=== PATIENT | male | born 1955 | race Caucasian/White ===

== ENCOUNTER 2018-02-01 16:32 | Inpatient (IN) | payer MEDICARE, MEDICAID ==
--- NOTE | 2018-02-01 17:27 | ED Physician Chart ---
ED Chief Complaint/HPI - Patient Information Date Seen:: 02/01/18 Time Seen:: 16:30 Chief Complaint:: Agitation History of Present Illness:: onset x 2 days of agitation and hostile behavior; no report of trauma, SIs, H/As , S/T, neck pain, cough, C/P, SOB, Abd. Pain, A/N/V/D/C, fever, chills, or urinary s/s Allergies:: Allergies Allergy/AdvReac Type Severity Reaction Status Date / Time lidocaine Allergy Verified 02/01/18 16:48 Penicillins [PCN] Allergy Verified 02/01/18 16:48 triethanolamine AdvReac Verified 02/01/18 16:48 Vitals:: Vital Signs - 8 hr 02/01/18 16:32 Temp 98.0 F HR 51 RR 16 BP 149/80 O2 Sat % 96 Historian:: Patient, EMS Review:: Nurse's Note Reviewed, Old Chart Reviewed, EMS run form Reviewed ED Review of Systems - Review of Systems General/Constitutional: No fever, No chills, No weight loss, Weakness, No diaphoresis, No edema, No loss of appetite Skin: No skin lesions, No rash, No bruising Head: No headache, No light-headedness Eyes: No loss of vision, No pain, No diplopia ENT: No earache, No nasal drainage, No sore throat, No tinnitus Neck: No neck pain, No swelling, No thyromegaly, No stiffness, No mass noted Cardio Vascular: No chest pain, No palpitations, No PND, No orthopnea, No edema Pulmonary: No SOB, No cough, No sputum, No wheezing GI: No nausea, No vomiting, No diarrhea, No pain, No melena, No hematochezia, No constipation, No hematemesis G/U: No dysuria, No frequency, No hematuria, No nacturia Musculoskeletal: No bone or joint pain, No back pain, No muscle pain Endocrine: No polyuria, No polydipsia Psychiatric: No prior psych history, No depression, No anxiety, No suicidal ideation, No homicidal ideation, No auditory hallucination, No visual hallucination Hematopoietic: No bruising, No lymphadenopathy Allergic/Immuno: No urticaria, No angioedema Neurological: No syncope, No focal symptoms, Weakness, No paresthesia, No headache, No seizure, No dizziness, Confusion, No vertigo ED Past Medical History - Past Medical History Obtainable: Yes Past Medical History: HTN, CVA/TIA, Dyslipidemia, PUD/GERD, Dementia, Other ( Cirrhosis) Family History: HTN Social History: Non Smoker, Alcohol, No Drug Use, Single, Care Facility Surgical History: None Psychiatricy History: Bipolar, Dementia Medication: Reviewed Family Medical History - Family Member Mother History Unknown: Yes Ethnicity: Non- Living Status: Unknown ED Physical Exam - Physical Examination General/Constitutional: Awake, Well-developed, well-nourished, Alert, No distress, GCS 15, Non-toxic appearing, Ambulatory Head: Atraumatic Eyes: Lids, conjuctiva normal, PERRL, EOMI Skin: Nl inspection, No rash, No skin lesions, No ecchymosis, Well hydrated, No lymphadenopathy ENMT: External ears, nose nl, TM canals nl, Nasal exam nl, Lips, teeth, gums nl , Oropharynx nl, Tonsils nl Neck: Nontender, Full ROM w/o pain, No JVD, No nuchal rigidity, No bruit, No mass, No stridor Respiratory: Nl effort/Exclusion, Clear to Auscultation, No Wheeze/Rhonchi/Rales Cardio Vascular: RRR, No murmur, gallop, rubs, NL S1 S2, Carotid/Femoral/Distal pulses equal bilaterally GI: No tenderness/rebounding/guarding, No organomegaly, No hernia, Normal BS's, Nondistended, No mass/bruits, No McBurney tenderness : No CVA tenderness Extremities: No tenderness or effusion, Full ROM, normal strength in all extremities, No edema, Normal digits & nails Neuro/Psych: Alert/oriented, DTR's symmetric, Normal sensory exam, Normal motor strength, Judgement/insight normal, Mood normal, Normal gait, No focal deficits Other Neuro/Psych comments:: + Psychomotor Agitation; no SIs; Mood/Affect: Labile; Misc: Normal back, No paraspinal tenderness ED Labs/Radiology/EKG Results - Lab Results Comments:: unremarkable - EKG Interpretations EKG Time:: 17:08 Rate & Rhythm: 49; SB Comments:: non-specific st-t changes ED Septic Shock - . Is Septic Shock (SBP<90, OR Lactate>4 mmol\L) present?: No - <6hrs of presentation: Vital Signs: Vital Signs - 8 hr 02/01/18 16:32 Temp 98.0 F HR 51 RR 16 BP 149/80 O2 Sat % 96 ED Reassessment (Disposition) - Reassessment Reassessment Condition:: Improved - Diagnosis Diagnosis:: Agitation; Bipolar Disorder; Medical Clearance; Psychosis - Aftercare/Follow up Instructions Aftercare/Follow-Up Instructions:: Counseled pt regarding lab results/diagnosis & need follow up, Counseled pt & family regarding lab results/diagnosis & need follow up - Patient Disposition Discharge/Transfer:: Acute Care w/in this hosp Admitted to:: [facility] Condition at Disposition:: Stable, Improved ED Discharge Plan - Patient Disposition Instructions: Psychosis
[2018-02-01 17:29] LABS: % MONOCYTES 8.3 % (2.0-10.0); EOSINOPHILE ABSOLUTE 0.1 Th/cmm (0.1-0.4); MEAN CORPUSCULAR HGB CONC 33.6 pg (28.0-36.0); MONOCYTE ABSOLUTE 0.4 Th/cmm (0.3-1.0)
[2018-02-01 17:32] LABS: % BASOPHILS 0.9 % (0.0-2.0); % EOSINOPHILS 2.9 % (0.0-5.0); % LYMPHOCYTES 44.3 % (20.0-50.0); % NEUTROPHILS 43.6 % (40.0-80.0); HEMATOCRIT 43.7 % (41.0-60); HEMOGLOBIN 14.7 gm/dL (12-16); MEAN CELL VOLUME 88.6 fl (80-99); MEAN CORPUSCULAR HEMOGLOBIN 29.7 pg (27.0-31.0); PLATELET COUNT 89 Th/cmm (150-400); RED BLOOD COUNT 4.93 Mil/cmm (3.80-5.80); RED CELL DISTRIBUTION WIDTH 13.9 % (11.5-20.0); WHITE BLOOD COUNT 4.5 Th/cmm (4.8-10.8)
[2018-02-01 19:15] LABS: ALBUMIN 3.4 gm/dL (4.2-5.5); ALKALINE PHOSPHATASE 62 U/L (34-104); ANION GAP 9.7 (7.0-16.0); BILIRUBIN,TOTAL 0.4 mg/dL (0.3-1.0); BUN - UREA NITROGEN 17 mg/dL (7-25); CALCIUM SERUM 8.8 mg/dL (8.6-10.3); CARBON DIOXIDE 25.6 mEq/L (21.0-31.0); CHLORIDE 107 mEq/L (98-107); CHOLESTEROL 146 mg/dL (<200); CREATININE - SERUM 1.3 mg/dL (0.7-1.3); GFR AFRICAN-AMERICAN > 60.0 ml/min (>90); GFR NON AFRICAN-AMERICAN 58.9 ml/min; GLUCOSE 89 mg/dL (70-105); HDL -HIGH DENSITY LIPOPROTEIN 27 mg/dL (23-92); POTASSIUM SERUM 4.3 mEq/L (3.5-5.1); SALICYLATES (ASPIRIN) < 25.0 mg/L (30.0-100.0); SGOT 85 U/L (13-39); SGPT/ALT 100 U/L (7-52); SODIUM SERUM 138 mEq/L (136-145); TOTAL PROTEIN,SERUM 6.9 gm/dL (6.0-8.3); TRIGLYCERIDES 114 mg/dL (<150)
[2018-02-01 19:35] LABS: ACETAMINOPHEN < 10.0 ug/mL (10.0-30.0)
[2018-02-01 23:35] VITALS: BP 140/75
[2018-02-01] MEDS ORDERED: APAP/Codeine 300 mg/30 mg Tab PO PRN (23:52)
[2018-02-01] MEDS ORDERED: Magnesium Hydroxide (MOM) 30 mL UDC PO PRN (23:52)
[2018-02-02] MEDS: Multivitamin w/ Minerals Tab PO SCH (09:18)
[2018-02-02] MEDS: Aspirin 81mg Chewable Tab PO SCH (09:18)
[2018-02-02 13:32] LABS: A1C % 5.6 % (4.0-6.0)
--- NOTE | 2018-02-02 13:33 | Internal Medicine Prog Note ---
Internal Medicine Subjective - Subjective Service Date: 02/02/18 ([id number]) Internal Medicine Objective - Results Result Diagrams: 02/01/18 17:20 02/01/18 17:20 Recent Labs: Laboratory Last Values WBC 4.5 Th/cmm (4.8-10.8) L 02/01/18 17:20 RBC 4.93 Mil/cmm (3.80-5.80) 02/01/18 17:20 Hgb 14.7 gm/dL (12-16) 02/01/18 17:20 Hct 43.7 % (41.0-60) 02/01/18 17:20 MCV 88.6 fl (80-99) 02/01/18 17:20 MCH 29.7 pg (27.0-31.0) 02/01/18 17:20 MCHC Differential 33.6 pg (28.0-36.0) 02/01/18 17:20 RDW 13.9 % (11.5-20.0) 02/01/18 17:20 Plt Count 89 Th/cmm (150-400) L 02/01/18 17:20 MPV 8.0 fl 02/01/18 17:20 Neutrophils % 43.6 % (40.0-80.0) 02/01/18 17:20 Lymphocytes % 44.3 % (20.0-50.0) 02/01/18 17:20 Monocytes % 8.3 % (2.0-10.0) 02/01/18 17:20 Eosinophils % 2.9 % (0.0-5.0) 02/01/18 17:20 Basophils % 0.9 % (0.0-2.0) 02/01/18 17:20 Sodium 138 mEq/L (136-145) 02/01/18 17:20 Potassium 4.3 mEq/L (3.5-5.1) 02/01/18 17:20 Chloride 107 mEq/L (98-107) 02/01/18 17:20 Carbon Dioxide 25.6 mEq/L (21.0-31.0) 02/01/18 17:20 Anion Gap 9.7 (7.0-16.0) 02/01/18 17:20 BUN 17 mg/dL (7-25) 02/01/18 17:20 Creatinine 1.3 mg/dL (0.7-1.3) 02/01/18 17:20 Est GFR ( Amer) > 60.0 ml/min (>90) 02/01/18 17:20 Est GFR (Non-Af Amer) 58.9 ml/min 02/01/18 17:20 BUN/Creatinine Ratio 13.1 02/01/18 17:20 Glucose 89 mg/dL (70-105) 02/01/18 17:20 Calcium 8.8 mg/dL (8.6-10.3) 02/01/18 17:20 Total Bilirubin 0.4 mg/dL (0.3-1.0) 02/01/18 17:20 AST 85 U/L (13-39) H 02/01/18 17:20 ALT 100 U/L (7-52) H 02/01/18 17:20 Alkaline Phosphatase 62 U/L (34-104) 02/01/18 17:20 Total Protein 6.9 gm/dL (6.0-8.3) 02/01/18 17:20 Albumin 3.4 gm/dL (4.2-5.5) L 02/01/18 17:20 Globulin 3.5 gm/dL 02/01/18 17:20 Albumin/Globulin Ratio 1.0 (1.0-1.8) 02/01/18 17:20 Triglycerides 114 mg/dL (<150) 02/01/18 17:20 Cholesterol 146 mg/dL (<200) 02/01/18 17:20 LDL Cholesterol Direct 103 mg/dL (75-193) 02/01/18 17:20 HDL Cholesterol 27 mg/dL (23-92) 02/01/18 17:20 TSH 6.79 uIU/ml (0.34-5.60) H 02/01/18 17:20 Salicylates < 25.0 mg/L (30.0-100.0) L 02/01/18 17:20 Acetaminophen < 10.0 ug/mL (10.0-30.0) L 02/01/18 17:20 Ethyl Alcohol < 10 mg/dL (0-10) 02/01/18 17:20 - Physical Exam Vitals and I&O: Vital Signs Temp 97.8 F 02/01/18 21:40 Pulse 59 02/02/18 09:19 Resp 18 02/01/18 21:40 BP 107/57 02/02/18 09:19 Pulse Ox 96 02/01/18 21:40 Active Medications: Current Medications Acetaminophen (Tylenol) 650 mg PO Q4HR PRN PRN Reason: PAIN Stop: 04/02/18 23:51 Acetaminophen/Codeine Phosphate (Tylenol W/Codeine #3) 1 tab PO QID PRN PRN Reason: PAIN Stop: 04/02/18 23:51 Amiodarone HCl (Cordarone) 200 mg PO BID [facility] Stop: 04/03/18 08:59 Last Admin: 02/02/18 09:11 Dose: Not Given Aspirin (Aspirin Chewable) 162 mg PO DAILY [facility] Stop: 04/03/18 08:59 Last Admin: 02/02/18 09:18 Dose: 162 mg Digoxin (Lanoxin) 0.125 mg PO MWF [facility] Stop: 04/05/18 08:59 Docusate Sodium (Colace) 100 mg PO DAILY [facility] Stop: 04/03/18 08:59 Last Admin: 02/02/18 09:18 Dose: 100 mg Famotidine (Pepcid) 20 mg PO BID [facility] Stop: 04/03/18 08:59 Last Admin: 02/02/18 09:18 Dose: 20 mg Lorazepam (Ativan) 0.5 mg PO Q6HR PRN; Protocol PRN Reason: Anxiety Stop: 04/03/18 02:36 Magnesium Hydroxide (Milk Of Magnesia) 30 ml PO DAILY PRN PRN Reason: Constipation Stop: 04/02/18 23:51 Metoprolol Tartrate (Lopressor) 25 mg PO BID [facility] Stop: 04/03/18 08:59 Last Admin: 02/02/18 09:19 Dose: Not Given Mirtazapine (Remeron) 30 mg PO HS [facility] Stop: 04/03/18 20:59 Rivaroxaban (Xarelto) 10 mg PO DAILY [facility] Stop: 04/03/18 08:59 Last Admin: 02/02/18 09:20 Dose: Not Given Sucralfate (Carafate) 1 gm PO ACHS [facility] Stop: 04/03/18 07:29 Last Admin: 02/02/18 12:30 Dose: Not Given Zolpidem Tartrate (Ambien) 5 mg PO HS PRN PRN Reason: Insomnia Stop: 04/03/18 02:40
--- NOTE | 2018-02-02 14:42 | History & Physical ---
ADMIT DATE: 02/02/2018 CHIEF COMPLAINT: Agitation. HISTORY OF PRESENT ILLNESS: This is a 63-year-old male, who is a [place] [facility] resident, admitted to the Geropsych Unit due to a 3-day history of agitation, hostile behavior towards nursing staff. PAST MEDICAL HISTORY: Hypertension, CVA, TIA, dyslipidemia, PAD, GERD, dementia, and cirrhosis. FAMILY HISTORY: Noncontributory. SOCIAL HISTORY: The patient is a [place] [facility] resident, requiring 24-hour nursing care. SURGICAL HISTORY: Unknown. MEDICATIONS: Please see medication sheet. REVIEW OF SYSTEMS: GENERAL: Denies any fevers, any chills. CARDIOVASCULAR: Denies chest pain. RESPIRATORY: Denies shortness of breath. GASTROINTESTINAL: Denies nausea, vomiting, or abdominal pain. GENITOURINARY: Denies increased frequency or dysuria. NEUROLOGIC: No headaches, seizure, or syncope. All other systems are reviewed and are negative. PHYSICAL EXAMINATION: GENERAL: The patient is well developed, well nourished, in no acute distress. VITAL SIGNS: Temperature 97.8, heart rate 72, blood pressure 149/80, respiration 18, and O2 saturation 96%. HEENT: Head is normocephalic, atraumatic. NECK: Supple. No mass. LUNGS: Clear bilaterally. HEART: Regular rhythm. ABDOMEN: Soft and nontender. LABORATORY DATA: WBC 4.5, H and H 14.7 and 42.7, and platelet of 89. Sodium 138, potassium 4.3, chloride 107, BUN 17, and creatinine 1.3. ASSESSMENT: Agitation, hypertension, dyslipidemia, gastroesophageal reflux disease, dementia, and cirrhosis. PLAN: Monitor the patient's blood pressure. We will adjust it if needed. Fall precautions will be initiated. Continue PPI. We will continue to follow this patient. JOB# [id number]
--- NOTE | 2018-02-02 17:14 | Psychosocial Evaluation ---
DATE OF SERVICE: 02/02/2018 IDENTIFYING DATA: The patient is a 63-year-old male, resident of [facility] in [place]. Information obtained directly interviewing the patient as well as reviewing the admission papers. JUSTIFICATION OF HOSPITALIZATION: The patient is admitted here on a voluntary basis in view of his agitation. CHIEF COMPLAINT: "I am upset." HISTORY OF PRESENT ILLNESS: This is the first psychiatric hospitalization to [facility] for this patient who is diagnosed to have hemiplegia and cirrhosis of the liver and has been reported to have been getting easily irritable and angry and hence the patient could not be contained at a lower level of care and hence the patient has been transferred over here for stabilization. I tried to interview the patient, but he is very difficult to understand his speech, but the patient, however, has been able to verbalize some of his concerns. The patient has been getting easily frustrated. The patient has this possibly because of the speech impairment. The patient is reported to have been treated with Remeron for his depression and insomnia and at this time the patient is reported to have been having difficult time to cope with the irritability and anger, hence has been referred. Sleep and appetite prior to the hospitalization are reported to be poor. PAST PSYCHIATRIC HISTORY: Details are not known. MEDICAL HISTORY AND PHYSICAL EXAMINATION: Requested to be done by Dr. Carter. SUBSTANCE ABUSE HISTORY: The patient denies use of any alcohol or drugs now, but patient carries a diagnosis of cirrhosis of the liver. SOCIAL HISTORY: The patient is a resident of the care home facility. MENTAL STATUS EXAMINATION: The patient is a 63-year-old, looking his stated age, superficially cooperative. Eye contact is poor. Mood is noted to be irritable. Affect is constricted. Insight and judgment are noted to be still impaired. Impulse control is noted to be poor. Coping skills are also noted to be very poor. The patient has been having difficult time to cope with the stress. The patient is getting easily irritable and angry. The patient is alert, awake and the patient is fully aware that he is in the hospital. The patient's coping skills at this time are noted to be poor. Attention span and concentration are also noted to be very poor. DIAGNOSTIC IMPRESSION: 1a. Major depressive disorder, recurrent, by history. AXIS II: None. AXIS III: As per Dr. Carter. IMMEDIATE TREATMENT PLAN: The patient is going to be observed on the inpatient unit. Provided with supportive psychotherapy. The patient is going to be closely monitored and stabilized. The patient is going to be discharged to self to be followed up on an outpatient basis. JOB# [id number]
[2018-02-03] MEDS: Multivitamin w/ Minerals Tab PO SCH (09:44)
[2018-02-03] MEDS: Aspirin 81mg Chewable Tab PO SCH (09:44)
--- NOTE | 2018-02-03 12:43 | Internal Medicine Prog Note ---
Internal Medicine Subjective - Subjective Service Date: 02/03/18 Patient seen and examined:: with staff Internal Medicine Objective - Results Result Diagrams: 02/01/18 17:20 02/01/18 17:20 Recent Labs: Laboratory Last Values WBC 4.5 Th/cmm (4.8-10.8) L 02/01/18 17:20 RBC 4.93 Mil/cmm (3.80-5.80) 02/01/18 17:20 Hgb 14.7 gm/dL (12-16) 02/01/18 17:20 Hct 43.7 % (41.0-60) 02/01/18 17:20 MCV 88.6 fl (80-99) 02/01/18 17:20 MCH 29.7 pg (27.0-31.0) 02/01/18 17:20 MCHC Differential 33.6 pg (28.0-36.0) 02/01/18 17:20 RDW 13.9 % (11.5-20.0) 02/01/18 17:20 Plt Count 89 Th/cmm (150-400) L 02/01/18 17:20 MPV 8.0 fl 02/01/18 17:20 Neutrophils % 43.6 % (40.0-80.0) 02/01/18 17:20 Lymphocytes % 44.3 % (20.0-50.0) 02/01/18 17:20 Monocytes % 8.3 % (2.0-10.0) 02/01/18 17:20 Eosinophils % 2.9 % (0.0-5.0) 02/01/18 17:20 Basophils % 0.9 % (0.0-2.0) 02/01/18 17:20 Sodium 138 mEq/L (136-145) 02/01/18 17:20 Potassium 4.3 mEq/L (3.5-5.1) 02/01/18 17:20 Chloride 107 mEq/L (98-107) 02/01/18 17:20 Carbon Dioxide 25.6 mEq/L (21.0-31.0) 02/01/18 17:20 Anion Gap 9.7 (7.0-16.0) 02/01/18 17:20 BUN 17 mg/dL (7-25) 02/01/18 17:20 Creatinine 1.3 mg/dL (0.7-1.3) 02/01/18 17:20 Est GFR ( Amer) > 60.0 ml/min (>90) 02/01/18 17:20 Est GFR (Non-Af Amer) 58.9 ml/min 02/01/18 17:20 BUN/Creatinine Ratio 13.1 02/01/18 17:20 Glucose 89 mg/dL (70-105) 02/01/18 17:20 Hemoglobin A1c % 5.6 % (4.0-6.0) 02/01/18 17:20 Calcium 8.8 mg/dL (8.6-10.3) 02/01/18 17:20 Total Bilirubin 0.4 mg/dL (0.3-1.0) 02/01/18 17:20 AST 85 U/L (13-39) H 02/01/18 17:20 ALT 100 U/L (7-52) H 02/01/18 17:20 Alkaline Phosphatase 62 U/L (34-104) 02/01/18 17:20 Total Protein 6.9 gm/dL (6.0-8.3) 02/01/18 17:20 Albumin 3.4 gm/dL (4.2-5.5) L 02/01/18 17:20 Globulin 3.5 gm/dL 02/01/18 17:20 Albumin/Globulin Ratio 1.0 (1.0-1.8) 02/01/18 17:20 Triglycerides 114 mg/dL (<150) 02/01/18 17:20 Cholesterol 146 mg/dL (<200) 02/01/18 17:20 LDL Cholesterol Direct 103 mg/dL (75-193) 02/01/18 17:20 HDL Cholesterol 27 mg/dL (23-92) 02/01/18 17:20 TSH 6.79 uIU/ml (0.34-5.60) H 02/01/18 17:20 Salicylates < 25.0 mg/L (30.0-100.0) L 02/01/18 17:20 Acetaminophen < 10.0 ug/mL (10.0-30.0) L 02/01/18 17:20 Ethyl Alcohol < 10 mg/dL (0-10) 02/01/18 17:20 - Physical Exam Vitals and I&O: Vital Signs Temp 97.6 F 02/03/18 06:43 Pulse 60 02/03/18 09:34 Resp 20 02/03/18 06:43 BP 117/65 02/03/18 09:34 Pulse Ox 96 02/03/18 06:43 Intake & Output 02/02/18 02/03/18 02/03/18 18:59 06:59 18:59 Intake Total 1000 120 Balance 1000 120 Intake: Oral 1000 120 Other: # Voids 4 3 # Bowel Movements 1 Active Medications: Current Medications Acetaminophen (Tylenol) 650 mg PO Q4HR PRN PRN Reason: PAIN Stop: 04/02/18 23:51 Acetaminophen/Codeine Phosphate (Tylenol W/Codeine #3) 1 tab PO QID PRN PRN Reason: PAIN Stop: 04/02/18 23:51 Amiodarone HCl (Cordarone) 200 mg PO BID [facility] Stop: 04/03/18 08:59 Last Admin: 02/03/18 09:33 Dose: Not Given Aspirin (Aspirin Chewable) 162 mg PO DAILY [facility] Stop: 04/03/18 08:59 Last Admin: 02/03/18 09:44 Dose: 162 mg Digoxin (Lanoxin) 0.125 mg PO MWF [facility] Stop: 04/05/18 08:59 Docusate Sodium (Colace) 100 mg PO DAILY [facility] Stop: 04/03/18 08:59 Last Admin: 02/03/18 09:44 Dose: 100 mg Famotidine (Pepcid) 20 mg PO BID [facility] Stop: 04/03/18 08:59 Last Admin: 02/03/18 09:44 Dose: 20 mg Lorazepam (Ativan) 0.5 mg PO Q6H PRN; Protocol PRN Reason: Anxiety Stop: 04/03/18 02:36 Last Admin: 02/03/18 09:44 Dose: 0.5 mg Magnesium Hydroxide (Milk Of Magnesia) 30 ml PO DAILY PRN PRN Reason: Constipation Stop: 04/02/18 23:51 Metoprolol Tartrate (Lopressor) 25 mg PO BID [facility] Stop: 04/03/18 08:59 Last Admin: 02/03/18 09:34 Dose: Not Given Mirtazapine (Remeron) 30 mg PO HS [facility] Stop: 04/03/18 20:59 Last Admin: 02/02/18 20:18 Dose: 30 mg Rivaroxaban (Xarelto) 10 mg PO DAILY [facility] Stop: 04/03/18 08:59 Last Admin: 02/03/18 09:44 Dose: 10 mg Sucralfate (Carafate) 1 gm PO ACHS [facility] Stop: 04/03/18 07:29 Last Admin: 02/03/18 11:49 Dose: 1 gm Zolpidem Tartrate (Ambien) 5 mg PO HS PRN PRN Reason: Insomnia Stop: 04/03/18 02:40 General: alert HEENT: NC/AT, PERRLA Neck: Supple Lungs: CTAB Cardiovascular: RRR, Normal S1, without murmur Neurological: no change Internal Medicine Assmt/Plan - Assessment Assessment: agitation htn dyslipidemia gerd dementia cirrohosis - Plan Plan: monitor bp fall precautions continue current plan of care
--- NOTE | 2018-02-03 17:14 | Progress Notes ---
DATE: 02/03/2018 SUBJECTIVE: Staff was spoken to. The patient is interviewed. Mood is noted to be irritable. Affect is constricted. Coping skills are noted to be still poor. The patient is getting easily frustrated. The patient has problem with his speech and because of speech impediment, the patient is not able to verbalize the concerns appropriately. The patient is getting however easily frustrated and agitated. ASSESSMENT: The patient is still having impulsivity problems. PLAN: To continue the patient with the supportive therapy and followup. JOB# [id number]
[2018-02-04] MEDS: Aspirin 81mg Chewable Tab PO SCH (09:24)
[2018-02-04] MEDS: Multivitamin w/ Minerals Tab PO SCH (09:25)
--- NOTE | 2018-02-04 13:17 | Internal Medicine Prog Note ---
Internal Medicine Subjective - Subjective Service Date: 02/04/18 Patient seen and examined:: with staff Patient is:: awake, confused Per staff patient has:: tolerating meds Internal Medicine Objective - Results Result Diagrams: 02/01/18 17:20 02/01/18 17:20 Recent Labs: Laboratory Last Values WBC 4.5 Th/cmm (4.8-10.8) L 02/01/18 17:20 RBC 4.93 Mil/cmm (3.80-5.80) 02/01/18 17:20 Hgb 14.7 gm/dL (12-16) 02/01/18 17:20 Hct 43.7 % (41.0-60) 02/01/18 17:20 MCV 88.6 fl (80-99) 02/01/18 17:20 MCH 29.7 pg (27.0-31.0) 02/01/18 17:20 MCHC Differential 33.6 pg (28.0-36.0) 02/01/18 17:20 RDW 13.9 % (11.5-20.0) 02/01/18 17:20 Plt Count 89 Th/cmm (150-400) L 02/01/18 17:20 MPV 8.0 fl 02/01/18 17:20 Neutrophils % 43.6 % (40.0-80.0) 02/01/18 17:20 Lymphocytes % 44.3 % (20.0-50.0) 02/01/18 17:20 Monocytes % 8.3 % (2.0-10.0) 02/01/18 17:20 Eosinophils % 2.9 % (0.0-5.0) 02/01/18 17:20 Basophils % 0.9 % (0.0-2.0) 02/01/18 17:20 Sodium 138 mEq/L (136-145) 02/01/18 17:20 Potassium 4.3 mEq/L (3.5-5.1) 02/01/18 17:20 Chloride 107 mEq/L (98-107) 02/01/18 17:20 Carbon Dioxide 25.6 mEq/L (21.0-31.0) 02/01/18 17:20 Anion Gap 9.7 (7.0-16.0) 04/06/18 17:20 BUN 17 mg/dL (7-25) 02/01/18 17:20 Creatinine 1.3 mg/dL (0.7-1.3) 02/01/18 17:20 Est GFR ( Amer) > 60.0 ml/min (>90) 02/01/18 17:20 Est GFR (Non-Af Amer) 58.9 ml/min 02/01/18 17:20 BUN/Creatinine Ratio 13.1 02/01/18 17:20 Glucose 89 mg/dL (70-105) 02/01/18 17:20 Hemoglobin A1c % 5.6 % (4.0-6.0) 02/01/18 17:20 Calcium 8.8 mg/dL (8.6-10.3) 02/01/18 17:20 Total Bilirubin 0.4 mg/dL (0.3-1.0) 02/01/18 17:20 AST 85 U/L (13-39) H 02/01/18 17:20 ALT 100 U/L (7-52) H 02/01/18 17:20 Alkaline Phosphatase 62 U/L (34-104) 02/01/18 17:20 Total Protein 6.9 gm/dL (6.0-8.3) 02/01/18 17:20 Albumin 3.4 gm/dL (4.2-5.5) L 02/01/18 17:20 Globulin 3.5 gm/dL 02/01/18 17:20 Albumin/Globulin Ratio 1.0 (1.0-1.8) 02/01/18 17:20 Triglycerides 114 mg/dL (<150) 02/01/18 17:20 Cholesterol 146 mg/dL (<200) 02/01/18 17:20 LDL Cholesterol Direct 103 mg/dL (75-193) 02/01/18 17:20 HDL Cholesterol 27 mg/dL (23-92) 02/01/18 17:20 TSH 6.79 uIU/ml (0.34-5.60) H 02/01/18 17:20 Salicylates < 25.0 mg/L (30.0-100.0) L 02/01/18 17:20 Acetaminophen < 10.0 ug/mL (10.0-30.0) L 02/01/18 17:20 Ethyl Alcohol < 10 mg/dL (0-10) 02/01/18 17:20 - Physical Exam Vitals and I&O: Vital Signs Temp 97.2 F 02/04/18 06:02 Pulse 65 02/04/18 09:25 Resp 20 02/04/18 06:02 BP 96/50 02/04/18 09:25 Pulse Ox 94 02/04/18 06:02 Intake & Output 02/03/18 02/04/18 02/04/18 18:59 06:59 18:59 Intake Total 2400 120 Balance 2400 120 Intake: Oral 2400 120 Other: # Voids 4 3 # Bowel Movements 1 0 Active Medications: Current Medications Acetaminophen (Tylenol) 650 mg PO Q4HR PRN PRN Reason: PAIN Stop: 04/02/18 23:51 Acetaminophen/Codeine Phosphate (Tylenol W/Codeine #3) 1 tab PO QID PRN PRN Reason: PAIN Stop: 04/02/18 23:51 Amiodarone HCl (Cordarone) 200 mg PO BID [facility] Stop: 04/03/18 08:59 Last Admin: 02/04/18 09:24 Dose: 200 mg Aspirin (Aspirin Chewable) 162 mg PO DAILY [facility] Stop: 04/03/18 08:59 Last Admin: 02/04/18 09:24 Dose: 162 mg Digoxin (Lanoxin) 0.125 mg PO MWF [facility] Stop: 04/05/18 08:59 Last Admin: 02/04/18 09:24 Dose: 0.125 mg Docusate Sodium (Colace) 100 mg PO DAILY [facility] Stop: 04/03/18 08:59 Last Admin: 02/04/18 09:25 Dose: 100 mg Famotidine (Pepcid) 20 mg PO BID [facility] Stop: 04/03/18 08:59 Last Admin: 02/04/18 09:25 Dose: 20 mg Lorazepam (Ativan) 0.5 mg PO Q6H PRN; Protocol PRN Reason: Anxiety Stop: 04/03/18 02:36 Last Admin: 02/03/18 09:44 Dose: 0.5 mg Magnesium Hydroxide (Milk Of Magnesia) 30 ml PO DAILY PRN PRN Reason: Constipation Stop: 04/02/18 23:51 Metoprolol Tartrate (Lopressor) 25 mg PO BID [facility] Stop: 04/03/18 08:59 Last Admin: 02/04/18 09:25 Dose: Not Given Mirtazapine (Remeron) 30 mg PO HS [facility] Stop: 04/03/18 20:59 Last Admin: 02/03/18 20:46 Dose: 30 mg Rivaroxaban (Xarelto) 10 mg PO DAILY [facility] Stop: 04/03/18 08:59 Last Admin: 02/04/18 09:25 Dose: 10 mg Sucralfate (Carafate) 1 gm PO ACHS [facility] Stop: 04/03/18 07:29 Last Admin: 02/04/18 12:27 Dose: Not Given Zolpidem Tartrate (Ambien) 5 mg PO HS PRN PRN Reason: Insomnia Stop: 04/03/18 02:40 Last Admin: 02/03/18 20:46 Dose: 5 mg General: alert HEENT: NC/AT, PERRLA Neck: Supple Lungs: CTAB Cardiovascular: RRR, Normal S1, without murmur Neurological: no change Internal Medicine Assmt/Plan - Assessment Assessment: agitation htn dyslipidemia gerd dementia cirrohosis - Plan Plan: monitor bp fall precautions continue current plan of care
--- NOTE | 2018-02-05 02:06 | Progress Notes ---
DATE: 02/04/2018 SUBJECTIVE: Staff was spoken to. The patient is interviewed. Mood is noted to be depressed. Affect is constricted. The patient is isolative and withdrawn. The patient is getting frustrated. The patient is not able to express clearly because of his speech impediment. Coping skills are noted to be poor. The patient is getting easily frustrated and agitated. ASSESSMENT: The patient is still impulsive. PLAN: To continue the patient with the supportive therapy. I encouraged the patient to verbalize the concerns rather than to act out. JOB# [id number]
[2018-02-05] MEDS: Multivitamin w/ Minerals Tab PO SCH (09:24)
[2018-02-05] MEDS: Aspirin 81mg Chewable Tab PO SCH (09:25)
--- NOTE | 2018-02-05 13:14 | Internal Medicine Prog Note ---
Internal Medicine Subjective - Subjective Service Date: 02/05/18 Patient is:: awake, confused Per staff patient has:: tolerating meds Internal Medicine Objective - Results Result Diagrams: 02/01/18 17:20 02/01/18 17:20 Recent Labs: Laboratory Last Values WBC 4.5 Th/cmm (4.8-10.8) L 02/01/18 17:20 RBC 4.93 Mil/cmm (3.80-5.80) 02/01/18 17:20 Hgb 14.7 gm/dL (12-16) 02/01/18 17:20 Hct 43.7 % (41.0-60) 02/01/18 17:20 MCV 88.6 fl (80-99) 02/01/18 17:20 MCH 29.7 pg (27.0-31.0) 02/01/18 17:20 MCHC Differential 33.6 pg (28.0-36.0) 02/01/18 17:20 RDW 13.9 % (11.5-20.0) 02/01/18 17:20 Plt Count 89 Th/cmm (150-400) L 02/01/18 17:20 MPV 8.0 fl 02/01/18 17:20 Neutrophils % 43.6 % (40.0-80.0) 02/01/18 17:20 Lymphocytes % 44.3 % (20.0-50.0) 02/01/18 17:20 Monocytes % 8.3 % (2.0-10.0) 02/01/18 17:20 Eosinophils % 2.9 % (0.0-5.0) 02/01/18 17:20 Basophils % 0.9 % (0.0-2.0) 02/01/18 17:20 Sodium 138 mEq/L (136-145) 02/01/18 17:20 Potassium 4.3 mEq/L (3.5-5.1) 02/01/18 17:20 Chloride 107 mEq/L (98-107) 02/01/18 17:20 Carbon Dioxide 25.6 mEq/L (21.0-31.0) 02/01/18 17:20 Anion Gap 9.7 (7.0-16.0) 02/01/18 17:20 BUN 17 mg/dL (7-25) 02/01/18 17:20 Creatinine 1.3 mg/dL (0.7-1.3) 02/01/18 17:20 Est GFR ( Amer) > 60.0 ml/min (>90) 02/01/18 17:20 Est GFR (Non-Af Amer) 58.9 ml/min 02/01/18 17:20 BUN/Creatinine Ratio 13.1 02/01/18 17:20 Glucose 89 mg/dL (70-105) 02/01/18 17:20 Hemoglobin A1c % 5.6 % (4.0-6.0) 02/01/18 17:20 Calcium 8.8 mg/dL (8.6-10.3) 02/01/18 17:20 Total Bilirubin 0.4 mg/dL (0.3-1.0) 02/01/18 17:20 AST 85 U/L (13-39) H 02/01/18 17:20 ALT 100 U/L (7-52) H 02/01/18 17:20 Alkaline Phosphatase 62 U/L (34-104) 02/01/18 17:20 Total Protein 6.9 gm/dL (6.0-8.3) 02/01/18 17:20 Albumin 3.4 gm/dL (4.2-5.5) L 02/01/18 17:20 Globulin 3.5 gm/dL 02/01/18 17:20 Albumin/Globulin Ratio 1.0 (1.0-1.8) 02/01/18 17:20 Triglycerides 114 mg/dL (<150) 02/01/18 17:20 Cholesterol 146 mg/dL (<200) 02/01/18 17:20 LDL Cholesterol Direct 103 mg/dL (75-193) 02/01/18 17:20 HDL Cholesterol 27 mg/dL (23-92) 02/01/18 17:20 TSH 6.79 uIU/ml (0.34-5.60) H 02/01/18 17:20 Salicylates < 25.0 mg/L (30.0-100.0) L 02/01/18 17:20 Acetaminophen < 10.0 ug/mL (10.0-30.0) L 02/01/18 17:20 Ethyl Alcohol < 10 mg/dL (0-10) 02/01/18 17:20 - Physical Exam Vitals and I&O: Vital Signs Temp 97.8 F 02/05/18 06:46 Pulse 83 02/05/18 09:25 Resp 20 02/05/18 06:46 BP 146/65 02/05/18 09:24 Pulse Ox 94 02/05/18 06:46 Intake & Output 02/04/18 02/05/18 02/05/18 18:59 06:59 18:59 Intake Total 950 120 Balance 950 120 Intake: Oral 950 120 Other: # Voids 4 3 # Bowel Movements 1 1 Active Medications: Current Medications Acetaminophen (Tylenol) 650 mg PO Q4HR PRN PRN Reason: PAIN Stop: 04/02/18 23:51 Acetaminophen/Codeine Phosphate (Tylenol W/Codeine #3) 1 tab PO QID PRN PRN Reason: PAIN Stop: 04/02/18 23:51 Amiodarone HCl (Cordarone) 200 mg PO BID [facility] Stop: 04/03/18 08:59 Last Admin: 02/05/18 09:25 Dose: 200 mg Aspirin (Aspirin Chewable) 162 mg PO DAILY [facility] Stop: 04/03/18 08:59 Last Admin: 02/05/18 09:25 Dose: 162 mg Digoxin (Lanoxin) 0.125 mg PO MWF [facility] Stop: 04/05/18 08:59 Last Admin: 02/04/18 09:24 Dose: 0.125 mg Divalproex Sodium (Depakote Dr) 125 mg PO Q12HR [facility] PRN Reason: Protocol Stop: 04/06/18 20:59 Docusate Sodium (Colace) 100 mg PO DAILY [facility] Stop: 04/03/18 08:59 Last Admin: 02/05/18 09:25 Dose: 100 mg Famotidine (Pepcid) 20 mg PO BID [facility] Stop: 04/03/18 08:59 Last Admin: 02/05/18 09:25 Dose: 20 mg Lorazepam (Ativan) 0.5 mg PO Q6H PRN; Protocol PRN Reason: Anxiety Stop: 04/03/18 02:36 Last Admin: 02/04/18 21:27 Dose: 0.5 mg Magnesium Hydroxide (Milk Of Magnesia) 30 ml PO DAILY PRN PRN Reason: Constipation Stop: 04/02/18 23:51 Metoprolol Tartrate (Lopressor) 25 mg PO BID [facility] Stop: 04/03/18 08:59 Last Admin: 02/05/18 09:24 Dose: 25 mg Mirtazapine (Remeron) 30 mg PO HS [facility] Stop: 04/03/18 20:59 Last Admin: 02/04/18 21:27 Dose: 30 mg Rivaroxaban (Xarelto) 10 mg PO DAILY [facility] Stop: 04/03/18 08:59 Last Admin: 02/05/18 09:25 Dose: 10 mg Sucralfate (Carafate) 1 gm PO ACHS [facility] Stop: 04/03/18 07:29 Last Admin: 02/05/18 11:33 Dose: Not Given Zolpidem Tartrate (Ambien) 5 mg PO HS PRN PRN Reason: Insomnia Stop: 04/03/18 02:40 Last Admin: 02/04/18 21:27 Dose: 5 mg General: alert HEENT: NC/AT, PERRLA Neck: Supple Lungs: CTAB Cardiovascular: RRR, Normal S1, without murmur Neurological: no change Internal Medicine Assmt/Plan - Assessment Assessment: agitation htn dyslipidemia gerd dementia cirrohosis - Plan Plan: monitor bp fall precautions continue current plan of care
--- NOTE | 2018-02-05 21:25 | Progress Notes ---
DATE: 02/05/2018 PSYCHIATRIC PROGRESS NOTE SUBJECTIVE: Staff was spoken to. The patient is interviewed. Mood is noted to be irritable. Affect is constricted. The patient has been getting easily frustrated. The patient; however, has been able to participate in the groups. The patient is currently on the mirtazapine 30 mg at bedtime and has been able to tolerate. No side effects to the medications are noted. Sleep and appetite are noted to be improving. The aggression seems to be coming under control. Since the patient has been having mood swings and has been having a problem, the patient is going to be placed on the Depakote, which is going to be given at 125 mg twice a day and the patient is going to be followed up with the supportive therapy. JOB# [id number]
--- NOTE | 2018-02-06 03:42 | Consultation ---
DATE OF CONSULTATION: 02/04/2018 REQUESTING PHYSICIAN: Marlin Gray MD. TYPE OF CONSULTATION: Psychology. HISTORY OF PRESENT ILLNESS: The following is by review of the medical record and by the patient's self report. The patient is a 63-year-old male who was a resident of [facility] in [place]. The patient is being admitted due to increased agitation. The patient presents as having difficulty verbalizing his concerns. The patient's speech is difficult to understand at times. The patient admits to having a history of depression. The patient seemed to be getting frustrated throughout the clinical interview and was difficult to cognitively redirect. The patient did deny having any suicidal ideation, plan or intention. PAST MEDICAL HISTORY: Please see history and physical by Dr. Carter. PAST PSYCHIATRIC HISTORY: Information is unavailable. SUBSTANCE ABUSE HISTORY: The patient has a history of alcohol abuse and/or dependence. The patient did not answer questions about other drug use or any history of illicit or recreational drug use. The patient has a history of a diagnosis of cirrhosis of the liver. The patient did not answer questions about rehabilitation programs that he may have attended or any other types of self-help support. The patient stated that he does not drink and is abstinent from alcohol and drugs. SOCIAL HISTORY: The patient is a resident of [facility]. The patient did not answer questions about occupational history or educational history or orthodoxy affiliation. The patient denied any history of physical or sexual abuse or any legal issues at this time. MENTAL STATUS EXAMINATION: The patient appears to be his stated age. The patient's attitude is superficially cooperative. Eye contact is fair to poor. Mood is irritable and depressed. Affect is constricted. Speech is mumbled and difficult to understand. Thought process seems to be tangential and depressogenic. The patient denied any suicidal ideation, plan or intention. The patient denied any auditory or visual hallucinations or any delusions. The patient's behavior has been easily agitated on the unit. Impulse control is poor. Concentration is poor. The patient was unable to sustain focus and attention. The patient's sensorium is alert and oriented to person and place. The patient did not participate in the interpretation of proverbs. Insight is poor. Judgment is poor. DIAGNOSTIC IMPRESSION: AXIS I: Major depressive disorder, recurrent, severe by history. AXIS II: Deferred. AXIS III: Please see history and physical by Dr. Carter. TREATMENT PLAN: The patient has been seen by Dr. Gray for psychiatric evaluation for the management of the patient's psychotropic medications. The patient will be closely monitored and we will provide supportive psychotherapy which will include coping strategies for phase of life issues. We will discuss coping skills that the patient may have learned in treatment for his substance abuse history. We will provide cognitive behavioral therapy to reduce the patient's depression. We will also provide motivational enhancement for the patient to become compliant with his care and treatment during his hospital stay. Thank you, Dr. Gray, for this consult and the opportunity to participate with you in this patient's care. [facility]# [id number] JONA
[2018-02-06] MEDS: Aspirin 81mg Chewable Tab PO SCH (09:24)
[2018-02-06] MEDS: Multivitamin w/ Minerals Tab PO SCH (09:24)
--- NOTE | 2018-02-06 15:03 | Internal Medicine Prog Note ---
Internal Medicine Subjective - Subjective Service Date: 02/06/18 Patient is:: awake, confused Per staff patient has:: tolerating meds Internal Medicine Objective - Results Result Diagrams: 02/01/18 17:20 02/01/18 17:20 Recent Labs: Laboratory Last Values WBC 4.5 Th/cmm (4.8-10.8) L 02/01/18 17:20 RBC 4.93 Mil/cmm (3.80-5.80) 02/01/18 17:20 Hgb 14.7 gm/dL (12-16) 02/01/18 17:20 Hct 43.7 % (41.0-60) 02/01/18 17:20 MCV 88.6 fl (80-99) 02/01/18 17:20 MCH 29.7 pg (27.0-31.0) 02/01/18 17:20 MCHC Differential 33.6 pg (28.0-36.0) 02/01/18 17:20 RDW 13.9 % (11.5-20.0) 02/01/18 17:20 Plt Count 89 Th/cmm (150-400) L 02/01/18 17:20 MPV 8.0 fl 02/01/18 17:20 Neutrophils % 43.6 % (40.0-80.0) 02/01/18 17:20 Lymphocytes % 44.3 % (20.0-50.0) 02/01/18 17:20 Monocytes % 8.3 % (2.0-10.0) 02/01/18 17:20 Eosinophils % 2.9 % (0.0-5.0) 02/01/18 17:20 Basophils % 0.9 % (0.0-2.0) 02/01/18 17:20 Sodium 138 mEq/L (136-145) 02/01/18 17:20 Potassium 4.3 mEq/L (3.5-5.1) 02/01/18 17:20 Chloride 107 mEq/L (98-107) 02/01/18 17:20 Carbon Dioxide 25.6 mEq/L (21.0-31.0) 02/01/18 17:20 Anion Gap 9.7 (7.0-16.0) 02/01/18 17:20 BUN 17 mg/dL (7-25) 02/01/18 17:20 Creatinine 1.3 mg/dL (0.7-1.3) 02/01/18 17:20 Est GFR ( Amer) > 60.0 ml/min (>90) 02/01/18 17:20 Est GFR (Non-Af Amer) 58.9 ml/min 02/01/18 17:20 BUN/Creatinine Ratio 13.1 02/01/18 17:20 Glucose 89 mg/dL (70-105) 02/01/18 17:20 Hemoglobin A1c % 5.6 % (4.0-6.0) 02/01/18 17:20 Calcium 8.8 mg/dL (8.6-10.3) 02/01/18 17:20 Total Bilirubin 0.4 mg/dL (0.3-1.0) 02/01/18 17:20 AST 85 U/L (13-39) H 02/01/18 17:20 ALT 100 U/L (7-52) H 02/01/18 17:20 Alkaline Phosphatase 62 U/L (34-104) 02/01/18 17:20 Total Protein 6.9 gm/dL (6.0-8.3) 02/01/18 17:20 Albumin 3.4 gm/dL (4.2-5.5) L 02/01/18 17:20 Globulin 3.5 gm/dL 02/01/18 17:20 Albumin/Globulin Ratio 1.0 (1.0-1.8) 02/01/18 17:20 Triglycerides 114 mg/dL (<150) 02/01/18 17:20 Cholesterol 146 mg/dL (<200) 02/01/18 17:20 LDL Cholesterol Direct 103 mg/dL (75-193) 02/01/18 17:20 HDL Cholesterol 27 mg/dL (23-92) 02/01/18 17:20 TSH 6.79 uIU/ml (0.34-5.60) H 02/01/18 17:20 Salicylates < 25.0 mg/L (30.0-100.0) L 02/01/18 17:20 Acetaminophen < 10.0 ug/mL (10.0-30.0) L 02/01/18 17:20 Ethyl Alcohol < 10 mg/dL (0-10) 02/01/18 17:20 - Physical Exam Vitals and I&O: Vital Signs Temp 97.2 F 02/06/18 06:33 Pulse 87 02/06/18 09:25 Resp 20 02/06/18 06:33 BP 160/87 02/06/18 09:25 Pulse Ox 95 02/06/18 06:33 Intake & Output 02/05/18 02/06/18 02/06/18 18:59 06:59 18:59 Intake Total 1200 240 Balance 1200 240 Intake: Oral 1200 240 Other: # Voids 3 2 # Bowel Movements 1 0 Active Medications: Current Medications Acetaminophen (Tylenol) 650 mg PO Q4HR PRN PRN Reason: PAIN Stop: 04/02/18 23:51 Acetaminophen/Codeine Phosphate (Tylenol W/Codeine #3) 1 tab PO QID PRN PRN Reason: PAIN Stop: 04/02/18 23:51 Amiodarone HCl (Cordarone) 200 mg PO BID [facility] Stop: 04/03/18 08:59 Last Admin: 02/06/18 09:25 Dose: 200 mg Aspirin (Aspirin Chewable) 162 mg PO DAILY [facility] Stop: 04/03/18 08:59 Last Admin: 02/06/18 09:24 Dose: 162 mg Digoxin (Lanoxin) 0.125 mg PO MWF [facility] Stop: 04/05/18 08:59 Last Admin: 02/06/18 09:25 Dose: 0.125 mg Divalproex Sodium (Depakote Dr) 125 mg PO Q12HR [facility] PRN Reason: Protocol Stop: 04/06/18 20:59 Last Admin: 02/06/18 09:25 Dose: 125 mg Docusate Sodium (Colace) 100 mg PO DAILY [facility] Stop: 04/03/18 08:59 Last Admin: 02/06/18 09:24 Dose: 100 mg Famotidine (Pepcid) 20 mg PO BID [facility] Stop: 04/03/18 08:59 Last Admin: 02/06/18 09:22 Dose: 20 mg Lorazepam (Ativan) 0.5 mg PO Q6H PRN; Protocol PRN Reason: Anxiety Stop: 04/03/18 02:36 Last Admin: 02/04/18 21:27 Dose: 0.5 mg Magnesium Hydroxide (Milk Of Magnesia) 30 ml PO DAILY PRN PRN Reason: Constipation Stop: 04/02/18 23:51 Metoprolol Tartrate (Lopressor) 25 mg PO BID [facility] Stop: 04/03/18 08:59 Last Admin: 02/06/18 09:25 Dose: 25 mg Mirtazapine (Remeron) 30 mg PO HS [facility] Stop: 04/03/18 20:59 Last Admin: 02/05/18 20:58 Dose: 30 mg Rivaroxaban (Xarelto) 10 mg PO DAILY [facility] Stop: 04/03/18 08:59 Last Admin: 02/06/18 09:22 Dose: 10 mg Sucralfate (Carafate) 1 gm PO ACHS [facility] Stop: 04/03/18 07:29 Last Admin: 02/06/18 12:11 Dose: 1 gm Zolpidem Tartrate (Ambien) 5 mg PO HS PRN PRN Reason: Insomnia Stop: 04/03/18 02:40 Last Admin: 02/05/18 21:06 Dose: 5 mg General: alert HEENT: NC/AT, PERRLA Neck: Supple Lungs: CTAB Cardiovascular: RRR, Normal S1, without murmur Neurological: no change Internal Medicine Assmt/Plan - Assessment Assessment: agitation htn dyslipidemia gerd dementia cirrohosis - Plan Plan: monitor bp fall precautions continue current plan of care Nutritional Asmnt/Malnutr-PDOC - Dietary Evaluation Malnutrition Findings (Please click <Entered> for more info): Nutritional Asmnt/Malnutrition Start: 02/06/18 13: 51 Text: Status: Active Freq: Document 02/06/18 13:51 LCHENG (Rec: 02/06/18 13:58 LCHENG [email or web address]) Nutritional Asmnt/Malnutrition Patient General Information Nutritional Screening Moderate Risk Diagnosis psychosis NOS Pertinent Medical Hx/Surgical Hx HTN, CVA, TIA, dyslipidemia, PAD, GERD, dementia, cirrhosis Subjective Information Per EMR, PO intake 100%. Pt has slureed speech, not able to communicate. Current Diet Order/ Nutrition Support mech soft chopped, ALEXANDER, boost TID Patient / S.O Can't verbalize diet edu Pertinent Medications colace, remeron Pertinent Labs 4/6 alb 3.4 Nutritional Hx/Data Height 5 ft 9 in Height (Calculated Centimeters) 175.3 Current Weight (lbs) 180 lb Weight (Calculated Kilograms) 81.6 Weight (Calculated Grams) 04940.6 [place] Body Weight 160 Body Mass Index (BMI) 26.6 Weight Status Overweight GI Symptoms GI Symptoms None Last BM 4/10 Difficult in: None Skin Integrity/Comment: scab on L arm, Open skin on R arm Current %PO Good (75-100%) Estimated Nutritional Goals Calories/Kcals/Kg 25-30 based on IBW 73kg Kcals Calculated 6705-9443 Protein g/k Protein Calculated 73 Fluid: ml 1825-2190ml (1ml/kcal) Nutritional Problem No current Nutrition Prob Problem N/A Malnutrition Alert Protein-Calorie Malnutrition N/A Is there a minimum of two criteria No selected? Query Text:Check all the applicable criteria. A minimum of two criteria are recommended for diagnosis of either severe or non-severe malnutrition. Intervention/Recommendation Comments 1. Continue with current diet as ordered. 2. Monitor PO intake, wt, labs and skin integrity 3. F/U as low risk in 7 days, 02/13 Expected Outcomes/Goals Expected Outcomes/Goals 1. PO intake to meet at least 75% of nutritional needs. 2. Wt stability, skin to remain intact, labs to approach WNL.
--- NOTE | 2018-02-07 04:39 | Progress Notes ---
DATE: 02/06/2018 SUBJECTIVE: Staff was spoken to. The patient is interviewed. Mood is noted to be irritable. Affect is constricted. Insight and judgment at this time are noted to be still impaired. The patient is able to tolerate the medications. The patient is currently on valproic acid 125 mg twice a day and the patient is also on mirtazapine. The patient's coping skills are noted to be very poor. The patient is getting easily frustrated with regard to him, his inability to express. The patient, however, has been less impulsive. ASSESSMENT: The patient is still depressed and frustrated. PLAN: To continue the patient with supportive therapy, encourage the patient to verbalize the concerns rather than to act out. [facility]# [id number]
[2018-02-07] MEDS: Aspirin 81mg Chewable Tab PO SCH (09:49)
[2018-02-07] MEDS: Multivitamin w/ Minerals Tab PO SCH (09:49)
--- NOTE | 2018-02-07 13:08 | Internal Medicine Prog Note ---
Internal Medicine Subjective - Subjective Service Date: 02/07/18 Patient is:: awake, confused Per staff patient has:: tolerating meds Internal Medicine Objective - Results Result Diagrams: 02/01/18 17:20 02/01/18 17:20 Recent Labs: Laboratory Last Values WBC 4.5 Th/cmm (4.8-10.8) L 02/01/18 17:20 RBC 4.93 Mil/cmm (3.80-5.80) 02/01/18 17:20 Hgb 14.7 gm/dL (12-16) 02/01/18 17:20 Hct 43.7 % (41.0-60) 02/01/18 17:20 MCV 88.6 fl (80-99) 02/01/18 17:20 MCH 29.7 pg (27.0-31.0) 02/01/18 17:20 MCHC Differential 33.6 pg (28.0-36.0) 02/01/18 17:20 RDW 13.9 % (11.5-20.0) 02/01/18 17:20 Plt Count 89 Th/cmm (150-400) L 02/01/18 17:20 MPV 8.0 fl 02/01/18 17:20 Neutrophils % 43.6 % (40.0-80.0) 02/01/18 17:20 Lymphocytes % 44.3 % (20.0-50.0) 02/01/18 17:20 Monocytes % 8.3 % (2.0-10.0) 02/01/18 17:20 Eosinophils % 2.9 % (0.0-5.0) 02/01/18 17:20 Basophils % 0.9 % (0.0-2.0) 02/01/18 17:20 Sodium 138 mEq/L (136-145) 02/01/18 17:20 Potassium 4.3 mEq/L (3.5-5.1) 02/01/18 17:20 Chloride 107 mEq/L (98-107) 02/01/18 17:20 Carbon Dioxide 25.6 mEq/L (21.0-31.0) 02/01/18 17:20 Anion Gap 9.7 (7.0-16.0) 02/01/18 17:20 BUN 17 mg/dL (7-25) 02/01/18 17:20 Creatinine 1.3 mg/dL (0.7-1.3) 02/01/18 17:20 Est GFR ( Amer) > 60.0 ml/min (>90) 02/01/18 17:20 Est GFR (Non-Af Amer) 58.9 ml/min 02/01/18 17:20 BUN/Creatinine Ratio 13.1 02/01/18 17:20 Glucose 89 mg/dL (70-105) 02/01/18 17:20 Hemoglobin A1c % 5.6 % (4.0-6.0) 02/01/18 17:20 Calcium 8.8 mg/dL (8.6-10.3) 02/01/18 17:20 Total Bilirubin 0.4 mg/dL (0.3-1.0) 02/01/18 17:20 AST 85 U/L (13-39) H 02/01/18 17:20 ALT 100 U/L (7-52) H 02/01/18 17:20 Alkaline Phosphatase 62 U/L (34-104) 02/01/18 17:20 Total Protein 6.9 gm/dL (6.0-8.3) 02/01/18 17:20 Albumin 3.4 gm/dL (4.2-5.5) L 02/01/18 17:20 Globulin 3.5 gm/dL 02/01/18 17:20 Albumin/Globulin Ratio 1.0 (1.0-1.8) 02/01/18 17:20 Triglycerides 114 mg/dL (<150) 02/01/18 17:20 Cholesterol 146 mg/dL (<200) 02/01/18 17:20 LDL Cholesterol Direct 103 mg/dL (75-193) 02/01/18 17:20 HDL Cholesterol 27 mg/dL (23-92) 02/01/18 17:20 TSH 6.79 uIU/ml (0.34-5.60) H 02/01/18 17:20 Salicylates < 25.0 mg/L (30.0-100.0) L 02/01/18 17:20 Acetaminophen < 10.0 ug/mL (10.0-30.0) L 02/01/18 17:20 Ethyl Alcohol < 10 mg/dL (0-10) 02/01/18 17:20 RPR NONREACTIVE (NONREACTIVE) 02/01/18 17:20 - Physical Exam Vitals and I&O: Vital Signs Temp 98.2 F 02/07/18 07:00 Pulse 70 02/07/18 09:51 Resp 20 02/07/18 07:00 BP 120/72 02/07/18 09:51 Pulse Ox 98 02/07/18 07:00 Intake & Output 02/06/18 02/07/18 02/07/18 18:59 06:59 18:59 Intake Total 900 120 Balance 900 120 Intake: Oral 900 120 Other: # Voids 2 2 Active Medications: Current Medications Acetaminophen (Tylenol) 650 mg PO Q4HR PRN PRN Reason: PAIN Stop: 04/02/18 23:51 Acetaminophen/Codeine Phosphate (Tylenol W/Codeine #3) 1 tab PO QID PRN PRN Reason: PAIN Stop: 04/02/18 23:51 Amiodarone HCl (Cordarone) 200 mg PO BID [facility] Stop: 04/03/18 08:59 Last Admin: 02/07/18 09:51 Dose: 200 mg Aspirin (Aspirin Chewable) 162 mg PO DAILY [facility] Stop: 04/03/18 08:59 Last Admin: 02/07/18 09:49 Dose: 162 mg Digoxin (Lanoxin) 0.125 mg PO MWF [facility] Stop: 04/05/18 08:59 Last Admin: 02/06/18 09:25 Dose: 0.125 mg Divalproex Sodium (Depakote Dr) 250 mg PO Q12HR [facility] PRN Reason: Protocol Stop: 04/08/18 09:59 Last Admin: 02/07/18 10:37 Dose: 250 mg Docusate Sodium (Colace) 100 mg PO DAILY [facility] Stop: 04/03/18 08:59 Last Admin: 02/07/18 09:50 Dose: 100 mg Famotidine (Pepcid) 20 mg PO BID [facility] Stop: 04/03/18 08:59 Last Admin: 02/07/18 09:50 Dose: 20 mg Lorazepam (Ativan) 0.5 mg PO Q6H PRN; Protocol PRN Reason: Anxiety Stop: 04/03/18 02:36 Last Admin: 02/04/18 21:27 Dose: 0.5 mg Magnesium Hydroxide (Milk Of Magnesia) 30 ml PO DAILY PRN PRN Reason: Constipation Stop: 04/02/18 23:51 Metoprolol Tartrate (Lopressor) 25 mg PO BID [facility] Stop: 04/03/18 08:59 Last Admin: 02/07/18 09:51 Dose: 25 mg Mirtazapine (Remeron) 30 mg PO HS [facility] Stop: 04/03/18 20:59 Last Admin: 02/06/18 20:28 Dose: 30 mg Rivaroxaban (Xarelto) 10 mg PO DAILY [facility] Stop: 04/03/18 08:59 Last Admin: 02/07/18 09:50 Dose: 10 mg Sucralfate (Carafate) 1 gm PO ACHS [facility] Stop: 04/03/18 07:29 Last Admin: 02/06/18 20:29 Dose: 1 gm Zolpidem Tartrate (Ambien) 5 mg PO HS PRN PRN Reason: Insomnia Stop: 04/03/18 02:40 Last Admin: 02/05/18 21:06 Dose: 5 mg General: alert HEENT: NC/AT, PERRLA Neck: Supple Lungs: CTAB Cardiovascular: RRR, Normal S1, without murmur Neurological: no change Internal Medicine Assmt/Plan - Assessment Assessment: agitation htn dyslipidemia gerd dementia cirrohosis - Plan Plan: monitor bp fall precautions continue current plan of care Nutritional Asmnt/Malnutr-PDOC - Dietary Evaluation Malnutrition Findings (Please click <Entered> for more info): Nutritional Asmnt/Malnutrition Start: 02/06/18 13: 51 Text: Status: Active Freq: Document 02/06/18 13:51 MAN (Rec: 02/06/18 13:58 [email or web address] Nutritional Asmnt/Malnutrition Patient General Information Nutritional Screening Moderate Risk Diagnosis psychosis NOS Pertinent Medical Hx/Surgical Hx HTN, CVA, TIA, dyslipidemia, PAD, GERD, dementia, cirrhosis Subjective Information Per EMR, PO intake 100%. Pt has slureed speech, not able to communicate. Current Diet Order/ Nutrition Support mech soft chopped, ALEXANDER, boost TID Patient / S.O Can't verbalize diet edu Pertinent Medications colace, remeron Pertinent Labs 4/6 alb 3.4 Nutritional Hx/Data Height 5 ft 9 in Height (Calculated Centimeters) 175.3 Current Weight (lbs) 180 lb Weight (Calculated Kilograms) 81.6 Weight (Calculated Grams) 70394.6 [place] Body Weight 160 Body Mass Index (BMI) 26.6 Weight Status Overweight GI Symptoms GI Symptoms None Last BM 10 Difficult in: None Skin Integrity/Comment: scab on L arm, Open skin on R arm Current %PO Good (75-100%) Estimated Nutritional Goals Calories/Kcals/Kg 25-30 based on IBW 73kg Kcals Calculated 7907-0263 Protein g/k Protein Calculated 73 Fluid: ml 1825-2190ml (1ml/kcal) Nutritional Problem No current Nutrition Prob Problem N/A Malnutrition Alert Protein-Calorie Malnutrition N/A Is there a minimum of two criteria No selected? Query Text:Check all the applicable criteria. A minimum of two criteria are recommended for diagnosis of either severe or non-severe malnutrition. Intervention/Recommendation Comments 1. Continue with current diet as ordered. 2. Monitor PO intake, wt, labs and skin integrity 3. F/U as low risk in 7 days, 02/13 Expected Outcomes/Goals Expected Outcomes/Goals 1. PO intake to meet at least 75% of nutritional needs. 2. Wt stability, skin to remain intact, labs to approach WNL.
--- NOTE | 2018-02-07 23:46 | Progress Notes ---
DATE: 02/07/2018 SUBJECTIVE: Staff was spoken to. Patient is interviewed. Mood is irritable. Affect is constricted. The patient has been feeling depressed, isolative and withdrawn. Coping skills are noted to be poor. Sleep and appetite are noted to be improving. The patient is currently on the Remeron and has been able to tolerate the medications. In view of the impulsivity, the patient has been placed on the Depakote, which is given 125 mg twice a day since the patient has been still having a problem with the irritability and anger. It is decided to increase the dose on the medication to 250 mg twice a day. PLAN: Encouraged the patient to verbalize the concerns rather than to act out. PSYCHIATRIC# [id number]
[2018-02-08] MEDS: Aspirin 81mg Chewable Tab PO SCH (09:18)
[2018-02-08] MEDS: Multivitamin w/ Minerals Tab PO SCH (09:19)
--- NOTE | 2018-02-08 13:32 | Internal Medicine Prog Note ---
Internal Medicine Subjective - Subjective Service Date: 02/08/18 Patient is:: awake, confused Per staff patient has:: tolerating meds Internal Medicine Objective - Results Result Diagrams: 02/01/18 17:20 02/01/18 17:20 Recent Labs: Laboratory Last Values WBC 4.5 Th/cmm (4.8-10.8) L 02/01/18 17:20 RBC 4.93 Mil/cmm (3.80-5.80) 02/01/18 17:20 Hgb 14.7 gm/dL (12-16) 02/01/18 17:20 Hct 43.7 % (41.0-60) 02/01/18 17:20 MCV 88.6 fl (80-99) 02/01/18 17:20 MCH 29.7 pg (27.0-31.0) 02/01/18 17:20 MCHC Differential 33.6 pg (28.0-36.0) 02/01/18 17:20 RDW 13.9 % (11.5-20.0) 02/01/18 17:20 Plt Count 89 Th/cmm (150-400) L 02/01/18 17:20 MPV 8.0 fl 02/01/18 17:20 Neutrophils % 43.6 % (40.0-80.0) 02/01/18 17:20 Lymphocytes % 44.3 % (20.0-50.0) 02/01/18 17:20 Monocytes % 8.3 % (2.0-10.0) 02/01/18 17:20 Eosinophils % 2.9 % (0.0-5.0) 02/01/18 17:20 Basophils % 0.9 % (0.0-2.0) 02/01/18 17:20 Sodium 138 mEq/L (136-145) 02/01/18 17:20 Potassium 4.3 mEq/L (3.5-5.1) 02/01/18 17:20 Chloride 107 mEq/L (98-107) 02/01/18 17:20 Carbon Dioxide 25.6 mEq/L (21.0-31.0) 02/01/18 17:20 Anion Gap 9.7 (7.0-16.0) 02/01/18 17:20 BUN 17 mg/dL (7-25) 02/01/18 17:20 Creatinine 1.3 mg/dL (0.7-1.3) 02/01/18 17:20 Est GFR ( Amer) > 60.0 ml/min (>90) 02/01/18 17:20 Est GFR (Non-Af Amer) 58.9 ml/min 02/01/18 17:20 BUN/Creatinine Ratio 13.1 02/01/18 17:20 Glucose 89 mg/dL (70-105) 02/01/18 17:20 Hemoglobin A1c % 5.6 % (4.0-6.0) 02/01/18 17:20 Calcium 8.8 mg/dL (8.6-10.3) 02/01/18 17:20 Total Bilirubin 0.4 mg/dL (0.3-1.0) 02/01/18 17:20 AST 85 U/L (13-39) H 02/01/18 17:20 ALT 100 U/L (7-52) H 02/01/18 17:20 Alkaline Phosphatase 62 U/L (34-104) 02/01/18 17:20 Total Protein 6.9 gm/dL (6.0-8.3) 02/01/18 17:20 Albumin 3.4 gm/dL (4.2-5.5) L 02/01/18 17:20 Globulin 3.5 gm/dL 02/01/18 17:20 Albumin/Globulin Ratio 1.0 (1.0-1.8) 02/01/18 17:20 Triglycerides 114 mg/dL (<150) 02/01/18 17:20 Cholesterol 146 mg/dL (<200) 02/01/18 17:20 LDL Cholesterol Direct 103 mg/dL (75-193) 02/01/18 17:20 HDL Cholesterol 27 mg/dL (23-92) 02/01/18 17:20 TSH 6.79 uIU/ml (0.34-5.60) H 02/01/18 17:20 Salicylates < 25.0 mg/L (30.0-100.0) L 02/01/18 17:20 Acetaminophen < 10.0 ug/mL (10.0-30.0) L 02/01/18 17:20 Ethyl Alcohol < 10 mg/dL (0-10) 02/01/18 17:20 RPR NONREACTIVE (NONREACTIVE) 02/01/18 17:20 - Physical Exam Vitals and I&O: Vital Signs Temp 97.3 F 02/08/18 07:47 Pulse 57 02/08/18 09:19 Resp 20 02/08/18 07:47 BP 161/79 02/08/18 07:47 Pulse Ox 96 02/08/18 07:47 Intake & Output 02/07/18 02/08/18 02/08/18 18:59 06:59 18:59 Intake Total 1920 480 Balance 1920 480 Intake: Oral 1920 480 Other: # Voids 4 2 # Bowel Movements 0 0 Active Medications: Current Medications Acetaminophen (Tylenol) 650 mg PO Q4HR PRN PRN Reason: PAIN Stop: 04/02/18 23:51 Acetaminophen/Codeine Phosphate (Tylenol W/Codeine #3) 1 tab PO QID PRN PRN Reason: PAIN Stop: 04/02/18 23:51 Amiodarone HCl (Cordarone) 200 mg PO BID [facility] Stop: 04/03/18 08:59 Last Admin: 02/08/18 09:19 Dose: Not Given Aspirin (Aspirin Chewable) 162 mg PO DAILY [facility] Stop: 04/03/18 08:59 Last Admin: 02/08/18 09:18 Dose: 162 mg Digoxin (Lanoxin) 0.125 mg PO MWF [facility] Stop: 04/05/18 08:59 Last Admin: 02/08/18 09:18 Dose: Not Given Divalproex Sodium (Depakote Dr) 250 mg PO Q12HR [facility] PRN Reason: Protocol Stop: 04/08/18 09:59 Last Admin: 02/08/18 09:16 Dose: 250 mg Docusate Sodium (Colace) 100 mg PO DAILY [facility] Stop: 04/03/18 08:59 Last Admin: 02/08/18 09:19 Dose: 100 mg Famotidine (Pepcid) 20 mg PO BID [facility] Stop: 04/03/18 08:59 Last Admin: 02/08/18 09:17 Dose: 20 mg Lorazepam (Ativan) 0.5 mg PO Q6H PRN; Protocol PRN Reason: Anxiety Stop: 04/03/18 02:36 Last Admin: 02/07/18 20:29 Dose: 0.5 mg Magnesium Hydroxide (Milk Of Magnesia) 30 ml PO DAILY PRN PRN Reason: Constipation Stop: 04/02/18 23:51 Metoprolol Tartrate (Lopressor) 25 mg PO BID [facility] Stop: 04/03/18 08:59 Last Admin: 02/08/18 09:21 Dose: Not Given Mirtazapine (Remeron) 30 mg PO HS [facility] Stop: 04/03/18 20:59 Last Admin: 02/07/18 20:29 Dose: 30 mg Rivaroxaban (Xarelto) 10 mg PO DAILY [facility] Stop: 04/03/18 08:59 Last Admin: 02/08/18 09:20 Dose: 10 mg Sucralfate (Carafate) 1 gm PO ACHS [facility] Stop: 04/03/18 07:29 Last Admin: 02/08/18 13:32 Dose: 1 gm Zolpidem Tartrate (Ambien) 5 mg PO HS PRN PRN Reason: Insomnia Stop: 04/03/18 02:40 Last Admin: 02/07/18 21:09 Dose: 5 mg General: alert HEENT: NC/AT, PERRLA Neck: Supple Lungs: CTAB Cardiovascular: RRR, Normal S1, without murmur Neurological: no change Internal Medicine Assmt/Plan - Assessment Assessment: agitation htn dyslipidemia gerd dementia cirrohosis - Plan Plan: monitor bp fall precautions continue current plan of care Nutritional Asmnt/Malnutr-PDOC - Dietary Evaluation Malnutrition Findings (Please click <Entered> for more info): Nutritional Asmnt/Malnutrition Start: 02/06/18 13: 51 Text: Status: Active Freq: Document 02/06/18 13:51 [facility] (Rec: 02/06/18 13:58 [email or web address] Nutritional Asmnt/Malnutrition Patient General Information Nutritional Screening Moderate Risk Diagnosis psychosis NOS Pertinent Medical Hx/Surgical Hx HTN, CVA, TIA, dyslipidemia, PAD, GERD, dementia, cirrhosis Subjective Information Per EMR, PO intake 100%. Pt has slureed speech, not able to communicate. Current Diet Order/ Nutrition Support mech soft chopped, ALEXANDER, boost TID Patient / S.O Can't verbalize diet edu Pertinent Medications colace, remeron Pertinent Labs 4/6 alb 3.4 Nutritional Hx/Data Height 5 ft 9 in Height (Calculated Centimeters) 175.3 Current Weight (lbs) 180 lb Weight (Calculated Kilograms) 81.6 Weight (Calculated Grams) 34124.6 [place] Body Weight 160 Body Mass Index (BMI) 26.6 Weight Status Overweight GI Symptoms GI Symptoms None Last BM 4/10 Difficult in: None Skin Integrity/Comment: scab on L arm, Open skin on R arm Current %PO Good (75-100%) Estimated Nutritional Goals Calories/Kcals/Kg 25-30 based on IBW 73kg Kcals Calculated 2335-3782 Protein g/k Protein Calculated 73 Fluid: ml 1825-2190ml (1ml/kcal) Nutritional Problem No current Nutrition Prob Problem N/A Malnutrition Alert Protein-Calorie Malnutrition N/A Is there a minimum of two criteria No selected? Query Text:Check all the applicable criteria. A minimum of two criteria are recommended for diagnosis of either severe or non-severe malnutrition. Intervention/Recommendation Comments 1. Continue with current diet as ordered. 2. Monitor PO intake, wt, labs and skin integrity 3. F/U as low risk in 7 days, 02/13 Expected Outcomes/Goals Expected Outcomes/Goals 1. PO intake to meet at least 75% of nutritional needs. 2. Wt stability, skin to remain intact, labs to approach WNL.
--- NOTE | 2018-02-09 01:44 | Progress Notes ---
DATE: 02/08/2018 SUBJECTIVE: Staff was spoken to. The patient is interviewed. Mood is noted to be irritable. Affect is constricted. The patient has been getting frustrated easily. Coping skills are noted to be very poor. Sleep is noted to be improving. Appetite is noted to be fair at this time. The patient has been currently maintained on 30 mg of the mirtazapine for his depression and sleep and is also getting the dye valproic acid, which was increased at 250 mg twice a day for his impulsivity. The patient is going to be closely monitored with the medications and followed up. JOB# [id number]
[2018-02-09] MEDS: Aspirin 81mg Chewable Tab PO SCH (09:44)
[2018-02-09] MEDS: Multivitamin w/ Minerals Tab PO SCH (09:45)
--- NOTE | 2018-02-09 18:42 | Internal Medicine Prog Note ---
Internal Medicine Subjective - Subjective Patient seen and examined:: with staff, chart reviewed Patient is:: awake, verbal, interactive, confused Patient Complaints of:: congestion Per staff patient has:: no adverse event, poor oral intake, tolerating meds Internal Medicine Objective - Results Result Diagrams: 02/01/18 17:20 02/01/18 17:20 Recent Labs: Laboratory Last Values WBC 4.5 Th/cmm (4.8-10.8) L 02/01/18 17:20 RBC 4.93 Mil/cmm (3.80-5.80) 02/01/18 17:20 Hgb 14.7 gm/dL (12-16) 02/01/18 17:20 Hct 43.7 % (41.0-60) 02/01/18 17:20 MCV 88.6 fl (80-99) 02/01/18 17:20 MCH 29.7 pg (27.0-31.0) 02/01/18 17:20 MCHC Differential 33.6 pg (28.0-36.0) 02/01/18 17:20 RDW 13.9 % (11.5-20.0) 02/01/18 17:20 Plt Count 89 Th/cmm (150-400) L 02/01/18 17:20 MPV 8.0 fl 02/01/18 17:20 Neutrophils % 43.6 % (40.0-80.0) 02/01/18 17:20 Lymphocytes % 44.3 % (20.0-50.0) 02/01/18 17:20 Monocytes % 8.3 % (2.0-10.0) 02/01/18 17:20 Eosinophils % 2.9 % (0.0-5.0) 02/01/18 17:20 Basophils % 0.9 % (0.0-2.0) 02/01/18 17:20 Sodium 138 mEq/L (136-145) 02/01/18 17:20 Potassium 4.3 mEq/L (3.5-5.1) 02/01/18 17:20 Chloride 107 mEq/L (98-107) 02/01/18 17:20 Carbon Dioxide 25.6 mEq/L (21.0-31.0) 02/01/18 17:20 Anion Gap 9.7 (7.0-16.0) 02/01/18 17:20 BUN 17 mg/dL (7-25) 02/01/18 17:20 Creatinine 1.3 mg/dL (0.7-1.3) 02/01/18 17:20 Est GFR ( Amer) > 60.0 ml/min (>90) 02/01/18 17:20 Est GFR (Non-Af Amer) 58.9 ml/min 02/01/18 17:20 BUN/Creatinine Ratio 13.1 02/01/18 17:20 Glucose 89 mg/dL (70-105) 02/01/18 17:20 Hemoglobin A1c % 5.6 % (4.0-6.0) 02/01/18 17:20 Calcium 8.8 mg/dL (8.6-10.3) 02/01/18 17:20 Total Bilirubin 0.4 mg/dL (0.3-1.0) 02/01/18 17:20 AST 85 U/L (13-39) H 02/01/18 17:20 ALT 100 U/L (7-52) H 02/01/18 17:20 Alkaline Phosphatase 62 U/L (34-104) 02/01/18 17:20 Total Protein 6.9 gm/dL (6.0-8.3) 02/01/18 17:20 Albumin 3.4 gm/dL (4.2-5.5) L 02/01/18 17:20 Globulin 3.5 gm/dL 02/01/18 17:20 Albumin/Globulin Ratio 1.0 (1.0-1.8) 02/01/18 17:20 Triglycerides 114 mg/dL (<150) 02/01/18 17:20 Cholesterol 146 mg/dL (<200) 02/01/18 17:20 LDL Cholesterol Direct 103 mg/dL (75-193) 02/01/18 17:20 HDL Cholesterol 27 mg/dL (23-92) 02/01/18 17:20 TSH 6.79 uIU/ml (0.34-5.60) H 02/01/18 17:20 Salicylates < 25.0 mg/L (30.0-100.0) L 02/01/18 17:20 Acetaminophen < 10.0 ug/mL (10.0-30.0) L 02/01/18 17:20 Ethyl Alcohol < 10 mg/dL (0-10) 02/01/18 17:20 RPR NONREACTIVE (NONREACTIVE) 02/01/18 17:20 - Physical Exam Vitals and I&O: Vital Signs Temp 97.0 F 02/09/18 06:23 Pulse 59 02/09/18 16:02 Resp 18 02/09/18 06:23 BP 113/58 02/09/18 16:01 Pulse Ox 94 02/09/18 06:23 Intake & Output 02/08/18 02/09/18 02/09/18 18:59 06:59 18:59 Intake Total 1000 240 Balance 1000 240 Intake: Oral 1000 240 Other: # Voids 3 1 # Bowel Movements 0 Active Medications: Current Medications Acetaminophen (Tylenol) 650 mg PO Q4HR PRN PRN Reason: PAIN Stop: 04/02/18 23:51 Acetaminophen/Codeine Phosphate (Tylenol W/Codeine #3) 1 tab PO QID PRN PRN Reason: PAIN Stop: 04/02/18 23:51 Amiodarone HCl (Cordarone) 200 mg PO BID [facility] Stop: 04/03/18 08:59 Last Admin: 02/09/18 16:02 Dose: Not Given Aspirin (Aspirin Chewable) 162 mg PO DAILY [facility] Stop: 04/03/18 08:59 Last Admin: 02/09/18 09:44 Dose: 162 mg Digoxin (Lanoxin) 0.125 mg PO MWF [facility] Stop: 04/05/18 08:59 Last Admin: 02/08/18 09:18 Dose: Not Given Divalproex Sodium (Depakote Dr) 250 mg PO Q12HR [facility] PRN Reason: Protocol Stop: 04/08/18 09:59 Last Admin: 02/09/18 09:45 Dose: 250 mg Docusate Sodium (Colace) 100 mg PO DAILY [facility] Stop: 04/03/18 08:59 Last Admin: 02/09/18 09:45 Dose: 100 mg Famotidine (Pepcid) 20 mg PO BID [facility] Stop: 04/03/18 08:59 Last Admin: 02/09/18 16:07 Dose: 20 mg Lorazepam (Ativan) 0.5 mg PO Q6H PRN; Protocol PRN Reason: Anxiety Stop: 04/03/18 02:36 Last Admin: 02/08/18 20:41 Dose: 0.5 mg Magnesium Hydroxide (Milk Of Magnesia) 30 ml PO DAILY PRN PRN Reason: Constipation Stop: 04/02/18 23:51 Metoprolol Tartrate (Lopressor) 25 mg PO BID [facility] Stop: 04/03/18 08:59 Last Admin: 02/09/18 16:01 Dose: Not Given Mirtazapine (Remeron) 30 mg PO HS [facility] Stop: 04/03/18 20:59 Last Admin: 02/08/18 20:41 Dose: 30 mg Mupirocin (Bactroban Oint) 1 appl NS BID [facility] Stop: 02/13/18 17:01 Last Admin: 02/09/18 16:01 Dose: 1 appl Rivaroxaban (Xarelto) 10 mg PO DAILY [facility] Stop: 04/03/18 08:59 Last Admin: 02/09/18 09:45 Dose: 10 mg Sucralfate (Carafate) 1 gm PO ACHS [facility] Stop: 04/03/18 07:29 Last Admin: 02/09/18 15:33 Dose: 1 gm Zolpidem Tartrate (Ambien) 5 mg PO HS PRN PRN Reason: Insomnia Stop: 04/03/18 02:40 Last Admin: 02/08/18 20:41 Dose: 5 mg General: demented HEENT: NC/AT, PERRLA Neck: Supple Lungs: CTAB Cardiovascular: RRR, Normal S1, without murmur Extremities: excoriation Neurological: no change Internal Medicine Assmt/Plan - Assessment Assessment: - Assessment Assessment: agitation htn dyslipidemia gerd dementia cirrohosis - Plan Plan: monitor bp fall precautions continue current plan of care - Plan Plan: claus torrez Nutritional Asmnt/Malnutr-PDOC - Dietary Evaluation Malnutrition Findings (Please click <Entered> for more info): Nutritional Asmnt/Malnutrition Start: 02/06/18 13: 51 Text: Status: Active Freq: Document 02/06/18 13:51 [facility] (Rec: 02/06/18 13:58 [email or web address]) Nutritional Asmnt/Malnutrition Patient General Information Nutritional Screening Moderate Risk Diagnosis psychosis NOS Pertinent Medical Hx/Surgical Hx HTN, CVA, TIA, dyslipidemia, PAD, GERD, dementia, cirrhosis Subjective Information Per EMR, PO intake 100%. Pt has slureed speech, not able to communicate. Current Diet Order/ Nutrition Support mech soft chopped, ALEXANDER, boost TID Patient / S.O Can't verbalize diet edu Pertinent Medications colace, remeron Pertinent Labs 02/01 alb 3.4 Nutritional Hx/Data Height 1.75 m Height (Calculated Centimeters) 175.3 Current Weight (lbs) 81.647 kg Weight (Calculated Kilograms) 81.6 Weight (Calculated Grams) 40943.6 [place] Body Weight 160 Body Mass Index (BMI) 26.6 Weight Status Overweight GI Symptoms GI Symptoms None Last BM 02/05 Difficult in: None Skin Integrity/Comment: scab on L arm, Open skin on R arm Current %PO Good (75-100%) Estimated Nutritional Goals Calories/Kcals/Kg 25-30 based on IBW 73kg Kcals Calculated 2788-3068 Protein g/k Protein Calculated 73 Fluid: ml 1825-2190ml (1ml/kcal) Nutritional Problem No current Nutrition Prob Problem N/A Malnutrition Alert Protein-Calorie Malnutrition N/A Is there a minimum of two criteria No selected? Query Text:Check all the applicable criteria. A minimum of two criteria are recommended for diagnosis of either severe or non-severe malnutrition. Intervention/Recommendation Comments 1. Continue with current diet as ordered. 2. Monitor PO intake, wt, labs and skin integrity 3. F/U as low risk in 7 days, 02/13 Expected Outcomes/Goals Expected Outcomes/Goals 1. PO intake to meet at least 75% of nutritional needs. 2. Wt stability, skin to remain intact, labs to approach WNL.
--- NOTE | 2018-02-09 20:33 | Progress Notes ---
DATE: 02/09/2018 SUBJECTIVE: Staff was spoken to. The patient is interviewed. Mood is noted be less irritable. Affect is appropriate. Coping skills are noted to be improving. No side effects to the medications are noted. The patient has been having difficult time to cope with the stress. The patient is reporting that he has been frustrated that he is not able to open up and then express his thoughts well. No aggressive behavior is reported at this time. The patient has been able to tolerate the medication. PLAN: To continue this patient on the current medications and follow the patient with the supportive therapy. JOB# [id number]
[2018-02-10] MEDS: Aspirin 81mg Chewable Tab PO SCH (10:00)
[2018-02-10] MEDS: Multivitamin w/ Minerals Tab PO SCH (10:00)
--- NOTE | 2018-02-10 13:52 | Internal Medicine Prog Note ---
Internal Medicine Subjective - Subjective Patient seen and examined:: with staff, chart reviewed Patient is:: awake, verbal, interactive, confused Patient Complaints of:: congestion Per staff patient has:: no adverse event, poor oral intake, tolerating meds Internal Medicine Objective - Results Result Diagrams: 02/01/18 17:20 02/01/18 17:20 Recent Labs: Laboratory Last Values WBC 4.5 Th/cmm (4.8-10.8) L 02/01/18 17:20 RBC 4.93 Mil/cmm (3.80-5.80) 02/01/18 17:20 Hgb 14.7 gm/dL (12-16) 02/01/18 17:20 Hct 43.7 % (41.0-60) 02/01/18 17:20 MCV 88.6 fl (80-99) 02/01/18 17:20 MCH 29.7 pg (27.0-31.0) 02/01/18 17:20 MCHC Differential 33.6 pg (28.0-36.0) 02/01/18 17:20 RDW 13.9 % (11.5-20.0) 02/01/18 17:20 Plt Count 89 Th/cmm (150-400) L 02/01/18 17:20 MPV 8.0 fl 02/01/18 17:20 Neutrophils % 43.6 % (40.0-80.0) 02/01/18 17:20 Lymphocytes % 44.3 % (20.0-50.0) 02/01/18 17:20 Monocytes % 8.3 % (2.0-10.0) 02/01/18 17:20 Eosinophils % 2.9 % (0.0-5.0) 02/01/18 17:20 Basophils % 0.9 % (0.0-2.0) 02/01/18 17:20 Sodium 138 mEq/L (136-145) 02/01/18 17:20 Potassium 4.3 mEq/L (3.5-5.1) 02/01/18 17:20 Chloride 107 mEq/L (98-107) 02/01/18 17:20 Carbon Dioxide 25.6 mEq/L (21.0-31.0) 02/01/18 17:20 Anion Gap 9.7 (7.0-16.0) 02/01/18 17:20 BUN 17 mg/dL (7-25) 02/01/18 17:20 Creatinine 1.3 mg/dL (0.7-1.3) 02/01/18 17:20 Est GFR ( Amer) > 60.0 ml/min (>90) 02/01/18 17:20 Est GFR (Non-Af Amer) 58.9 ml/min 02/01/18 17:20 BUN/Creatinine Ratio 13.1 02/01/18 17:20 Glucose 89 mg/dL (70-105) 02/01/18 17:20 Hemoglobin A1c % 5.6 % (4.0-6.0) 02/01/18 17:20 Calcium 8.8 mg/dL (8.6-10.3) 02/01/18 17:20 Total Bilirubin 0.4 mg/dL (0.3-1.0) 02/01/18 17:20 AST 85 U/L (13-39) H 02/01/18 17:20 ALT 100 U/L (7-52) H 02/01/18 17:20 Alkaline Phosphatase 62 U/L (34-104) 02/01/18 17:20 Total Protein 6.9 gm/dL (6.0-8.3) 02/01/18 17:20 Albumin 3.4 gm/dL (4.2-5.5) L 02/01/18 17:20 Globulin 3.5 gm/dL 02/01/18 17:20 Albumin/Globulin Ratio 1.0 (1.0-1.8) 02/01/18 17:20 Triglycerides 114 mg/dL (<150) 02/01/18 17:20 Cholesterol 146 mg/dL (<200) 02/01/18 17:20 LDL Cholesterol Direct 103 mg/dL (75-193) 02/01/18 17:20 HDL Cholesterol 27 mg/dL (23-92) 02/01/18 17:20 TSH 6.79 uIU/ml (0.34-5.60) H 02/01/18 17:20 Salicylates < 25.0 mg/L (30.0-100.0) L 02/01/18 17:20 Acetaminophen < 10.0 ug/mL (10.0-30.0) L 02/01/18 17:20 Ethyl Alcohol < 10 mg/dL (0-10) 02/01/18 17:20 RPR NONREACTIVE (NONREACTIVE) 02/01/18 17:20 - Physical Exam Vitals and I&O: Vital Signs Temp 97.8 F 02/10/18 06:52 Pulse 59 02/10/18 10:00 Resp 20 02/10/18 06:52 BP 119/60 02/10/18 10:00 Pulse Ox 97 02/10/18 06:52 Intake & Output 02/09/18 02/10/18 02/10/18 18:59 06:59 18:59 Intake Total 360 Balance 360 Intake: Oral 360 Other: # Voids 1 Active Medications: Current Medications Acetaminophen (Tylenol) 650 mg PO Q4HR PRN PRN Reason: PAIN Stop: 04/02/18 23:51 Acetaminophen/Codeine Phosphate (Tylenol W/Codeine #3) 1 tab PO QID PRN PRN Reason: PAIN Stop: 04/02/18 23:51 Amiodarone HCl (Cordarone) 200 mg PO BID [facility] Stop: 04/03/18 08:59 Last Admin: 02/10/18 10:00 Dose: Not Given Aspirin (Aspirin Chewable) 162 mg PO DAILY [facility] Stop: 04/03/18 08:59 Last Admin: 02/10/18 10:00 Dose: 162 mg Digoxin (Lanoxin) 0.125 mg PO MWF [facility] Stop: 04/05/18 08:59 Last Admin: 02/08/18 09:18 Dose: Not Given Divalproex Sodium (Depakote Dr) 250 mg PO Q12HR [facility] PRN Reason: Protocol Stop: 04/08/18 09:59 Last Admin: 02/10/18 09:59 Dose: 250 mg Docusate Sodium (Colace) 100 mg PO DAILY [facility] Stop: 04/03/18 08:59 Last Admin: 02/10/18 10:00 Dose: 100 mg Famotidine (Pepcid) 20 mg PO BID [facility] Stop: 04/03/18 08:59 Last Admin: 02/10/18 10:00 Dose: 20 mg Lorazepam (Ativan) 0.5 mg PO Q6H PRN; Protocol PRN Reason: Anxiety Stop: 04/03/18 02:36 Last Admin: 02/09/18 20:19 Dose: 0.5 mg Magnesium Hydroxide (Milk Of Magnesia) 30 ml PO DAILY PRN PRN Reason: Constipation Stop: 04/02/18 23:51 Metoprolol Tartrate (Lopressor) 25 mg PO BID [facility] Stop: 04/03/18 08:59 Last Admin: 02/10/18 10:00 Dose: Not Given Mirtazapine (Remeron) 30 mg PO HS [facility] Stop: 04/03/18 20:59 Last Admin: 02/09/18 20:19 Dose: 30 mg Mupirocin (Bactroban Oint) 1 appl NS BID [facility] Stop: 02/13/18 17:01 Last Admin: 02/10/18 10:00 Dose: 1 appl Rivaroxaban (Xarelto) 10 mg PO DAILY [facility] Stop: 04/03/18 08:59 Last Admin: 02/10/18 09:59 Dose: 10 mg Sucralfate (Carafate) 1 gm PO ACHS [facility] Stop: 04/03/18 07:29 Last Admin: 02/10/18 11:46 Dose: 1 gm Zolpidem Tartrate (Ambien) 5 mg PO HS PRN PRN Reason: Insomnia Stop: 04/03/18 02:40 Last Admin: 02/09/18 20:19 Dose: 5 mg General: demented HEENT: NC/AT, PERRLA Neck: Supple Lungs: CTAB Cardiovascular: RRR, Normal S1, without murmur Extremities: excoriation Neurological: no change Internal Medicine Assmt/Plan - Assessment Assessment: - Assessment Assessment: agitation htn dyslipidemia gerd dementia cirrohosis - Plan Plan: monitor bp fall precautions continue current plan of care - Plan Plan: claus torrez Nutritional Asmnt/Malnutr-PDOC - Dietary Evaluation Malnutrition Findings (Please click <Entered> for more info): Nutritional Asmnt/Malnutrition Start: 02/06/18 13: 51 Text: Status: Active Freq: Document 02/06/18 13:51 [facility] (Rec: 02/06/18 13:58 [email or web address]) Nutritional Asmnt/Malnutrition Patient General Information Nutritional Screening Moderate Risk Diagnosis psychosis NOS Pertinent Medical Hx/Surgical Hx HTN, CVA, TIA, dyslipidemia, PAD, GERD, dementia, cirrhosis Subjective Information Per EMR, PO intake 100%. Pt has slureed speech, not able to communicate. Current Diet Order/ Nutrition Support mech soft chopped, ALEXANDER, boost TID Patient / S.O Can't verbalize diet edu Pertinent Medications colace, remeron Pertinent Labs 02/01 alb 3.4 Nutritional Hx/Data Height 1.75 m Height (Calculated Centimeters) 175.3 Current Weight (lbs) 81.647 kg Weight (Calculated Kilograms) 81.6 Weight (Calculated Grams) 10789.6 [place] Body Weight 160 Body Mass Index (BMI) 26.6 Weight Status Overweight GI Symptoms GI Symptoms None Last BM 02/05 Difficult in: None Skin Integrity/Comment: scab on L arm, Open skin on R arm Current %PO Good (75-100%) Estimated Nutritional Goals Calories/Kcals/Kg 25-30 based on IBW 73kg Kcals Calculated 6353-6882 Protein g/k Protein Calculated 73 Fluid: ml 1825-2190ml (1ml/kcal) Nutritional Problem No current Nutrition Prob Problem N/A Malnutrition Alert Protein-Calorie Malnutrition N/A Is there a minimum of two criteria No selected? Query Text:Check all the applicable criteria. A minimum of two criteria are recommended for diagnosis of either severe or non-severe malnutrition. Intervention/Recommendation Comments 1. Continue with current diet as ordered. 2. Monitor PO intake, wt, labs and skin integrity 3. F/U as low risk in 7 days, 02/13 Expected Outcomes/Goals Expected Outcomes/Goals 1. PO intake to meet at least 75% of nutritional needs. 2. Wt stability, skin to remain intact, labs to approach WNL.
--- NOTE | 2018-02-11 04:22 | Progress Notes ---
DATE: 02/10/2018 SUBJECTIVE: Staff was spoken to. The patient is interviewed and was noted to be irritable. Affect is constricted. The patient is reporting that he has good sleep and appetite is also noted to be improving. The patient is currently on 250 mg of valproic acid and has been able to tolerate medications. No side effects to the medications are noted. The patient's coping skills are noted to be improving at this time. ASSESSMENT: The patient's mood swings are coming under control. PLAN: To continue the patient with supportive therapy and followup. JOB# [id number]
[2018-02-11] MEDS: Multivitamin w/ Minerals Tab PO SCH (09:23)
[2018-02-11] MEDS: Aspirin 81mg Chewable Tab PO SCH (09:42)
--- NOTE | 2018-02-11 10:57 | Internal Medicine Prog Note ---
Internal Medicine Subjective - Subjective Service Date: 02/11/18 Patient is:: awake, verbal, interactive, confused Patient Complaints of:: congestion Per staff patient has:: no adverse event, poor oral intake, tolerating meds Internal Medicine Objective - Results Result Diagrams: 02/01/18 17:20 02/01/18 17:20 Recent Labs: Laboratory Last Values WBC 4.5 Th/cmm (4.8-10.8) L 02/01/18 17:20 RBC 4.93 Mil/cmm (3.80-5.80) 02/01/18 17:20 Hgb 14.7 gm/dL (12-16) 02/01/18 17:20 Hct 43.7 % (41.0-60) 02/01/18 17:20 MCV 88.6 fl (80-99) 02/01/18 17:20 MCH 29.7 pg (27.0-31.0) 02/01/18 17:20 MCHC Differential 33.6 pg (28.0-36.0) 02/01/18 17:20 RDW 13.9 % (11.5-20.0) 02/01/18 17:20 Plt Count 89 Th/cmm (150-400) L 02/01/18 17:20 MPV 8.0 fl 02/01/18 17:20 Neutrophils % 43.6 % (40.0-80.0) 02/01/18 17:20 Lymphocytes % 44.3 % (20.0-50.0) 02/01/18 17:20 Monocytes % 8.3 % (2.0-10.0) 02/01/18 17:20 Eosinophils % 2.9 % (0.0-5.0) 02/01/18 17:20 Basophils % 0.9 % (0.0-2.0) 02/01/18 17:20 Sodium 138 mEq/L (136-145) 02/01/18 17:20 Potassium 4.3 mEq/L (3.5-5.1) 02/01/18 17:20 Chloride 107 mEq/L (98-107) 02/01/18 17:20 Carbon Dioxide 25.6 mEq/L (21.0-31.0) 02/01/18 17:20 Anion Gap 9.7 (7.0-16.0) 02/01/18 17:20 BUN 17 mg/dL (7-25) 02/01/18 17:20 Creatinine 1.3 mg/dL (0.7-1.3) 02/01/18 17:20 Est GFR ( Amer) > 60.0 ml/min (>90) 02/01/18 17:20 Est GFR (Non-Af Amer) 58.9 ml/min 02/01/18 17:20 BUN/Creatinine Ratio 13.1 02/01/18 17:20 Glucose 89 mg/dL (70-105) 02/01/18 17:20 Hemoglobin A1c % 5.6 % (4.0-6.0) 02/01/18 17:20 Calcium 8.8 mg/dL (8.6-10.3) 02/01/18 17:20 Total Bilirubin 0.4 mg/dL (0.3-1.0) 02/01/18 17:20 AST 85 U/L (13-39) H 02/01/18 17:20 ALT 100 U/L (7-52) H 02/01/18 17:20 Alkaline Phosphatase 62 U/L (34-104) 02/01/18 17:20 Total Protein 6.9 gm/dL (6.0-8.3) 02/01/18 17:20 Albumin 3.4 gm/dL (4.2-5.5) L 02/01/18 17:20 Globulin 3.5 gm/dL 02/01/18 17:20 Albumin/Globulin Ratio 1.0 (1.0-1.8) 02/01/18 17:20 Triglycerides 114 mg/dL (<150) 02/01/18 17:20 Cholesterol 146 mg/dL (<200) 02/01/18 17:20 LDL Cholesterol Direct 103 mg/dL (75-193) 02/01/18 17:20 HDL Cholesterol 27 mg/dL (23-92) 02/01/18 17:20 TSH 6.79 uIU/ml (0.34-5.60) H 02/01/18 17:20 Salicylates < 25.0 mg/L (30.0-100.0) L 02/01/18 17:20 Acetaminophen < 10.0 ug/mL (10.0-30.0) L 02/01/18 17:20 Ethyl Alcohol < 10 mg/dL (0-10) 02/01/18 17:20 RPR NONREACTIVE (NONREACTIVE) 02/01/18 17:20 - Physical Exam Vitals and I&O: Vital Signs Temp 97.9 F 02/11/18 06:57 Pulse 62 02/11/18 09:25 Resp 20 02/11/18 06:57 BP 120/65 02/11/18 09:24 Pulse Ox 97 02/11/18 06:57 Intake & Output 02/10/18 02/11/18 02/11/18 18:59 06:59 18:59 Intake Total 950 120 Balance 950 120 Intake: Oral 950 120 Other: # Voids 4 3 # Bowel Movements 0 1 Active Medications: Current Medications Acetaminophen (Tylenol) 650 mg PO Q4HR PRN PRN Reason: PAIN Stop: 04/02/18 23:51 Acetaminophen/Codeine Phosphate (Tylenol W/Codeine #3) 1 tab PO QID PRN PRN Reason: PAIN Stop: 04/02/18 23:51 Amiodarone HCl (Cordarone) 200 mg PO BID [facility] Stop: 04/03/18 08:59 Last Admin: 02/11/18 09:24 Dose: 200 mg Aspirin (Aspirin Chewable) 162 mg PO DAILY [facility] Stop: 04/03/18 08:59 Last Admin: 02/11/18 09:42 Dose: 162 mg Digoxin (Lanoxin) 0.125 mg PO MWF [facility] Stop: 04/05/18 08:59 Last Admin: 02/11/18 09:25 Dose: 0.125 mg Divalproex Sodium (Depakote Dr) 250 mg PO Q12HR [facility] PRN Reason: Protocol Stop: 04/08/18 09:59 Last Admin: 02/11/18 09:23 Dose: 250 mg Docusate Sodium (Colace) 100 mg PO DAILY [facility] Stop: 04/03/18 08:59 Last Admin: 02/11/18 09:23 Dose: 100 mg Famotidine (Pepcid) 20 mg PO BID [facility] Stop: 04/03/18 08:59 Last Admin: 02/11/18 09:22 Dose: 20 mg Lorazepam (Ativan) 0.5 mg PO Q6H PRN; Protocol PRN Reason: Anxiety Stop: 04/03/18 02:36 Last Admin: 02/09/18 20:19 Dose: 0.5 mg Magnesium Hydroxide (Milk Of Magnesia) 30 ml PO DAILY PRN PRN Reason: Constipation Stop: 04/02/18 23:51 Metoprolol Tartrate (Lopressor) 25 mg PO BID [facility] Stop: 04/03/18 08:59 Last Admin: 02/11/18 09:24 Dose: 25 mg Mirtazapine (Remeron) 30 mg PO HS [facility] Stop: 04/03/18 20:59 Last Admin: 02/10/18 20:25 Dose: 30 mg Mupirocin (Bactroban Oint) 1 appl NS BID [facility] Stop: 02/13/18 17:01 Last Admin: 02/11/18 09:42 Dose: 1 appl Rivaroxaban (Xarelto) 10 mg PO DAILY [facility] Stop: 04/03/18 08:59 Last Admin: 02/10/18 09:59 Dose: 10 mg Sucralfate (Carafate) 1 gm PO ACHS [facility] Stop: 04/03/18 07:29 Last Admin: 02/11/18 06:42 Dose: 1 gm Zolpidem Tartrate (Ambien) 5 mg PO HS PRN PRN Reason: Insomnia Stop: 04/03/18 02:40 Last Admin: 02/09/18 20:19 Dose: 5 mg General: demented HEENT: NC/AT, PERRLA Neck: Supple Lungs: CTAB Cardiovascular: RRR, Normal S1, without murmur Extremities: excoriation Neurological: no change Internal Medicine Assmt/Plan - Assessment Assessment: agitation htn dyslipidemia gerd dementia cirrohosis - Plan Plan: monitor bp fall precautions continue current plan of care Nutritional Asmnt/Malnutr-PDOC - Dietary Evaluation Malnutrition Findings (Please click <Entered> for more info): Nutritional Asmnt/Malnutrition Start: 02/06/18 13: 51 Text: Status: Active Freq: Document 02/06/18 13:51 LILIANA (Rec: 02/06/18 13:58 LILIANA [id number]) Nutritional Asmnt/Malnutrition Patient General Information Nutritional Screening Moderate Risk Diagnosis psychosis NOS Pertinent Medical Hx/Surgical Hx HTN, CVA, TIA, dyslipidemia, PAD, GERD, dementia, cirrhosis Subjective Information Per EMR, PO intake 100%. Pt has slureed speech, not able to communicate. Current Diet Order/ Nutrition Support mech soft chopped, ALEXANDER, boost TID Patient / S.O Can't verbalize diet edu Pertinent Medications colace, remeron Pertinent Labs 02/01 alb 3.4 Nutritional Hx/Data Height 5 ft 9 in Height (Calculated Centimeters) 175.3 Current Weight (lbs) 180 lb Weight (Calculated Kilograms) 81.6 Weight (Calculated Grams) 14209.6 [place] Body Weight 160 Body Mass Index (BMI) 26.6 Weight Status Overweight GI Symptoms GI Symptoms None Last BM 10 Difficult in: None Skin Integrity/Comment: scab on L arm, Open skin on R arm Current %PO Good (75-100%) Estimated Nutritional Goals Calories/Kcals/Kg 25-30 based on IBW 73kg Kcals Calculated 1727-5063 Protein g/k Protein Calculated 73 Fluid: ml 1825-2190ml (1ml/kcal) Nutritional Problem No current Nutrition Prob Problem N/A Malnutrition Alert Protein-Calorie Malnutrition N/A Is there a minimum of two criteria No selected? Query Text:Check all the applicable criteria. A minimum of two criteria are recommended for diagnosis of either severe or non-severe malnutrition. Intervention/Recommendation Comments 1. Continue with current diet as ordered. 2. Monitor PO intake, wt, labs and skin integrity 3. F/U as low risk in 7 days, 02/13 Expected Outcomes/Goals Expected Outcomes/Goals 1. PO intake to meet at least 75% of nutritional needs. 2. Wt stability, skin to remain intact, labs to approach WNL.
[2018-02-11 11:44] LABS: % BASOPHILS 2.1 % (0.0-2.0); % EOSINOPHILS 3.1 % (0.0-5.0); % MONOCYTES 7.5 % (2.0-10.0); % NEUTROPHILS 37.3 % (40.0-80.0); BASOPHILE ABSOLUTE 0.1 Th/cumm (0-0.2); EOSINOPHILE ABSOLUTE 0.1 Th/cmm (0.1-0.4); HEMATOCRIT 39.9 % (41.0-60); HEMOGLOBIN 13.2 gm/dL (12-16); LYMPHOCYTE ABSOLUTE 1.7 Th/cmm (1.5-3.0); MEAN CELL VOLUME 89.4 fl (80-99); MEAN CORPUSCULAR HEMOGLOBIN 29.6 pg (27.0-31.0); MEAN CORPUSCULAR HGB CONC 33.1 pg (28.0-36.0); MEAN PLATELET VOLUME 8.5 fl; MONOCYTE ABSOLUTE 0.2 Th/cmm (0.3-1.0); NEUTROPHILE ABSOLUTE 1.2 Th/cmm (1.8-8.0); PLATELET COUNT 69 Th/cmm (150-400); RED BLOOD COUNT 4.46 Mil/cmm (3.80-5.80)
[2018-02-11 11:55] LABS: WHITE BLOOD COUNT 3.3 Th/cmm (4.8-10.8)
--- NOTE | 2018-02-12 02:31 | Progress Notes ---
DATE: 02/11/2018 SUBJECTIVE: Staff was spoken to. The patient is interviewed. Mood is noted to be anxious. The patient's insight and judgment are improving. Impulse control is noted to be fair. No side effects to the medications are noted. The patient has been able to verbalize the concerns rather than to act out. ASSESSMENT: The patient is stabilizing. PLAN: To discharge the patient today for followup on an outpatient basis. JOB# [id number]
== END 2018-02-11 21:25 | DRG 885 ==
LOC: ER 16:32 → GERO 19:00
PROVIDERS: ADMIT Psychiatry & Neurology Psychiatry; ATTEND Psychiatry & Neurology Psychiatry
DX: F33.9 Major depressive disorder, recurrent, unspecified (principal); F03.91 Unspecified dementia, unspecified severity, with behavioral disturbance; I10 Essential (primary) hypertension; E78.5 Hyperlipidemia, unspecified; K21.9 Gastro-esophageal reflux disease without esophagitis; K74.60 Unspecified cirrhosis of liver; F29 Unspecified psychosis not due to a substance or known physiological condition; I73.9 Peripheral vascular disease, unspecified; G47.00 Insomnia, unspecified; Z86.73 Personal history of transient ischemic attack (TIA), and cerebral infarction without residual deficits; Z88.0 Allergy status to penicillin; Z88.8 Allergy status to other drugs, medicaments and biological substances; Z82.49 Family history of ischemic heart disease and other diseases of the circulatory system
CPT/HCPCS: 36415-UA; 80053-TC; 80061-TC; 80320-TC; 80329-TC; 83036-90; 84443-TC; 85025-TC; 86592-TC; 90899; 93005; Z7610

== ENCOUNTER 2018-08-20 16:20 | Inpatient (IN) | payer MEDICARE, OTHER ==
--- NOTE | 2018-08-20 16:36 | ED Physician Chart ---
ED Chief Complaint/HPI - Patient Information Date Seen:: 08/20/18 Time Seen:: 16:45 Chief Complaint:: Depression History of Present Illness:: onset x 3 days of depression and sadness; no report of trauma, H/As, SIs, neck pain, C/P, SOB, Abd. Pain, A/N/V/D/C, fever, chills, or urinary s/s Allergies:: Allergies Allergy/AdvReac Type Severity Reaction Status Date / Time lidocaine Allergy Verified 02/01/18 16:48 Penicillins [PCN] Allergy Verified 02/01/18 16:48 triethanolamine AdvReac Verified 02/01/18 16:48 Historian:: Patient, EMS Review:: Nurse's Note Reviewed, Old Chart Reviewed, EMS run form Reviewed ED Review of Systems - Review of Systems General/Constitutional: No fever, No chills, No weight loss, No weakness, No diaphoresis, No edema, No loss of appetite Skin: No skin lesions, No rash, No bruising Head: No headache, No light-headedness Eyes: No loss of vision, No pain, No diplopia ENT: No earache, No nasal drainage, No sore throat, No tinnitus Neck: No neck pain, No swelling, No thyromegaly, No stiffness, No mass noted Cardio Vascular: No chest pain, No palpitations, No PND, No orthopnea, No edema Pulmonary: No SOB, No cough, No sputum, No wheezing GI: No nausea, No vomiting, No diarrhea, No pain, No melena, No hematochezia, No constipation, No hematemesis G/U: No dysuria, No frequency, No hematuria, No nacturia Musculoskeletal: No bone or joint pain, No back pain, No muscle pain Endocrine: No polyuria, No polydipsia Psychiatric: Prior psych history, Depression, Anxiety, No suicidal ideation, No homicidal ideation, No auditory hallucination, No visual hallucination Hematopoietic: No bruising, No lymphadenopathy Allergic/Immuno: No urticaria, No angioedema Neurological: No syncope, No focal symptoms, No weakness, No paresthesia, No headache, No seizure, No dizziness, No confusion, No vertigo ED Past Medical History - Past Medical History Obtainable: Yes Past Medical History: HTN, PUD/GERD Family History: HTN Social History: Non Smoker, No Alcohol, No Drug Use, Single, Care Facility Surgical History: None Psychiatricy History: Depression Medication: Reviewed Family Medical History - Family Member Mother History Unknown: Yes Ethnicity: Unknown Living Status: Unknown Hx Family Cancer: (UNKNOWN) Hx Family Coronary Artery Disease: (UNKNOWN) Hx Family Congestive Heart Failure: (UNKNOWN) Hx Family Hypertension: (UNKNOWN) Hx Family Stroke: (UNKNOWN) Hx Family Diabetes: (UNKNOWN) Hx Family Seizures: (UNKNOWN) Hx Family Dementia: (UNKNOWN) Hx Family AIDS: (UNKNOWN) Hx Family COPD: (UNKNOWN) Hx Family Hepatitis: (UNKNOWN) Hx Family Psychiatric Problems: (UNKNOWN) Hx Family Tuberculosis: (UNKNOWN) ED Physical Exam - Physical Examination General/Constitutional: Awake, Well-developed, well-nourished, Alert, No distress, GCS 15, Non-toxic appearing, Ambulatory Head: Atraumatic Eyes: Lids, conjuctiva normal, PERRL, EOMI Skin: Nl inspection, No rash, No skin lesions, No ecchymosis, Well hydrated, No lymphadenopathy ENMT: External ears, nose nl, TM canals nl, Nasal exam nl, Lips, teeth, gums nl , Oropharynx nl, Tonsils nl Neck: Nontender, Full ROM w/o pain, No JVD, No nuchal rigidity, No bruit, No mass, No stridor Respiratory: Nl effort/Exclusion, Clear to Auscultation, No Wheeze/Rhonchi/Rales Cardio Vascular: RRR, No murmur, gallop, rubs, NL S1 S2, Carotid/Femoral/Distal pulses equal bilaterally GI: No tenderness/rebounding/guarding, No organomegaly, No hernia, Normal BS's, Nondistended, No mass/bruits, No McBurney tenderness : No CVA tenderness Extremities: No tenderness or effusion, Full ROM, normal strength in all extremities, No edema, Normal digits & nails Neuro/Psych: Alert/oriented, DTR's symmetric, Normal sensory exam, Normal motor strength, Judgement/insight normal, Mood normal, Normal gait, No focal deficits Other Neuro/Psych comments:: + Psychomotor Retardation; no SIs; Mood/Affect: Labile Misc: Normal back, No paraspinal tenderness ED Labs/Radiology/EKG Results - Lab Results Comments:: Reviewed - EKG Interpretations EKG Time:: 17:09 Rate & Rhythm: 46; SB Comments:: non-specific st-t changes ED Septic Shock - . Is Septic Shock (SBP<90, OR Lactate>4 mmol\L) present?: No ED Reassessment (Disposition) - Reassessment Reassessment Condition:: Improved - Diagnosis Diagnosis:: Depression; Medical Clearance; Bipolar Disorder - Aftercare/Follow up Instructions Aftercare/Follow-Up Instructions:: Counseled pt regarding lab results/diagnosis & need follow up, Counseled pt & family regarding lab results/diagnosis & need follow up - Patient Disposition Discharge/Transfer:: Acute Care w/in this hosp Admitted to:: [facility] Condition at Disposition:: Stable, Improved
[2018-08-20 16:57] LABS: % BASOPHILS 0.8 % (0.0-2.0); % LYMPHOCYTES 44.2 % (20.0-50.0); % MONOCYTES 10.9 % (2.0-10.0); % NEUTROPHILS 40.1 % (40.0-80.0); EOSINOPHILE ABSOLUTE 0.2 Th/cmm (0.1-0.4); HEMATOCRIT 44.3 % (41.0-60); HEMOGLOBIN 14.7 gm/dL (12-16); LYMPHOCYTE ABSOLUTE 1.7 Th/cmm (1.5-3.0); MEAN CELL VOLUME 90.7 fl (80-99); MEAN CORPUSCULAR HEMOGLOBIN 30.1 pg (27.0-31.0); MEAN CORPUSCULAR HGB CONC 33.3 pg (28.0-36.0); MEAN PLATELET VOLUME 8.3 fl; MONOCYTE ABSOLUTE 0.4 Th/cmm (0.3-1.0); NEUTROPHILE ABSOLUTE 1.6 Th/cmm (1.8-8.0); PLATELET COUNT 65 Th/cmm (150-400); RED BLOOD COUNT 4.88 Mil/cmm (3.80-5.80); RED CELL DISTRIBUTION WIDTH 13.8 % (11.5-20.0)
[2018-08-20 16:59] LABS: WHITE BLOOD COUNT 3.9 Th/cmm (4.8-10.8)
[2018-08-20 17:18] LABS: ACETAMINOPHEN < 10.0 ug/mL (10.0-30.0); ALB/GLOB RATIO 0.9 (1.0-1.8); ALBUMIN 3.1 gm/dL (4.2-5.5); ALKALINE PHOSPHATASE 73 U/L (34-104); ANION GAP 12.3 (7.0-16.0); BILIRUBIN,TOTAL 0.5 mg/dL (0.3-1.0); BUN - UREA NITROGEN 25 mg/dL (7-25); CALCIUM SERUM 8.4 mg/dL (8.6-10.3); CHLORIDE 105 mEq/L (98-107); CHOLESTEROL 155 mg/dL (<200); CREATININE - SERUM 1.7 mg/dL (0.7-1.3); GFR AFRICAN-AMERICAN 52.3 ml/min (>90); GFR NON AFRICAN-AMERICAN 43.2 ml/min; GLUCOSE 86 mg/dL (70-105); HDL -HIGH DENSITY LIPOPROTEIN 25 mg/dL (23-92); POTASSIUM SERUM 4.3 mEq/L (3.5-5.1); SALICYLATES (ASPIRIN) < 25.0 mg/L (30.0-100.0); SGOT 107 U/L (13-39); SGPT/ALT 79 U/L (7-52); SODIUM SERUM 140 mEq/L (136-145); TOTAL PROTEIN,SERUM 6.5 gm/dL (6.0-8.3); TRIGLYCERIDES 103 mg/dL (<150)
[2018-08-20] MEDS ORDERED: Magnesium Hydroxide (MOM) 30 mL UDC PO PRN (20:24)
[2018-08-20 20:52] VITALS: BP 144/68
[2018-08-20 21:07] LABS: CHOLESTEROL 161 mg/dL (<200); HDL -HIGH DENSITY LIPOPROTEIN 26 mg/dL (23-92); TRIGLYCERIDES 108 mg/dL (<150)
[2018-08-21] MEDS ORDERED: Aspirin 81mg Chewable Tab PO SCH (09:00)
[2018-08-21] MEDS: Multivitamin w/ Minerals Tab PO SCH (09:04)
--- NOTE | 2018-08-21 22:12 | Psychiatric Evaluation ---
DATE OF SERVICE: 08/21/2018 IDENTIFYING DATA: The patient is a 63-year-old male, resident of [facility]. Information obtained by directly interviewing the patient as well as reviewing the admission papers. JUSTIFICATION FOR HOSPITALIZATION: The patient is admitted on a voluntary basis in view of his depression and agitation. CHIEF COMPLAINT: "I am not feeling well." HISTORY OF PRESENT ILLNESS: This is one of multiple psychiatric hospitalizations for this patient who is known to me from the previous psychiatric treatment. The patient was under my care in 01/2018 and the patient has been reported to be depressed and has been getting easily agitated. The patient sleep and appetite prior to the hospitalization are reported to be poor. The patient is on Depakote for the mood stabilization, even then, the patient has been having difficult time. The patient during the interview is not able to express clearly and the patient has expressive aphasia and the patient has not been able to articulate well and the patient is getting easily frustrated. The patient has been admitted here for stabilization on a voluntary basis. PAST PSYCHIATRIC HISTORY: Please refer to the above. MEDICAL HISTORY: Physical examination is requested to be done by Dr. Castillo. SUBSTANCE ABUSE HISTORY: None. SOCIAL HISTORY: The patient is a resident of the [facility]. MENTAL STATUS EXAMINATION: The patient is a 63-year-old male, looking his stated age, superficially cooperative. Eye contact is poor. Mood is noted to be irritable. Affect is constricted. Insight and judgment at this time are noted to be still impaired. Impulse control is noted to be limited. Coping skills are noted to be limited. The patient has been having difficult time to cope with the stress. Articulation problems are noted. The patient is getting easily frustrated. The patient is getting easily agitated. DIAGNOSTIC IMPRESSION: AXIS 1: Major depressive disorder, recurrent, by history. AXIS II: None. AXIS III: As per Dr. Castillo. IMMEDIATE TREATMENT PLAN: The patient is going to be observed on inpatient unit, provided with supportive psychotherapy. The patient is going to be closely monitored and encouraged to participate and verbalize the concerns rather than to act out. The patient is continued on the Depakote and mirtazapine. The patient is going to be closely monitored. Once stabilized, the patient is going to be discharged to [facility] to be followed up on an outpatient basis. JOB# [id number]
[2018-08-22] MEDS: Multivitamin w/ Minerals Tab PO SCH (09:37)
--- NOTE | 2018-08-22 11:47 | Internal Medicine Prog Note ---
Internal Medicine Subjective - Subjective Service Date: 08/22/18 ([id number] [facility] ) Internal Medicine Objective - Results Result Diagrams: 08/20/18 16:49 08/20/18 16:49 Recent Labs: Laboratory Last Values WBC 3.9 Th/cmm (4.8-10.8) L 08/20/18 16:49 RBC 4.88 Mil/cmm (3.80-5.80) 08/20/18 16:49 Hgb 14.7 gm/dL (12-16) 08/20/18 16:49 Hct 44.3 % (41.0-60) 08/20/18 16:49 MCV 90.7 fl (80-99) 08/20/18 16:49 MCH 30.1 pg (27.0-31.0) 08/20/18 16:49 MCHC Differential 33.3 pg (28.0-36.0) 08/20/18 16:49 RDW 13.8 % (11.5-20.0) 08/20/18 16:49 Plt Count 65 Th/cmm (150-400) L 08/20/18 16:49 MPV 8.3 fl 08/20/18 16:49 Neutrophils % 40.1 % (40.0-80.0) 08/20/18 16:49 Lymphocytes % 44.2 % (20.0-50.0) 08/20/18 16:49 Monocytes % 10.9 % (2.0-10.0) H 08/20/18 16:49 Eosinophils % 4.0 % (0.0-5.0) 08/20/18 16:49 Basophils % 0.8 % (0.0-2.0) 08/20/18 16:49 Sodium 140 mEq/L (136-145) 08/20/18 16:49 Potassium 4.3 mEq/L (3.5-5.1) 08/20/18 16:49 Chloride 105 mEq/L (98-107) 08/20/18 16:49 Carbon Dioxide 27.0 mEq/L (21.0-31.0) 08/20/18 16:49 Anion Gap 12.3 (7.0-16.0) 08/20/18 16:49 BUN 25 mg/dL (7-25) 08/20/18 16:49 Creatinine 1.7 mg/dL (0.7-1.3) H 08/20/18 16:49 Est GFR ( Amer) 52.3 ml/min (>90) 08/20/18 16:49 Est GFR (Non-Af Amer) 43.2 ml/min 08/20/18 16:49 BUN/Creatinine Ratio 14.7 08/20/18 16:49 Glucose 86 mg/dL (70-105) 08/20/18 16:49 Whole Bld Lactic Acid 1.38 mmol/L (0.60-1.99) 08/20/18 17:01 Calcium 8.4 mg/dL (8.6-10.3) L 08/20/18 16:49 Total Bilirubin 0.5 mg/dL (0.3-1.0) 08/20/18 16:49 AST 107 U/L (13-39) H 08/20/18 16:49 ALT 79 U/L (7-52) H 08/20/18 16:49 Alkaline Phosphatase 73 U/L (34-104) 08/20/18 16:49 Troponin I 0.02 ng/mL (0.01-0.05) 08/20/18 16:49 Total Protein 6.5 gm/dL (6.0-8.3) 08/20/18 16:49 Albumin 3.1 gm/dL (4.2-5.5) L 08/20/18 16:49 Globulin 3.4 gm/dL 08/20/18 16:49 Albumin/Globulin Ratio 0.9 (1.0-1.8) L 08/20/18 16:49 Triglycerides 103 mg/dL (<150) 08/20/18 16:49 Cholesterol 155 mg/dL (<200) 08/20/18 16:49 LDL Cholesterol Direct 107 mg/dL (75-193) 08/20/18 16:49 HDL Cholesterol 25 mg/dL (23-92) 08/20/18 16:49 TSH 9.36 uIU/ml (0.34-5.60) H 08/20/18 16:49 Digoxin 0.7 ng/ml (0.8-2.0) L 08/20/18 16:45 Salicylates < 25.0 mg/L (30.0-100.0) L 08/20/18 16:49 Acetaminophen < 10.0 ug/mL (10.0-30.0) L 08/20/18 16:49 Ethyl Alcohol < 10 mg/dL (0-10) 08/20/18 16:49 - Physical Exam Vitals and I&O: Vital Signs Temp 96.9 F 08/22/18 06:36 Pulse 49 08/22/18 09:38 Resp 16 08/22/18 06:36 BP 118/53 08/22/18 09:38 Pulse Ox 95 08/22/18 06:36 Intake & Output 08/21/18 08/22/18 08/22/18 18:59 06:59 18:59 Intake Total 1000 120 Balance 1000 120 Intake: Oral 1000 120 Other: # Voids 3 3 # Bowel Movements 1 1 Active Medications: Current Medications Acetaminophen (Tylenol) 650 mg PO Q4HR PRN PRN Reason: PAIN Stop: 10/19/18 20:23 Amiodarone HCl (Cordarone) 200 mg PO BID [facility] Stop: 10/20/18 08:59 Last Admin: 08/22/18 09:35 Dose: Not Given Aspirin (Aspirin Chewable) 162 mg PO DAILY [facility] Stop: 10/22/18 08:59 Bisacodyl (Dulcolax 10 Mg Supp) 10 mg RC DAILY PRN PRN Reason: IF MOM INEFFECTIVE Stop: 10/19/18 20:23 Digoxin (Lanoxin) 0.125 mg PO MWF [facility] Stop: 10/20/18 08:59 Last Admin: 08/21/18 09:00 Dose: Not Given Divalproex Sodium (Depakote Dr) 250 mg PO Q12HR [facility]; Protocol Stop: 10/19/18 20:59 Last Admin: 08/22/18 09:37 Dose: 250 mg Docusate Sodium (Colace) 100 mg PO DAILY [facility] Stop: 10/20/18 08:59 Last Admin: 08/22/18 09:37 Dose: 100 mg Famotidine (Pepcid) 20 mg PO BID [facility] Stop: 10/20/18 08:59 Last Admin: 08/22/18 09:37 Dose: 20 mg Lorazepam (Ativan) 0.5 mg PO Q4HR PRN; Protocol PRN Reason: Anxiety Stop: 09/19/18 20:42 Magnesium Hydroxide (Milk Of Magnesia) 30 ml PO DAILY PRN PRN Reason: BOWEL MAINTENANCE Stop: 10/19/18 20:23 Mirtazapine (Remeron) 30 mg PO HS [facility]; Protocol Stop: 10/19/18 20:59 Last Admin: 08/21/18 21:33 Dose: 30 mg Rivaroxaban (Xarelto) 10 mg PO DAILY [facility] Stop: 10/22/18 08:59 Sucralfate (Carafate) 1 gm PO ACHS [facility] Stop: 10/19/18 20:59 Last Admin: 08/22/18 11:35 Dose: 1 gm Zolpidem Tartrate (Ambien) 5 mg PO HS PRN PRN Reason: Insomnia Stop: 10/19/18 20:42
--- NOTE | 2018-08-22 12:18 | History & Physical ---
ADMIT DATE: 08/20/2018 HISTORY OF PRESENT ILLNESS: This is a 63-year-old male who is a [facility] resident, admitted to the Geropsych Unit due to a depression. For further management, the patient is now admitted. PAST MEDICAL HISTORY: Hypertension, CVA, TIA, dyslipidemia, PAD, GERD, dementia, cirrhosis. FAMILY HISTORY: Noncontributory. SOCIAL HISTORY: The patient is a [facility] resident, requiring 24-hour nursing care. SURGICAL HISTORY: Unknown. MEDICATIONS: Current medication is Tylenol; amiodarone; aspirin; Xarelto; digoxin, every Sunday, Sunday and Sunday; docusate sodium; Depakote; Pepcid; Remeron; multivitamin; Sucralfate. REVIEW OF SYSTEMS: Unable to obtain at this time. The patient is refusing to answer any questions. PHYSICAL EXAMINATION: GENERAL: The patient is well developed, well nourished, appears depressed. No apparent distress. VITAL SIGNS: Temperature 96.9, heart rate 61, blood pressure 100/64, respirations 16, O2 of 95%. HEENT: Head normocephalic, atraumatic. NECK: Supple. No mass. LUNGS: Clear bilaterally. ABDOMEN: Soft, nontender. GENITOURINARY, RECTAL, GENITALIA: The patient refused. EXTREMITIES: No clubbing, cyanosis, edema. LABORATORY DATA: WBC 3.9, H and H 14.7/44.3, platelet of 65. Sodium 140, potassium 4.2, chloride 105, BUN 25, creatinine 1.7, albumin 3.1. Digoxin 0.7. ASSESSMENT: Depression, thrombocytopenia, hypertension, history of cerebrovascular accident and transient ischemic attack, dyslipidemia, gastroesophageal reflux disease, dementia, and liver cirrhosis. Bradycardia secondary to hypertensive medications. PLAN: We will discontinue metoprolol for now. We will monitor the patient's heart rates. Monitor the patient's blood pressure closely. Fall precautions will be initiated. We will continue to monitor this patient. JOB# [id number]
--- NOTE | 2018-08-22 13:33 | Progress Notes ---
DATE: 08/22/2018 SUBJECTIVE: Staff was spoken to. The patient is interviewed. Mood is noted to be irritable. Affect is constricted. The patient has been having difficult time to articulate, the patient has speech problems. Coping skills at this time are noted to be very poor. Insight and judgment are noted to be very poor. ASSESSMENT: The patient is still impulsive. PLAN: To continue the patient with the current medications. I encouraged the patient to verbalize the concerns rather than to act out. JOB# [id number]
--- NOTE | 2018-08-22 16:28 | Internal Medicine Prog Note ---
Internal Medicine Subjective - Subjective Patient seen and examined:: chart reviewed Patient is:: awake, talking, confused, other (irritable) Patient Complaints of:: other (depression ) Per staff patient has:: no adverse event Internal Medicine Objective - Results Result Diagrams: 08/20/18 16:49 08/20/18 16:49 Recent Labs: Laboratory Last Values WBC 3.9 Th/cmm (4.8-10.8) L 08/20/18 16:49 RBC 4.88 Mil/cmm (3.80-5.80) 08/20/18 16:49 Hgb 14.7 gm/dL (12-16) 08/20/18 16:49 Hct 44.3 % (41.0-60) 08/20/18 16:49 MCV 90.7 fl (80-99) 08/20/18 16:49 MCH 30.1 pg (27.0-31.0) 08/20/18 16:49 MCHC Differential 33.3 pg (28.0-36.0) 08/20/18 16:49 RDW 13.8 % (11.5-20.0) 08/20/18 16:49 Plt Count 65 Th/cmm (150-400) L 08/20/18 16:49 MPV 8.3 fl 08/20/18 16:49 Neutrophils % 40.1 % (40.0-80.0) 08/20/18 16:49 Lymphocytes % 44.2 % (20.0-50.0) 08/20/18 16:49 Monocytes % 10.9 % (2.0-10.0) H 08/20/18 16:49 Eosinophils % 4.0 % (0.0-5.0) 08/20/18 16:49 Basophils % 0.8 % (0.0-2.0) 08/20/18 16:49 Sodium 140 mEq/L (136-145) 08/20/18 16:49 Potassium 4.3 mEq/L (3.5-5.1) 08/20/18 16:49 Chloride 105 mEq/L (98-107) 08/20/18 16:49 Carbon Dioxide 27.0 mEq/L (21.0-31.0) 08/20/18 16:49 Anion Gap 12.3 (7.0-16.0) 08/20/18 16:49 BUN 25 mg/dL (7-25) 08/20/18 16:49 Creatinine 1.7 mg/dL (0.7-1.3) H 08/20/18 16:49 Est GFR ( Amer) 52.3 ml/min (>90) 08/20/18 16:49 Est GFR (Non-Af Amer) 43.2 ml/min 08/20/18 16:49 BUN/Creatinine Ratio 14.7 08/20/18 16:49 Glucose 86 mg/dL (70-105) 08/20/18 16:49 Whole Bld Lactic Acid 1.38 mmol/L (0.60-1.99) 08/20/18 17:01 Calcium 8.4 mg/dL (8.6-10.3) L 08/20/18 16:49 Total Bilirubin 0.5 mg/dL (0.3-1.0) 08/20/18 16:49 AST 107 U/L (13-39) H 08/20/18 16:49 ALT 79 U/L (7-52) H 08/20/18 16:49 Alkaline Phosphatase 73 U/L (34-104) 08/20/18 16:49 Troponin I 0.02 ng/mL (0.01-0.05) 08/20/18 16:49 Total Protein 6.5 gm/dL (6.0-8.3) 08/20/18 16:49 Albumin 3.1 gm/dL (4.2-5.5) L 08/20/18 16:49 Globulin 3.4 gm/dL 08/20/18 16:49 Albumin/Globulin Ratio 0.9 (1.0-1.8) L 08/20/18 16:49 Triglycerides 103 mg/dL (<150) 08/20/18 16:49 Cholesterol 155 mg/dL (<200) 08/20/18 16:49 LDL Cholesterol Direct 107 mg/dL (75-193) 08/20/18 16:49 HDL Cholesterol 25 mg/dL (23-92) 08/20/18 16:49 TSH 9.36 uIU/ml (0.34-5.60) H 08/20/18 16:49 Digoxin 0.7 ng/ml (0.8-2.0) L 08/20/18 16:45 Salicylates < 25.0 mg/L (30.0-100.0) L 08/20/18 16:49 Acetaminophen < 10.0 ug/mL (10.0-30.0) L 08/20/18 16:49 Ethyl Alcohol < 10 mg/dL (0-10) 08/20/18 16:49 - Physical Exam Vitals and I&O: Vital Signs Temp 96.9 F 08/22/18 06:36 Pulse 49 08/22/18 16:16 Resp 16 08/22/18 06:36 BP 118/53 08/22/18 09:38 Pulse Ox 95 08/22/18 06:36 Intake & Output 08/21/18 08/22/18 08/22/18 18:59 06:59 18:59 Intake Total 1000 120 Balance 1000 120 Intake: Oral 1000 120 Other: # Voids 3 3 # Bowel Movements 1 1 Active Medications: Current Medications Acetaminophen (Tylenol) 650 mg PO Q4HR PRN PRN Reason: PAIN Stop: 10/19/18 20:23 Amiodarone HCl (Cordarone) 200 mg PO BID [facility] Stop: 10/20/18 08:59 Last Admin: 08/22/18 16:16 Dose: Not Given Bisacodyl (Dulcolax 10 Mg Supp) 10 mg RC DAILY PRN PRN Reason: IF MOM INEFFECTIVE Stop: 10/19/18 20:23 Digoxin (Lanoxin) 0.125 mg PO MWF [facility] Stop: 10/20/18 08:59 Last Admin: 08/21/18 09:00 Dose: Not Given Divalproex Sodium (Depakote Dr) 250 mg PO Q12HR [facility]; Protocol Stop: 10/19/18 20:59 Last Admin: 08/22/18 09:37 Dose: 250 mg Docusate Sodium (Colace) 100 mg PO DAILY [facility] Stop: 10/20/18 08:59 Last Admin: 08/22/18 09:37 Dose: 100 mg Famotidine (Pepcid) 20 mg PO BID [facility] Stop: 10/20/18 08:59 Last Admin: 08/22/18 16:19 Dose: 20 mg Lorazepam (Ativan) 0.5 mg PO Q4HR PRN; Protocol PRN Reason: Anxiety Stop: 09/19/18 20:42 Magnesium Hydroxide (Milk Of Magnesia) 30 ml PO DAILY PRN PRN Reason: BOWEL MAINTENANCE Stop: 10/19/18 20:23 Mirtazapine (Remeron) 30 mg PO HS [facility]; Protocol Stop: 10/19/18 20:59 Last Admin: 08/21/18 21:33 Dose: 30 mg Rivaroxaban (Xarelto) 10 mg PO DAILY [facility] Stop: 10/22/18 08:59 Sucralfate (Carafate) 1 gm PO ACHS [facility] Stop: 10/19/18 20:59 Last Admin: 08/22/18 16:19 Dose: 1 gm Zolpidem Tartrate (Ambien) 5 mg PO HS PRN PRN Reason: Insomnia Stop: 10/19/18 20:42 General: weak, alert HEENT: NC/AT Neck: Supple Lungs: CTAB Cardiovascular: Normal S1, Normal S2 Abdomen: soft, non-tender Extremities: clear Internal Medicine Assmt/Plan - Assessment Assessment: depression thrombocytopenia htn h/o cva h/o ischemic attack h/o dyslipidemia gerd h/o dementia h/o liver cirrhosis - Plan Plan: as per psych will monitor
[2018-08-23] MEDS ORDERED: Aspirin 81mg Chewable Tab PO SCH (09:00)
[2018-08-23] MEDS: Multivitamin w/ Minerals Tab PO SCH (10:00)
--- NOTE | 2018-08-23 13:10 | Internal Medicine Prog Note ---
Internal Medicine Subjective - Subjective Service Date: 08/23/18 Patient is:: awake, talking, confused, other (irritable) Patient Complaints of:: other (depression ) Per staff patient has:: no adverse event Internal Medicine Objective - Results Result Diagrams: 08/20/18 16:49 08/20/18 16:49 Recent Labs: Laboratory Last Values WBC 3.9 Th/cmm (4.8-10.8) L 08/20/18 16:49 RBC 4.88 Mil/cmm (3.80-5.80) 08/20/18 16:49 Hgb 14.7 gm/dL (12-16) 08/20/18 16:49 Hct 44.3 % (41.0-60) 08/20/18 16:49 MCV 90.7 fl (80-99) 08/20/18 16:49 MCH 30.1 pg (27.0-31.0) 08/20/18 16:49 MCHC Differential 33.3 pg (28.0-36.0) 08/20/18 16:49 RDW 13.8 % (11.5-20.0) 08/20/18 16:49 Plt Count 65 Th/cmm (150-400) L 08/20/18 16:49 MPV 8.3 fl 08/20/18 16:49 Neutrophils % 40.1 % (40.0-80.0) 08/20/18 16:49 Lymphocytes % 44.2 % (20.0-50.0) 08/20/18 16:49 Monocytes % 10.9 % (2.0-10.0) H 08/20/18 16:49 Eosinophils % 4.0 % (0.0-5.0) 08/20/18 16:49 Basophils % 0.8 % (0.0-2.0) 08/20/18 16:49 Sodium 140 mEq/L (136-145) 08/20/18 16:49 Potassium 4.3 mEq/L (3.5-5.1) 08/20/18 16:49 Chloride 105 mEq/L (98-107) 08/20/18 16:49 Carbon Dioxide 27.0 mEq/L (21.0-31.0) 08/20/18 16:49 Anion Gap 12.3 (7.0-16.0) 08/20/18 16:49 BUN 25 mg/dL (7-25) 08/20/18 16:49 Creatinine 1.7 mg/dL (0.7-1.3) H 08/20/18 16:49 Est GFR ( Amer) 52.3 ml/min (>90) 08/20/18 16:49 Est GFR (Non-Af Amer) 43.2 ml/min 08/20/18 16:49 BUN/Creatinine Ratio 14.7 08/20/18 16:49 Glucose 86 mg/dL (70-105) 08/20/18 16:49 Whole Bld Lactic Acid 1.38 mmol/L (0.60-1.99) 08/20/18 17:01 Calcium 8.4 mg/dL (8.6-10.3) L 08/20/18 16:49 Total Bilirubin 0.5 mg/dL (0.3-1.0) 08/20/18 16:49 AST 107 U/L (13-39) H 08/20/18 16:49 ALT 79 U/L (7-52) H 08/20/18 16:49 Alkaline Phosphatase 73 U/L (34-104) 08/20/18 16:49 Troponin I 0.02 ng/mL (0.01-0.05) 08/20/18 16:49 Total Protein 6.5 gm/dL (6.0-8.3) 08/20/18 16:49 Albumin 3.1 gm/dL (4.2-5.5) L 08/20/18 16:49 Globulin 3.4 gm/dL 08/20/18 16:49 Albumin/Globulin Ratio 0.9 (1.0-1.8) L 08/20/18 16:49 Triglycerides 103 mg/dL (<150) 08/20/18 16:49 Cholesterol 155 mg/dL (<200) 08/20/18 16:49 LDL Cholesterol Direct 107 mg/dL (75-193) 08/20/18 16:49 HDL Cholesterol 25 mg/dL (23-92) 08/20/18 16:49 TSH 9.36 uIU/ml (0.34-5.60) H 08/20/18 16:49 Digoxin 0.7 ng/ml (0.8-2.0) L 08/20/18 16:45 Salicylates < 25.0 mg/L (30.0-100.0) L 08/20/18 16:49 Acetaminophen < 10.0 ug/mL (10.0-30.0) L 08/20/18 16:49 Ethyl Alcohol < 10 mg/dL (0-10) 08/20/18 16:49 - Physical Exam Vitals and I&O: Vital Signs Temp 97.1 F 08/22/18 20:00 Pulse 54 08/23/18 11:04 Resp 19 08/22/18 20:00 BP 140/71 08/22/18 20:00 Pulse Ox 97 08/22/18 20:00 Intake & Output 08/22/18 08/23/18 08/23/18 18:59 06:59 18:59 Intake Total 900 120 Balance 900 120 Intake: Oral 900 120 Other: # Voids 3 3 # Bowel Movements 1 Active Medications: Current Medications Acetaminophen (Tylenol) 650 mg PO Q4HR PRN PRN Reason: PAIN Stop: 10/19/18 20:23 Amiodarone HCl (Cordarone) 200 mg PO BID [facility] Stop: 10/20/18 08:59 Last Admin: 08/23/18 11:04 Dose: Not Given Bisacodyl (Dulcolax 10 Mg Supp) 10 mg RC DAILY PRN PRN Reason: IF MOM INEFFECTIVE Stop: 10/19/18 20:23 Digoxin (Lanoxin) 0.125 mg PO MWF [facility] Stop: 10/20/18 08:59 Last Admin: 08/21/18 09:00 Dose: Not Given Divalproex Sodium (Depakote Dr) 250 mg PO Q12HR [facility]; Protocol Stop: 10/19/18 20:59 Last Admin: 08/23/18 10:00 Dose: 250 mg Docusate Sodium (Colace) 100 mg PO DAILY [facility] Stop: 10/20/18 08:59 Last Admin: 08/23/18 09:58 Dose: 100 mg Famotidine (Pepcid) 20 mg PO BID [facility] Stop: 10/20/18 08:59 Last Admin: 08/23/18 10:00 Dose: 20 mg Lorazepam (Ativan) 0.5 mg PO Q4HR PRN; Protocol PRN Reason: Anxiety Stop: 09/19/18 20:42 Magnesium Hydroxide (Milk Of Magnesia) 30 ml PO DAILY PRN PRN Reason: BOWEL MAINTENANCE Stop: 10/19/18 20:23 Mirtazapine (Remeron) 30 mg PO HS [facility]; Protocol Stop: 10/19/18 20:59 Last Admin: 08/22/18 21:53 Dose: 30 mg Rivaroxaban (Xarelto) 10 mg PO DAILY [facility] Stop: 10/22/18 08:59 Last Admin: 08/23/18 09:58 Dose: 10 mg Sucralfate (Carafate) 1 gm PO ACHS [facility] Stop: 10/19/18 20:59 Last Admin: 08/23/18 11:30 Dose: Not Given Zolpidem Tartrate (Ambien) 5 mg PO HS PRN PRN Reason: Insomnia Stop: 10/19/18 20:42 Last Admin: 08/22/18 21:54 Dose: 5 mg General: weak, alert HEENT: NC/AT Neck: Supple Lungs: CTAB Cardiovascular: Normal S1, Normal S2 Abdomen: soft, non-tender Extremities: clear Internal Medicine Assmt/Plan - Assessment Assessment: depression thrombocytopenia htn hx cva tia dyslipidemia - Plan Plan: fall precautions follow up cbc in am continue current plan of care
[2018-08-23 13:13] LABS: HEP A AB IGM Negative (Negative); HEP B CORE IGM Negative (Negative); HEP B SURFACE AG QL Negative (Negative); HEP C ANTIBODY >11.0 s/co ratio (0.0-0.9)
[2018-08-24] MEDS: Multivitamin w/ Minerals Tab PO SCH (09:41)
--- NOTE | 2018-08-24 11:05 | Progress Notes ---
DATE: 08/23/2018 SUBJECTIVE: Staff was spoken to. The patient is interviewed. Mood is noted to be irritable. The patient's coping skills are noted to be poor. Sleep and appetite are noted to be limited. No side effects to the medications are noted at this time. The patient's impulsivity is a major problem at this time. ASSESSMENT: The patient is still impulsive and mood swings are still a concern. PLAN: To continue the patient with supportive therapy and I encouraged the patient to verbalize the concerns rather than to act out. [facility]# [id number]
--- NOTE | 2018-08-24 12:36 | Internal Medicine Prog Note ---
Internal Medicine Subjective - Subjective Patient seen and examined:: with staff, chart reviewed Patient is:: awake, interactive, talking, confused, other (irritable) Patient Complaints of:: other (depression ) Per staff patient has:: no adverse event, tolerating meds Internal Medicine Objective - Results Result Diagrams: 08/20/18 16:49 08/20/18 16:49 Recent Labs: Laboratory Last Values WBC 3.9 Th/cmm (4.8-10.8) L 08/20/18 16:49 RBC 4.88 Mil/cmm (3.80-5.80) 08/20/18 16:49 Hgb 14.7 gm/dL (12-16) 08/20/18 16:49 Hct 44.3 % (41.0-60) 08/20/18 16:49 MCV 90.7 fl (80-99) 08/20/18 16:49 MCH 30.1 pg (27.0-31.0) 08/20/18 16:49 MCHC Differential 33.3 pg (28.0-36.0) 08/20/18 16:49 RDW 13.8 % (11.5-20.0) 08/20/18 16:49 Plt Count 65 Th/cmm (150-400) L 08/20/18 16:49 MPV 8.3 fl 08/20/18 16:49 Neutrophils % 40.1 % (40.0-80.0) 08/20/18 16:49 Lymphocytes % 44.2 % (20.0-50.0) 08/20/18 16:49 Monocytes % 10.9 % (2.0-10.0) H 08/20/18 16:49 Eosinophils % 4.0 % (0.0-5.0) 08/20/18 16:49 Basophils % 0.8 % (0.0-2.0) 08/20/18 16:49 Sodium 140 mEq/L (136-145) 08/20/18 16:49 Potassium 4.3 mEq/L (3.5-5.1) 08/20/18 16:49 Chloride 105 mEq/L (98-107) 08/20/18 16:49 Carbon Dioxide 27.0 mEq/L (21.0-31.0) 08/20/18 16:49 Anion Gap 12.3 (7.0-16.0) 08/20/18 16:49 BUN 25 mg/dL (7-25) 08/20/18 16:49 Creatinine 1.7 mg/dL (0.7-1.3) H 08/20/18 16:49 Est GFR ( Amer) 52.3 ml/min (>90) 08/20/18 16:49 Est GFR (Non-Af Amer) 43.2 ml/min 08/20/18 16:49 BUN/Creatinine Ratio 14.7 08/20/18 16:49 Glucose 86 mg/dL (70-105) 08/20/18 16:49 Whole Bld Lactic Acid 1.38 mmol/L (0.60-1.99) 08/20/18 17:01 Calcium 8.4 mg/dL (8.6-10.3) L 08/20/18 16:49 Total Bilirubin 0.5 mg/dL (0.3-1.0) 08/20/18 16:49 AST 107 U/L (13-39) H 08/20/18 16:49 ALT 79 U/L (7-52) H 08/20/18 16:49 Alkaline Phosphatase 73 U/L (34-104) 08/20/18 16:49 Troponin I 0.02 ng/mL (0.01-0.05) 08/20/18 16:49 Total Protein 6.5 gm/dL (6.0-8.3) 08/20/18 16:49 Albumin 3.1 gm/dL (4.2-5.5) L 08/20/18 16:49 Globulin 3.4 gm/dL 08/20/18 16:49 Albumin/Globulin Ratio 0.9 (1.0-1.8) L 08/20/18 16:49 Triglycerides 103 mg/dL (<150) 08/20/18 16:49 Cholesterol 155 mg/dL (<200) 08/20/18 16:49 LDL Cholesterol Direct 107 mg/dL (75-193) 08/20/18 16:49 HDL Cholesterol 25 mg/dL (23-92) 08/20/18 16:49 TSH 9.36 uIU/ml (0.34-5.60) H 08/20/18 16:49 Digoxin 0.7 ng/ml (0.8-2.0) L 08/20/18 16:45 Salicylates < 25.0 mg/L (30.0-100.0) L 08/20/18 16:49 Acetaminophen < 10.0 ug/mL (10.0-30.0) L 08/20/18 16:49 Ethyl Alcohol < 10 mg/dL (0-10) 08/20/18 16:49 Hepatitis A IgM Ab Negative (Negative) 08/22/18 16:55 Hep Bs Antigen Negative (Negative) 08/22/18 16:55 Hep B Core IgM Ab Negative (Negative) 08/22/18 16:55 Hepatitis C Antibody >11.0 s/co ratio (0.0-0.9) H 08/22/18 16:55 - Physical Exam Vitals and I&O: Vital Signs Temp 97.9 F 08/24/18 06:40 Pulse 58 08/24/18 09:40 Resp 20 08/24/18 06:40 BP 127/60 08/24/18 06:40 Pulse Ox 94 08/24/18 06:40 Intake & Output 08/23/18 08/24/18 08/24/18 18:59 06:59 18:59 Intake Total 1200 Balance 1200 Intake: Oral 1200 Other: # Bowel Movements 1 Active Medications: Current Medications Acetaminophen (Tylenol) 650 mg PO Q4HR PRN PRN Reason: PAIN Stop: 10/19/18 20:23 Amiodarone HCl (Cordarone) 200 mg PO BID [facility] Stop: 10/20/18 08:59 Last Admin: 08/24/18 09:40 Dose: Not Given Bisacodyl (Dulcolax 10 Mg Supp) 10 mg RC DAILY PRN PRN Reason: IF MOM INEFFECTIVE Stop: 10/19/18 20:23 Digoxin (Lanoxin) 0.125 mg PO MWF [facility] Stop: 10/20/18 08:59 Last Admin: 08/23/18 10:30 Dose: Not Given Divalproex Sodium (Depakote Dr) 250 mg PO Q12HR [facility]; Protocol Stop: 10/19/18 20:59 Last Admin: 08/24/18 09:40 Dose: Not Given Docusate Sodium (Colace) 100 mg PO DAILY [facility] Stop: 10/20/18 08:59 Last Admin: 08/24/18 09:40 Dose: Not Given Famotidine (Pepcid) 20 mg PO BID [facility] Stop: 10/20/18 08:59 Last Admin: 08/24/18 09:41 Dose: Not Given Lorazepam (Ativan) 0.5 mg PO Q4HR PRN; Protocol PRN Reason: Anxiety Stop: 09/19/18 20:42 Magnesium Hydroxide (Milk Of Magnesia) 30 ml PO DAILY PRN PRN Reason: BOWEL MAINTENANCE Stop: 10/19/18 20:23 Mirtazapine (Remeron) 30 mg PO HS [facility]; Protocol Stop: 10/19/18 20:59 Last Admin: 08/23/18 21:30 Dose: Not Given Rivaroxaban (Xarelto) 10 mg PO DAILY [facility] Stop: 10/22/18 08:59 Last Admin: 08/24/18 09:41 Dose: Not Given Sucralfate (Carafate) 1 gm PO ACHS [facility] Stop: 10/19/18 20:59 Last Admin: 08/24/18 11:47 Dose: Not Given Zolpidem Tartrate (Ambien) 5 mg PO HS PRN PRN Reason: Insomnia Stop: 10/19/18 20:42 Last Admin: 08/23/18 21:07 Dose: 5 mg General: weak, demented HEENT: NC/AT Neck: Supple Lungs: CTAB Cardiovascular: Normal S1, Normal S2 Abdomen: soft, non-tender Extremities: excoriation Neurological: no change, disorganized Internal Medicine Assmt/Plan - Assessment Assessment: - Assessment Assessment: depression thrombocytopenia htn hx cva tia dyslipidemia - Plan Plan: fall precautions follow up cbc in am continue current plan of care - Plan Plan: cpm claus rn Nutritional Asmnt/Malnutr-PDOC - Dietary Evaluation Malnutrition Findings (Please click <Entered> for more info): Nutritional Asmnt/Malnutrition Start: 08/24/18 09: 49 Text: Status: Complete Freq: Protocol: Document 08/24/18 09:50 ERWIN (Rec: 08/24/18 09:54 ERWIN ANGUIANO- [id number]) Nutritional Asmnt/Malnutrition Patient General Information Diagnosis psychosis Pertinent Medical Hx/Surgical Hx HTN, CVA, TIA, dyslipidemia, PAd, GERD, dementia Subjective Information Pt asleep at time of visit Current Diet Order/ Nutrition Support mechanical soft chopped Pertinent Medications bisacodyl, coalce, pepcid, MOM , sucrafate Pertinent Labs 08/20: Na 140, K 4.3, Cl 105, CO2 27, BUN 25, Cr 1.7, Ca 8.4 , glucose 86 Nutritional Hx/Data Height 1.75 m Height (Calculated Centimeters) 175.3 Current Weight (lbs) 81.647 kg Weight (Calculated Kilograms) 81.6 Weight (Calculated Grams) 65529.6 Body Mass Index (BMI) 26.6 Weight Status Underweight GI Symptoms GI Symptoms None Last BM 08/23 Cultural/Ethnic/Roman Catholic Belief unknown Usual diet at home mechanical soft chopped Skin Integrity/Comment: timothy score 15 Estimated Nutritional Goals BEE in Kcals: Using Current wt Calories/Kcals/Kg 25-30kcals/kg Kcals Calculated 2049-2459kcals/day Protein: Using Current wt Protein g/kg: ~1g/kg Protein Calculated ~82kg/day Fluid: ml per MD Nutritional Problem 1. Problem Problem No nutrition diagnosis at this time Intervention/Recommendation Comments Recommend continuing ALEXANDER Mechancial soft diet Expected Outcomes/Goals Expected Outcomes/Goals PO intake >75% of meals
--- NOTE | 2018-08-24 13:22 | Consultation ---
DATE OF CONSULTATION: 08/23/2018 REFERRING PHYSICIAN: Marlin Gray MD TYPE OF CONSULTATION: Psychology. HISTORY OF PRESENT ILLNESS: The patient is a 63-year-old male. The patient is a resident of [facility]. The following is by record review and by the patient's self-report. The patient is being admitted due to increased depression as well as agitation. The staff at the patient's facility report that he had become very depressed as well as getting easily agitated. The patient admits that he is not feeling well, but was not specific. The patient denied any suicidal ideation, plan or intention. The patient is having difficulty articulating speech, which is compromised by expressive aphasia to a significant degree. The patient is able to answer yes or no to clinical questions. The patient is easily frustrated during this clinical interview. PAST MEDICAL HISTORY: Please see history and physical by Dr. Castillo. PAST PSYCHIATRIC HISTORY: The patient has a history of depression. The patient has multiple previous psychiatric hospitalizations. The patient is under the care of a psychiatrist at his placement. SUBSTANCE ABUSE HISTORY: The patient denied any history of tobacco, alcohol or illicit drug use. PSYCHOSOCIAL HISTORY: The patient is a resident of [facility]. The patient did not state whether he has a support system or any family members that are involved in his care. The patient did not answer questions about occupational or educational history or mu-ism affiliation. The patient did not answer questions about current legal problems or history of physical or sexual abuse. The patient expects to return to his placement. MENTAL STATUS EXAMINATION: The patient appears to be his stated age. The patient's attitude is superficially cooperative. Eye contact is poor. Speech is compromised by expressive aphasia. The patient answered yes or no to clinical questions. Mood is irritable and depressed. Affect is constricted. Thought process needs further evaluation, but is linear and concrete. The patient denied any suicidal ideation, plan or intention. The patient denied any delusions or hallucinations. The patient's behavior on the unit is easily frustrated and agitated. Impulse control is limited. Concentration is poor. The patient did not participate in the memory assessment. The patient did not participate in the interpretation of proverbs. Sensorium is alert and oriented to self and place. Insight is poor. Judgment is compromised. DIAGNOSTIC IMPRESSION: AXIS I: History of major depressive disorder, recurrent, severe. AXIS II: Deferred. AXIS III: Per Dr. Castillo. TREATMENT PLAN: The patient has been seen by Dr. Gray for psychiatric evaluation and for the management of the patient's psychotropic medications. We will provide supportive psychotherapy to include reality orientation, differentiation and integration. We will provide coping strategies for phase of life issues to assist the patient in reducing his depression as well as coping with stressors at his placement. We will provide stress management to increase the patient's frustration tolerance. We will encourage the patient to be able to demonstrate emotional and self-regulation prior to discharge. Thank you, Dr. Gray for this consult and the opportunity to participate in this patient's care. [facility]# [id number] JONA
--- NOTE | 2018-08-24 21:49 | Progress Notes ---
DATE: 08/24/2018 PSYCHIATRIC PROGRESS NOTE SUBJECTIVE: Staff was spoken to. The patient is interviewed. Mood is noted to be depressed. Affect is constricted. Coping skills are noted to be poor today. The patient's irritability and anger are still concerns, but the patient at this time is noted depressed today. Sleep is noted to be improving. Appetite is noted to be poor. ASSESSMENT: The patient is still impulsive. PLAN: To continue the patient with the supportive therapy, encouraged the patient to verbalize the concerns rather than to act out. [facility]# [id number]
[2018-08-25] MEDS: Multivitamin w/ Minerals Tab PO SCH (08:46)
--- NOTE | 2018-08-25 10:33 | Internal Medicine Prog Note ---
Internal Medicine Subjective - Subjective Patient is:: awake, interactive, confused, other (depressed,impulsive ) Patient Complaints of:: other (depression ) Per staff patient has:: no adverse event, tolerating meds Internal Medicine Objective - Results Result Diagrams: 08/20/18 16:49 08/20/18 16:49 Recent Labs: Laboratory Last Values WBC 3.9 Th/cmm (4.8-10.8) L 08/20/18 16:49 RBC 4.88 Mil/cmm (3.80-5.80) 08/20/18 16:49 Hgb 14.7 gm/dL (12-16) 08/20/18 16:49 Hct 44.3 % (41.0-60) 08/20/18 16:49 MCV 90.7 fl (80-99) 08/20/18 16:49 MCH 30.1 pg (27.0-31.0) 08/20/18 16:49 MCHC Differential 33.3 pg (28.0-36.0) 08/20/18 16:49 RDW 13.8 % (11.5-20.0) 08/20/18 16:49 Plt Count 65 Th/cmm (150-400) L 08/20/18 16:49 MPV 8.3 fl 08/20/18 16:49 Neutrophils % 40.1 % (40.0-80.0) 08/20/18 16:49 Lymphocytes % 44.2 % (20.0-50.0) 08/20/18 16:49 Monocytes % 10.9 % (2.0-10.0) H 08/20/18 16:49 Eosinophils % 4.0 % (0.0-5.0) 08/20/18 16:49 Basophils % 0.8 % (0.0-2.0) 08/20/18 16:49 Sodium 140 mEq/L (136-145) 08/20/18 16:49 Potassium 4.3 mEq/L (3.5-5.1) 08/20/18 16:49 Chloride 105 mEq/L (98-107) 08/20/18 16:49 Carbon Dioxide 27.0 mEq/L (21.0-31.0) 08/20/18 16:49 Anion Gap 12.3 (7.0-16.0) 08/20/18 16:49 BUN 25 mg/dL (7-25) 08/20/18 16:49 Creatinine 1.7 mg/dL (0.7-1.3) H 08/20/18 16:49 Est GFR ( Amer) 52.3 ml/min (>90) 08/20/18 16:49 Est GFR (Non-Af Amer) 43.2 ml/min 08/20/18 16:49 BUN/Creatinine Ratio 14.7 08/20/18 16:49 Glucose 86 mg/dL (70-105) 08/20/18 16:49 Whole Bld Lactic Acid 1.38 mmol/L (0.60-1.99) 08/20/18 17:01 Calcium 8.4 mg/dL (8.6-10.3) L 08/20/18 16:49 Total Bilirubin 0.5 mg/dL (0.3-1.0) 08/20/18 16:49 AST 107 U/L (13-39) H 08/20/18 16:49 ALT 79 U/L (7-52) H 08/20/18 16:49 Alkaline Phosphatase 73 U/L (34-104) 08/20/18 16:49 Troponin I 0.02 ng/mL (0.01-0.05) 08/20/18 16:49 Total Protein 6.5 gm/dL (6.0-8.3) 08/20/18 16:49 Albumin 3.1 gm/dL (4.2-5.5) L 08/20/18 16:49 Globulin 3.4 gm/dL 08/20/18 16:49 Albumin/Globulin Ratio 0.9 (1.0-1.8) L 08/20/18 16:49 Triglycerides 103 mg/dL (<150) 08/20/18 16:49 Cholesterol 155 mg/dL (<200) 08/20/18 16:49 LDL Cholesterol Direct 107 mg/dL (75-193) 08/20/18 16:49 HDL Cholesterol 25 mg/dL (23-92) 08/20/18 16:49 TSH 9.36 uIU/ml (0.34-5.60) H 08/20/18 16:49 Digoxin 0.7 ng/ml (0.8-2.0) L 08/20/18 16:45 Salicylates < 25.0 mg/L (30.0-100.0) L 08/20/18 16:49 Acetaminophen < 10.0 ug/mL (10.0-30.0) L 08/20/18 16:49 Ethyl Alcohol < 10 mg/dL (0-10) 08/20/18 16:49 RPR NONREACTIVE (NONREACTIVE) 08/20/18 16:49 Hepatitis A IgM Ab Negative (Negative) 08/22/18 16:55 Hep Bs Antigen Negative (Negative) 08/22/18 16:55 Hep B Core IgM Ab Negative (Negative) 08/22/18 16:55 Hepatitis C Antibody >11.0 s/co ratio (0.0-0.9) H 08/22/18 16:55 - Physical Exam Vitals and I&O: Vital Signs Temp 97.7 F 08/25/18 06:46 Pulse 60 08/25/18 06:46 Resp 18 08/25/18 06:46 BP 122/63 08/25/18 06:46 Pulse Ox 97 08/25/18 06:46 Intake & Output 08/24/18 08/25/18 08/25/18 18:59 06:59 18:59 Intake Total 1200 240 Balance 1200 240 Intake: Oral 1200 240 Other: # Voids 2 # Bowel Movements 2 Active Medications: Current Medications Acetaminophen (Tylenol) 650 mg PO Q4HR PRN PRN Reason: PAIN Stop: 10/19/18 20:23 Amiodarone HCl (Cordarone) 200 mg PO BID [facility] Stop: 10/20/18 08:59 Last Admin: 08/25/18 08:45 Dose: Not Given Bisacodyl (Dulcolax 10 Mg Supp) 10 mg RC DAILY PRN PRN Reason: IF MOM INEFFECTIVE Stop: 10/19/18 20:23 Digoxin (Lanoxin) 0.125 mg PO MWF [facility] Stop: 10/20/18 08:59 Last Admin: 08/23/18 10:30 Dose: Not Given Divalproex Sodium (Depakote Dr) 250 mg PO Q12HR [facility]; Protocol Stop: 10/19/18 20:59 Last Admin: 08/25/18 08:45 Dose: 250 mg Docusate Sodium (Colace) 100 mg PO DAILY [facility] Stop: 10/20/18 08:59 Last Admin: 08/25/18 08:46 Dose: 100 mg Famotidine (Pepcid) 20 mg PO BID [facility] Stop: 10/20/18 08:59 Last Admin: 08/25/18 08:46 Dose: 20 mg Lorazepam (Ativan) 0.5 mg PO Q4HR PRN; Protocol PRN Reason: Anxiety Stop: 09/19/18 20:42 Magnesium Hydroxide (Milk Of Magnesia) 30 ml PO DAILY PRN PRN Reason: BOWEL MAINTENANCE Stop: 10/19/18 20:23 Mirtazapine (Remeron) 30 mg PO HS [facility]; Protocol Stop: 10/19/18 20:59 Last Admin: 08/24/18 20:58 Dose: 30 mg Rivaroxaban (Xarelto) 10 mg PO DAILY [facility] Stop: 10/22/18 08:59 Last Admin: 08/25/18 08:46 Dose: 10 mg Sucralfate (Carafate) 1 gm PO ACHS [facility] Stop: 10/19/18 20:59 Last Admin: 08/25/18 07:06 Dose: 1 gm Zolpidem Tartrate (Ambien) 5 mg PO HS PRN PRN Reason: Insomnia Stop: 10/19/18 20:42 Last Admin: 08/24/18 20:58 Dose: 5 mg General: weak, demented HEENT: NC/AT Neck: Supple Lungs: CTAB Cardiovascular: Normal S1, Normal S2 Abdomen: soft, non-tender Extremities: excoriation Neurological: no change, disorganized Internal Medicine Assmt/Plan - Assessment Assessment: depression thrombocytopenia htn h/o cva h/o ischemic attack h/o dyslipidemia gerd h/o dementia h/o liver cirrhosis - Plan Plan: as per psych will monitor Nutritional Asmnt/Malnutr-PDOC - Dietary Evaluation Malnutrition Findings (Please click <Entered> for more info): Nutritional Asmnt/Malnutrition Start: 08/24/18 09: 49 Text: Status: Complete Freq: Protocol: Document 08/24/18 09:50 ERWIN (Rec: 08/24/18 09:54 ERWIN ANGUIANO- FNS1) Nutritional Asmnt/Malnutrition Patient General Information Diagnosis psychosis Pertinent Medical Hx/Surgical Hx HTN, CVA, TIA, dyslipidemia, PAd, GERD, dementia Subjective Information Pt asleep at time of visit Current Diet Order/ Nutrition Support mechanical soft chopped Pertinent Medications bisacodyl, coalce, pepcid, MOM , sucrafate Pertinent Labs 08/20: Na 140, K 4.3, Cl 105, CO2 27, BUN 25, Cr 1.7, Ca 8.4 , glucose 86 Nutritional Hx/Data Height 1.75 m Height (Calculated Centimeters) 175.3 Current Weight (lbs) 81.647 kg Weight (Calculated Kilograms) 81.6 Weight (Calculated Grams) 43715.6 Body Mass Index (BMI) 26.6 Weight Status Underweight GI Symptoms GI Symptoms None Last BM 08/23 Cultural/Ethnic/Pentecostal Belief unknown Usual diet at home mechanical soft chopped Skin Integrity/Comment: timothy score 15 Estimated Nutritional Goals BEE in Kcals: Using Current wt Calories/Kcals/Kg 25-30kcals/kg Kcals Calculated 2049-246kcals/day Protein: Using Current wt Protein g/kg: ~1g/kg Protein Calculated ~82kg/day Fluid: ml per MD Nutritional Problem 1. Problem Problem No nutrition diagnosis at this time Intervention/Recommendation Comments Recommend continuing ALEXANDER Mechancial soft diet Expected Outcomes/Goals Expected Outcomes/Goals PO intake >75% of meals
--- NOTE | 2018-08-25 13:31 | Progress Notes ---
DATE: 08/25/2018 PSYCHIATRIC PROGRESS NOTE PROGRESS ON THE UNIT: Staff was spoken to. The patient is interviewed, noted to be irritable. Affect is constricted. The patient has mood swings, but denies any command hallucinations at this time. No side effects to the medications are noted. ASSESSMENT: The patient is still impulsive. PLAN: To continue the patient with supportive therapy. I encouraged the patient to verbalize the concerns rather than to act out. JOB# [id number]
--- NOTE | 2018-08-25 14:59 | Internal Medicine Prog Note ---
Internal Medicine Subjective - Subjective Patient seen and examined:: with staff, chart reviewed Patient is:: awake, interactive, confused, other (depressed,impulsive ) Patient Complaints of:: other (depression ) Per staff patient has:: no adverse event, tolerating meds Internal Medicine Objective - Results Result Diagrams: 08/20/18 16:49 08/20/18 16:49 Recent Labs: Laboratory Last Values WBC 3.9 Th/cmm (4.8-10.8) L 08/20/18 16:49 RBC 4.88 Mil/cmm (3.80-5.80) 08/20/18 16:49 Hgb 14.7 gm/dL (12-16) 08/20/18 16:49 Hct 44.3 % (41.0-60) 08/20/18 16:49 MCV 90.7 fl (80-99) 08/20/18 16:49 MCH 30.1 pg (27.0-31.0) 08/20/18 16:49 MCHC Differential 33.3 pg (28.0-36.0) 08/20/18 16:49 RDW 13.8 % (11.5-20.0) 08/20/18 16:49 Plt Count 65 Th/cmm (150-400) L 08/20/18 16:49 MPV 8.3 fl 08/20/18 16:49 Neutrophils % 40.1 % (40.0-80.0) 08/20/18 16:49 Lymphocytes % 44.2 % (20.0-50.0) 08/20/18 16:49 Monocytes % 10.9 % (2.0-10.0) H 08/20/18 16:49 Eosinophils % 4.0 % (0.0-5.0) 08/20/18 16:49 Basophils % 0.8 % (0.0-2.0) 08/20/18 16:49 Sodium 140 mEq/L (136-145) 08/20/18 16:49 Potassium 4.3 mEq/L (3.5-5.1) 08/20/18 16:49 Chloride 105 mEq/L (98-107) 08/20/18 16:49 Carbon Dioxide 27.0 mEq/L (21.0-31.0) 08/20/18 16:49 Anion Gap 12.3 (7.0-16.0) 08/20/18 16:49 BUN 25 mg/dL (7-25) 08/20/18 16:49 Creatinine 1.7 mg/dL (0.7-1.3) H 08/20/18 16:49 Est GFR ( Amer) 52.3 ml/min (>90) 08/20/18 16:49 Est GFR (Non-Af Amer) 43.2 ml/min 08/20/18 16:49 BUN/Creatinine Ratio 14.7 08/20/18 16:49 Glucose 86 mg/dL (70-105) 08/20/18 16:49 Whole Bld Lactic Acid 1.38 mmol/L (0.60-1.99) 08/20/18 17:01 Calcium 8.4 mg/dL (8.6-10.3) L 08/20/18 16:49 Total Bilirubin 0.5 mg/dL (0.3-1.0) 08/20/18 16:49 AST 107 U/L (13-39) H 08/20/18 16:49 ALT 79 U/L (7-52) H 08/20/18 16:49 Alkaline Phosphatase 73 U/L (34-104) 08/20/18 16:49 Troponin I 0.02 ng/mL (0.01-0.05) 08/20/18 16:49 Total Protein 6.5 gm/dL (6.0-8.3) 08/20/18 16:49 Albumin 3.1 gm/dL (4.2-5.5) L 08/20/18 16:49 Globulin 3.4 gm/dL 08/20/18 16:49 Albumin/Globulin Ratio 0.9 (1.0-1.8) L 08/20/18 16:49 Triglycerides 103 mg/dL (<150) 08/20/18 16:49 Cholesterol 155 mg/dL (<200) 08/20/18 16:49 LDL Cholesterol Direct 107 mg/dL (75-193) 08/20/18 16:49 HDL Cholesterol 25 mg/dL (23-92) 08/20/18 16:49 TSH 9.36 uIU/ml (0.34-5.60) H 08/20/18 16:49 Digoxin 0.7 ng/ml (0.8-2.0) L 08/20/18 16:45 Salicylates < 25.0 mg/L (30.0-100.0) L 08/20/18 16:49 Acetaminophen < 10.0 ug/mL (10.0-30.0) L 08/20/18 16:49 Ethyl Alcohol < 10 mg/dL (0-10) 08/20/18 16:49 RPR NONREACTIVE (NONREACTIVE) 08/20/18 16:49 Hepatitis A IgM Ab Negative (Negative) 08/22/18 16:55 Hep Bs Antigen Negative (Negative) 08/22/18 16:55 Hep B Core IgM Ab Negative (Negative) 08/22/18 16:55 Hepatitis C Antibody >11.0 s/co ratio (0.0-0.9) H 08/22/18 16:55 - Physical Exam Vitals and I&O: Vital Signs Temp 96.4 F 08/25/18 14:48 Pulse 59 08/25/18 14:48 Resp 20 08/25/18 14:48 BP 114/63 08/25/18 14:48 Pulse Ox 95 08/25/18 14:48 Intake & Output 08/24/18 08/25/18 08/25/18 18:59 06:59 18:59 Intake Total 1200 240 Balance 1200 240 Intake: Oral 1200 240 Other: # Voids 2 # Bowel Movements 2 Active Medications: Current Medications Acetaminophen (Tylenol) 650 mg PO Q4HR PRN PRN Reason: PAIN Stop: 10/19/18 20:23 Amiodarone HCl (Cordarone) 200 mg PO BID [facility] Stop: 10/20/18 08:59 Last Admin: 08/25/18 08:45 Dose: Not Given Bisacodyl (Dulcolax 10 Mg Supp) 10 mg RC DAILY PRN PRN Reason: IF MOM INEFFECTIVE Stop: 10/19/18 20:23 Digoxin (Lanoxin) 0.125 mg [place] [facility]: 10/20/18 08:59 Last Admin: 08/23/18 10:30 Dose: Not Given Divalproex Sodium (Depakote Dr) 250 mg PO Q12HR [facility]; Protocol Stop: 10/19/18 20:59 Last Admin: 08/25/18 08:45 Dose: 250 mg Docusate Sodium (Colace) 100 mg PO DAILY [facility] Stop: 10/20/18 08:59 Last Admin: 08/25/18 08:46 Dose: 100 mg Famotidine (Pepcid) 20 mg PO BID [facility] Stop: 10/20/18 08:59 Last Admin: 08/25/18 08:46 Dose: 20 mg Lorazepam (Ativan) 0.5 mg PO Q4HR PRN; Protocol PRN Reason: Anxiety Stop: 09/19/18 20:42 Magnesium Hydroxide (Milk Of Magnesia) 30 ml PO DAILY PRN PRN Reason: BOWEL MAINTENANCE Stop: 10/19/18 20:23 Mirtazapine (Remeron) 30 mg PO HS [facility]; Protocol Stop: 10/19/18 20:59 Last Admin: 08/24/18 20:58 Dose: 30 mg Rivaroxaban (Xarelto) 10 mg PO DAILY [facility] Stop: 10/22/18 08:59 Last Admin: 08/25/18 08:46 Dose: 10 mg Sucralfate (Carafate) 1 gm PO ACHS [facility] Stop: 10/19/18 20:59 Last Admin: 08/25/18 11:49 Dose: Not Given Zolpidem Tartrate (Ambien) 5 mg PO HS PRN PRN Reason: Insomnia Stop: 10/19/18 20:42 Last Admin: 08/24/18 20:58 Dose: 5 mg General: weak, demented HEENT: NC/AT Neck: Supple Lungs: CTAB Cardiovascular: Normal S1, Normal S2 Abdomen: soft, non-tender Extremities: excoriation Neurological: no change, disorganized Internal Medicine Assmt/Plan - Assessment Assessment: - Assessment Assessment: depression thrombocytopenia htn hx cva tia dyslipidemia - Plan Plan: fall precautions follow up cbc in am continue current plan of care - Plan Plan: cpm claus rn Nutritional Asmnt/Malnutr-PDOC - Dietary Evaluation Malnutrition Findings (Please click <Entered> for more info): Nutritional Asmnt/Malnutrition Start: 08/24/18 09: 49 Text: Status: Complete Freq: Protocol: Document 08/24/18 09:50 ERWIN (Rec: 08/24/18 09:54 ERWIN ANGUIANO- FNS1) Nutritional Asmnt/Malnutrition Patient General Information Diagnosis psychosis Pertinent Medical Hx/Surgical Hx HTN, CVA, TIA, dyslipidemia, PAd, GERD, dementia Subjective Information Pt asleep at time of visit Current Diet Order/ Nutrition Support mechanical soft chopped Pertinent Medications bisacodyl, coalce, pepcid, MOM , sucrafate Pertinent Labs 08/20: Na 140, K 4.3, Cl 105, CO2 27, BUN 25, Cr 1.7, Ca 8.4 , glucose 86 Nutritional Hx/Data Height 1.75 m Height (Calculated Centimeters) 175.3 Current Weight (lbs) 81.647 kg Weight (Calculated Kilograms) 81.6 Weight (Calculated Grams) 53393.6 Body Mass Index (BMI) 26.6 Weight Status Underweight GI Symptoms GI Symptoms None Last BM 08/23 Cultural/Ethnic/Orthodoxy Belief unknown Usual diet at home mechanical soft chopped Skin Integrity/Comment: timothy score 15 Estimated Nutritional Goals BEE in Kcals: Using Current wt Calories/Kcals/Kg 25-30kcals/kg Kcals Calculated 0-2460kcals/day Protein: Using Current wt Protein g/kg: ~1g/kg Protein Calculated ~82kg/day Fluid: ml per MD Nutritional Problem 1. Problem Problem No nutrition diagnosis at this time Intervention/Recommendation Comments Recommend continuing ALEXANDER Mech[employer] soft diet Expected Outcomes/Goals Expected Outcomes/Goals PO intake >75% of meals
[2018-08-26] MEDS: Multivitamin w/ Minerals Tab PO SCH (09:11)
--- NOTE | 2018-08-26 13:59 | Internal Medicine Prog Note ---
Internal Medicine Subjective - Subjective Service Date: 08/26/18 Patient is:: awake, interactive, confused, other (depressed,impulsive ) Patient Complaints of:: other (depression ) Per staff patient has:: no adverse event, tolerating meds Internal Medicine Objective - Results Result Diagrams: 08/20/18 16:49 08/20/18 16:49 Recent Labs: Laboratory Last Values WBC 3.9 Th/cmm (4.8-10.8) L 08/20/18 16:49 RBC 4.88 Mil/cmm (3.80-5.80) 08/20/18 16:49 Hgb 14.7 gm/dL (12-16) 08/20/18 16:49 Hct 44.3 % (41.0-60) 08/20/18 16:49 MCV 90.7 fl (80-99) 08/20/18 16:49 MCH 30.1 pg (27.0-31.0) 08/20/18 16:49 MCHC Differential 33.3 pg (28.0-36.0) 08/20/18 16:49 RDW 13.8 % (11.5-20.0) 08/20/18 16:49 Plt Count 65 Th/cmm (150-400) L 08/20/18 16:49 MPV 8.3 fl 08/20/18 16:49 Neutrophils % 40.1 % (40.0-80.0) 08/20/18 16:49 Lymphocytes % 44.2 % (20.0-50.0) 08/20/18 16:49 Monocytes % 10.9 % (2.0-10.0) H 08/20/18 16:49 Eosinophils % 4.0 % (0.0-5.0) 08/20/18 16:49 Basophils % 0.8 % (0.0-2.0) 08/20/18 16:49 Sodium 140 mEq/L (136-145) 08/20/18 16:49 Potassium 4.3 mEq/L (3.5-5.1) 08/20/18 16:49 Chloride 105 mEq/L (98-107) 08/20/18 16:49 Carbon Dioxide 27.0 mEq/L (21.0-31.0) 08/20/18 16:49 Anion Gap 12.3 (7.0-16.0) 08/20/18 16:49 BUN 25 mg/dL (7-25) 08/20/18 16:49 Creatinine 1.7 mg/dL (0.7-1.3) H 08/20/18 16:49 Est GFR ( Amer) 52.3 ml/min (>90) 08/20/18 16:49 Est GFR (Non-Af Amer) 43.2 ml/min 08/20/18 16:49 BUN/Creatinine Ratio 14.7 08/20/18 16:49 Glucose 86 mg/dL (70-105) 08/20/18 16:49 Whole Bld Lactic Acid 1.38 mmol/L (0.60-1.99) 08/20/18 17:01 Calcium 8.4 mg/dL (8.6-10.3) L 08/20/18 16:49 Total Bilirubin 0.5 mg/dL (0.3-1.0) 08/20/18 16:49 AST 107 U/L (13-39) H 08/20/18 16:49 ALT 79 U/L (7-52) H 08/20/18 16:49 Alkaline Phosphatase 73 U/L (34-104) 08/20/18 16:49 Troponin I 0.02 ng/mL (0.01-0.05) 08/20/18 16:49 Total Protein 6.5 gm/dL (6.0-8.3) 08/20/18 16:49 Albumin 3.1 gm/dL (4.2-5.5) L 08/20/18 16:49 Globulin 3.4 gm/dL 08/20/18 16:49 Albumin/Globulin Ratio 0.9 (1.0-1.8) L 08/20/18 16:49 Triglycerides 103 mg/dL (<150) 08/20/18 16:49 Cholesterol 155 mg/dL (<200) 08/20/18 16:49 LDL Cholesterol Direct 107 mg/dL (75-193) 08/20/18 16:49 HDL Cholesterol 25 mg/dL (23-92) 08/20/18 16:49 TSH 9.36 uIU/ml (0.34-5.60) H 08/20/18 16:49 Digoxin 0.7 ng/ml (0.8-2.0) L 08/20/18 16:45 Salicylates < 25.0 mg/L (30.0-100.0) L 08/20/18 16:49 Acetaminophen < 10.0 ug/mL (10.0-30.0) L 08/20/18 16:49 Ethyl Alcohol < 10 mg/dL (0-10) 08/20/18 16:49 RPR NONREACTIVE (NONREACTIVE) 08/20/18 16:49 Hepatitis A IgM Ab Negative (Negative) 08/22/18 16:55 Hep Bs Antigen Negative (Negative) 08/22/18 16:55 Hep B Core IgM Ab Negative (Negative) 08/22/18 16:55 Hepatitis C Antibody >11.0 s/co ratio (0.0-0.9) H 08/22/18 16:55 - Physical Exam Vitals and I&O: Vital Signs Temp 98.0 F 08/26/18 06:22 Pulse 68 08/26/18 09:09 Resp 19 08/26/18 06:22 BP 150/82 08/26/18 06:22 Pulse Ox 92 08/26/18 06:22 Intake & Output 08/25/18 08/26/18 08/26/18 18:59 06:59 18:59 Intake Total 1200 360 Output Total 1 Balance 1200 359 Intake: Oral 1200 360 Output: Urine/Stool Mix 1 Other: # Voids 2 # Bowel Movements 3 1 Active Medications: Current Medications Acetaminophen (Tylenol) 650 mg PO Q4HR PRN PRN Reason: PAIN Stop: 10/19/18 20:23 Amiodarone HCl (Cordarone) 200 mg PO BID [facility] Stop: 10/20/18 08:59 Last Admin: 08/26/18 09:09 Dose: 200 mg Bisacodyl (Dulcolax 10 Mg Supp) 10 mg RC DAILY PRN PRN Reason: IF MOM INEFFECTIVE Stop: 10/19/18 20:23 Digoxin (Lanoxin) 0.125 mg PO MWF [facility] Stop: 10/20/18 08:59 Last Admin: 08/26/18 09:09 Dose: 0.125 mg Divalproex Sodium (Depakote Dr) 250 mg PO Q12HR [facility]; Protocol Stop: 10/19/18 20:59 Last Admin: 08/26/18 09:09 Dose: 250 mg Docusate Sodium (Colace) 100 mg PO DAILY [facility] Stop: 10/20/18 08:59 Last Admin: 08/26/18 09:09 Dose: 100 mg Famotidine (Pepcid) 20 mg PO BID [facility] Stop: 10/20/18 08:59 Last Admin: 08/26/18 09:11 Dose: 20 mg Lorazepam (Ativan) 0.5 mg PO Q4HR PRN; Protocol PRN Reason: Anxiety Stop: 09/19/18 20:42 Magnesium Hydroxide (Milk Of Magnesia) 30 ml PO DAILY PRN PRN Reason: BOWEL MAINTENANCE Stop: 10/19/18 20:23 Mirtazapine (Remeron) 30 mg PO HS [facility]; Protocol Stop: 10/19/18 20:59 Last Admin: 08/25/18 20:39 Dose: 30 mg Rivaroxaban (Xarelto) 10 mg PO DAILY [facility] Stop: 10/22/18 08:59 Last Admin: 08/26/18 09:11 Dose: 10 mg Sucralfate (Carafate) 1 gm PO ACHS [facility] Stop: 10/19/18 20:59 Last Admin: 08/26/18 06:32 Dose: 1 gm Zolpidem Tartrate (Ambien) 5 mg PO HS PRN PRN Reason: Insomnia Stop: 10/19/18 20:42 Last Admin: 08/24/18 20:58 Dose: 5 mg General: weak, demented HEENT: NC/AT Neck: Supple Lungs: CTAB Cardiovascular: Normal S1, Normal S2 Abdomen: soft, non-tender Extremities: excoriation Neurological: no change, disorganized Internal Medicine Assmt/Plan - Assessment Assessment: depression thrombocytopenia htn hx cva tia dyslipidemia - Plan Plan: fall precautions follow up cbc in am continue current plan of care Nutritional Asmnt/Malnutr-PDOC - Dietary Evaluation Malnutrition Findings (Please click <Entered> for more info): Nutritional Asmnt/Malnutrition Start: 08/24/18 09: 49 Text: Status: Complete Freq: Protocol: Document 08/24/18 09:50 ERWIN (Rec: 08/24/18 09:54 ERWIN ANGUIANO- FNS1) Nutritional Asmnt/Malnutrition Patient General Information Diagnosis psychosis Pertinent Medical Hx/Surgical Hx HTN, CVA, TIA, dyslipidemia, PAd, GERD, dementia Subjective Information Pt asleep at time of visit Current Diet Order/ Nutrition Support mechanical soft chopped Pertinent Medications bisacodyl, coalce, pepcid, MOM , sucrafate Pertinent Labs 08/20: Na 140, K 4.3, Cl 105, CO2 27, BUN 25, Cr 1.7, Ca 8.4 , glucose 86 Nutritional Hx/Data Height 5 ft 9 in Height (Calculated Centimeters) 175.3 Current Weight (lbs) 180 lb Weight (Calculated Kilograms) 81.6 Weight (Calculated Grams) 80523.6 Body Mass Index (BMI) 26.6 Weight Status Underweight GI Symptoms GI Symptoms None Last BM 08/23 Cultural/Ethnic/Gnosticist Belief unknown Usual diet at home mechanical soft chopped Skin Integrity/Comment: timothy score 15 Estimated Nutritional Goals BEE in Kcals: Using Current wt Calories/Kcals/Kg 25-30kcals/kg Kcals Calculated 2049-246kcals/day Protein: Using Current wt Protein g/kg: ~1g/kg Protein Calculated ~82kg/day Fluid: ml per MD Nutritional Problem 1. Problem Problem No nutrition diagnosis at this time Intervention/Recommendation Comments Recommend continuing ALEXANDER Mechancial soft diet Expected Outcomes/Goals Expected Outcomes/Goals PO intake >75% of meals
--- NOTE | 2018-08-27 05:11 | Progress Notes ---
DATE: 08/26/2018 SUBJECTIVE: Staff was spoken to. The patient is interviewed. Mood is noted to be irritable. Affect is constricted. Insight and judgment at this time are noted to be still impaired. Impulse control is noted to be limited. Coping skills are noted to be limited. The patient has been having difficult time to cope with the stress. No side effects to the medications are noted. The patient has been able to tolerate the medication so far. ASSESSMENT: The patient is still impulsive. PLAN: To continue the patient with the supportive therapy, encouraged the patient to verbalize the concerns rather than to act out. JOB# [id number]
[2018-08-27] MEDS: Multivitamin w/ Minerals Tab PO SCH (09:36)
--- NOTE | 2018-08-27 13:28 | Internal Medicine Prog Note ---
Internal Medicine Subjective - Subjective Service Date: 08/27/18 Patient is:: awake, interactive, confused, other (depressed,impulsive ) Patient Complaints of:: other (depression ) Per staff patient has:: no adverse event, tolerating meds Internal Medicine Objective - Results Result Diagrams: 08/20/18 16:49 08/20/18 16:49 Recent Labs: Laboratory Last Values WBC 3.9 Th/cmm (4.8-10.8) L 08/20/18 16:49 RBC 4.88 Mil/cmm (3.80-5.80) 08/20/18 16:49 Hgb 14.7 gm/dL (12-16) 08/20/18 16:49 Hct 44.3 % (41.0-60) 08/20/18 16:49 MCV 90.7 fl (80-99) 08/20/18 16:49 MCH 30.1 pg (27.0-31.0) 08/20/18 16:49 MCHC Differential 33.3 pg (28.0-36.0) 08/20/18 16:49 RDW 13.8 % (11.5-20.0) 08/20/18 16:49 Plt Count 65 Th/cmm (150-400) L 08/20/18 16:49 MPV 8.3 fl 08/20/18 16:49 Neutrophils % 40.1 % (40.0-80.0) 08/20/18 16:49 Lymphocytes % 44.2 % (20.0-50.0) 08/20/18 16:49 Monocytes % 10.9 % (2.0-10.0) H 08/20/18 16:49 Eosinophils % 4.0 % (0.0-5.0) 08/20/18 16:49 Basophils % 0.8 % (0.0-2.0) 08/20/18 16:49 Sodium 140 mEq/L (136-145) 08/20/18 16:49 Potassium 4.3 mEq/L (3.5-5.1) 08/20/18 16:49 Chloride 105 mEq/L (98-107) 08/20/18 16:49 Carbon Dioxide 27.0 mEq/L (21.0-31.0) 08/20/18 16:49 Anion Gap 12.3 (7.0-16.0) 08/20/18 16:49 BUN 25 mg/dL (7-25) 08/20/18 16:49 Creatinine 1.7 mg/dL (0.7-1.3) H 08/20/18 16:49 Est GFR ( Amer) 52.3 ml/min (>90) 08/20/18 16:49 Est GFR (Non-Af Amer) 43.2 ml/min 08/20/18 16:49 BUN/Creatinine Ratio 14.7 08/20/18 16:49 Glucose 86 mg/dL (70-105) 08/20/18 16:49 Whole Bld Lactic Acid 1.38 mmol/L (0.60-1.99) 08/20/18 17:01 Calcium 8.4 mg/dL (8.6-10.3) L 08/20/18 16:49 Total Bilirubin 0.5 mg/dL (0.3-1.0) 08/20/18 16:49 AST 107 U/L (13-39) H 08/20/18 16:49 ALT 79 U/L (7-52) H 08/20/18 16:49 Alkaline Phosphatase 73 U/L (34-104) 08/20/18 16:49 Troponin I 0.02 ng/mL (0.01-0.05) 08/20/18 16:49 Total Protein 6.5 gm/dL (6.0-8.3) 08/20/18 16:49 Albumin 3.1 gm/dL (4.2-5.5) L 08/20/18 16:49 Globulin 3.4 gm/dL 08/20/18 16:49 Albumin/Globulin Ratio 0.9 (1.0-1.8) L 08/20/18 16:49 Triglycerides 103 mg/dL (<150) 08/20/18 16:49 Cholesterol 155 mg/dL (<200) 08/20/18 16:49 LDL Cholesterol Direct 107 mg/dL (75-193) 08/20/18 16:49 HDL Cholesterol 25 mg/dL (23-92) 08/20/18 16:49 TSH 9.36 uIU/ml (0.34-5.60) H 08/20/18 16:49 Digoxin 0.7 ng/ml (0.8-2.0) L 08/20/18 16:45 Salicylates < 25.0 mg/L (30.0-100.0) L 08/20/18 16:49 Acetaminophen < 10.0 ug/mL (10.0-30.0) L 08/20/18 16:49 Ethyl Alcohol < 10 mg/dL (0-10) 08/20/18 16:49 RPR NONREACTIVE (NONREACTIVE) 08/20/18 16:49 Hepatitis A IgM Ab Negative (Negative) 08/22/18 16:55 Hep Bs Antigen Negative (Negative) 08/22/18 16:55 Hep B Core IgM Ab Negative (Negative) 08/22/18 16:55 Hepatitis C Antibody >11.0 s/co ratio (0.0-0.9) H 08/22/18 16:55 - Physical Exam Vitals and I&O: Vital Signs Temp 99.8 F 08/27/18 06:27 Pulse 65 08/27/18 06:27 Resp 18 08/27/18 06:27 BP 120/62 08/27/18 06:27 Pulse Ox 93 08/27/18 06:27 Intake & Output 08/26/18 08/27/18 08/27/18 18:59 06:59 18:59 Intake Total 240 Balance 240 Intake: Oral 240 Other: # Voids 2 Active Medications: Current Medications Acetaminophen (Tylenol) 650 mg PO Q4HR PRN PRN Reason: PAIN Stop: 10/19/18 20:23 Amiodarone HCl (Cordarone) 200 mg PO BID [facility] Stop: 10/20/18 08:59 Last Admin: 08/27/18 09:36 Dose: Not Given Bisacodyl (Dulcolax 10 Mg Supp) 10 mg RC DAILY PRN PRN Reason: IF MOM INEFFECTIVE Stop: 10/19/18 20:23 Digoxin (Lanoxin) 0.125 mg PO MWF [facility] Stop: 10/20/18 08:59 Last Admin: 08/26/18 09:09 Dose: 0.125 mg Divalproex Sodium (Depakote Dr) 250 mg PO Q12HR [facility]; Protocol Stop: 10/19/18 20:59 Last Admin: 08/27/18 09:36 Dose: 250 mg Docusate Sodium (Colace) 100 mg PO DAILY [facility] Stop: 10/20/18 08:59 Last Admin: 08/27/18 09:36 Dose: 100 mg Famotidine (Pepcid) 20 mg PO BID [facility] Stop: 10/20/18 08:59 Last Admin: 08/27/18 09:36 Dose: 20 mg Lorazepam (Ativan) 0.5 mg PO Q4HR PRN; Protocol PRN Reason: Anxiety Stop: 09/19/18 20:42 Magnesium Hydroxide (Milk Of Magnesia) 30 ml PO DAILY PRN PRN Reason: BOWEL MAINTENANCE Stop: 10/19/18 20:23 Mirtazapine (Remeron) 30 mg PO HS [facility]; Protocol Stop: 10/19/18 20:59 Last Admin: 08/26/18 21:12 Dose: 30 mg Rivaroxaban (Xarelto) 10 mg PO DAILY [facility] Stop: 10/22/18 08:59 Last Admin: 08/27/18 09:36 Dose: 10 mg Sucralfate (Carafate) 1 gm PO ACHS [facility] Stop: 10/19/18 20:59 Last Admin: 08/27/18 06:31 Dose: 1 gm Zolpidem Tartrate (Ambien) 5 mg PO HS PRN PRN Reason: Insomnia Stop: 10/19/18 20:42 Last Admin: 08/24/18 20:58 Dose: 5 mg General: weak, demented HEENT: NC/AT Neck: Supple Lungs: CTAB Cardiovascular: Normal S1, Normal S2 Abdomen: soft, non-tender Extremities: excoriation Neurological: no change, disorganized Internal Medicine Assmt/Plan - Assessment Assessment: depression thrombocytopenia htn hx cva tia dyslipidemia - Plan Plan: fall precautions follow up cbc in am continue current plan of care Nutritional Asmnt/Malnutr-PDOC - Dietary Evaluation Malnutrition Findings (Please click <Entered> for more info): Nutritional Asmnt/Malnutrition Start: 08/24/18 09: 49 Text: Status: Complete Freq: Protocol: Document 08/24/18 09:50 ERWIN (Rec: 08/24/18 09:54 ERWIN ANGUIANO- FNS1) Nutritional Asmnt/Malnutrition Patient General Information Diagnosis psychosis Pertinent Medical Hx/Surgical Hx HTN, CVA, TIA, dyslipidemia, PAd, GERD, dementia Subjective Information Pt asleep at time of visit Current Diet Order/ Nutrition Support mechanical soft chopped Pertinent Medications bisacodyl, coalce, pepcid, MOM , sucrafate Pertinent Labs 08/20: Na 140, K 4.3, Cl 105, CO2 27, BUN 25, Cr 1.7, Ca 8.4 , glucose 86 Nutritional Hx/Data Height 5 ft 9 in Height (Calculated Centimeters) 175.3 Current Weight (lbs) 180 lb Weight (Calculated Kilograms) 81.6 Weight (Calculated Grams) 61736.6 Body Mass Index (BMI) 26.6 Weight Status Underweight GI Symptoms GI Symptoms None Last BM 08/23 Cultural/Ethnic/Islam Belief unknown Usual diet at home mechanical soft chopped Skin Integrity/Comment: timothy score 15 Estimated Nutritional Goals BEE in Kcals: Using Current wt Calories/Kcals/Kg 25-30kcals/kg Kcals Calculated 2049-246kcals/day Protein: Using Current wt Protein g/kg: ~1g/kg Protein Calculated ~82kg/day Fluid: ml per MD Nutritional Problem 1. Problem Problem No nutrition diagnosis at this time Intervention/Recommendation Comments Recommend continuing ALEXANDER Mechancial soft diet Expected Outcomes/Goals Expected Outcomes/Goals PO intake >75% of meals
--- NOTE | 2018-08-28 03:15 | Progress Notes ---
DATE: 08/27/2018 PSYCHIATRIC PROGRESS NOTE SUBJECTIVE: Staff was spoken to. The patient is interviewed. Mood is noted to be irritable. Affect is constricted. The patient is getting easily irritable, but the patient; however, could be redirected. No psychotic symptoms are noted today. Sleep and appetite are noted to be improving at this time. No side effects to the medications are noted. ASSESSMENT: The patient is still impulsive. PLAN: To continue the patient with the supportive therapy. I encouraged the patient to verbalize the concerns rather than to act out. JOB# [id number]
[2018-08-28] MEDS: Multivitamin w/ Minerals Tab PO SCH (08:45)
--- NOTE | 2018-08-28 10:01 | Progress Notes ---
DATE: 08/28/2018 SUBJECTIVE: Staff was spoken to. The patient is interviewed. Mood is noted to be less irritable. Affect is appropriate. The patient is isolative and withdrawn. No major behavioral problems are noted today. The patient's sleep and appetite are improving. No side effects to the medications are noted. ASSESSMENT: The patient's impulsivity is resolving. PLAN: To continue the patient with the supportive therapy and if things work out, possibly the patient is going to be discharged tomorrow for followup on an outpatient basis. JOB# [id number]
--- NOTE | 2018-08-28 11:57 | Internal Medicine Prog Note ---
Internal Medicine Subjective - Subjective Service Date: 08/28/18 Patient is:: awake, interactive, confused, other (depressed,impulsive ) Patient Complaints of:: other (depression ) Per staff patient has:: no adverse event, tolerating meds Internal Medicine Objective - Results Result Diagrams: 08/20/18 16:49 08/20/18 16:49 Recent Labs: Laboratory Last Values WBC 3.9 Th/cmm (4.8-10.8) L 08/20/18 16:49 RBC 4.88 Mil/cmm (3.80-5.80) 08/20/18 16:49 Hgb 14.7 gm/dL (12-16) 08/20/18 16:49 Hct 44.3 % (41.0-60) 08/20/18 16:49 MCV 90.7 fl (80-99) 08/20/18 16:49 MCH 30.1 pg (27.0-31.0) 08/20/18 16:49 MCHC Differential 33.3 pg (28.0-36.0) 08/20/18 16:49 RDW 13.8 % (11.5-20.0) 08/20/18 16:49 Plt Count 65 Th/cmm (150-400) L 08/20/18 16:49 MPV 8.3 fl 08/20/18 16:49 Neutrophils % 40.1 % (40.0-80.0) 08/20/18 16:49 Lymphocytes % 44.2 % (20.0-50.0) 08/20/18 16:49 Monocytes % 10.9 % (2.0-10.0) H 08/20/18 16:49 Eosinophils % 4.0 % (0.0-5.0) 08/20/18 16:49 Basophils % 0.8 % (0.0-2.0) 08/20/18 16:49 Sodium 140 mEq/L (136-145) 08/20/18 16:49 Potassium 4.3 mEq/L (3.5-5.1) 08/20/18 16:49 Chloride 105 mEq/L (98-107) 08/20/18 16:49 Carbon Dioxide 27.0 mEq/L (21.0-31.0) 08/20/18 16:49 Anion Gap 12.3 (7.0-16.0) 08/20/18 16:49 BUN 25 mg/dL (7-25) 08/20/18 16:49 Creatinine 1.7 mg/dL (0.7-1.3) H 08/20/18 16:49 Est GFR ( Amer) 52.3 ml/min (>90) 08/20/18 16:49 Est GFR (Non-Af Amer) 43.2 ml/min 08/20/18 16:49 BUN/Creatinine Ratio 14.7 08/20/18 16:49 Glucose 86 mg/dL (70-105) 08/20/18 16:49 Whole Bld Lactic Acid 1.38 mmol/L (0.60-1.99) 08/20/18 17:01 Calcium 8.4 mg/dL (8.6-10.3) L 08/20/18 16:49 Total Bilirubin 0.5 mg/dL (0.3-1.0) 08/20/18 16:49 AST 107 U/L (13-39) H 08/20/18 16:49 ALT 79 U/L (7-52) H 08/20/18 16:49 Alkaline Phosphatase 73 U/L (34-104) 08/20/18 16:49 Troponin I 0.02 ng/mL (0.01-0.05) 08/20/18 16:49 Total Protein 6.5 gm/dL (6.0-8.3) 08/20/18 16:49 Albumin 3.1 gm/dL (4.2-5.5) L 08/20/18 16:49 Globulin 3.4 gm/dL 08/20/18 16:49 Albumin/Globulin Ratio 0.9 (1.0-1.8) L 08/20/18 16:49 Triglycerides 103 mg/dL (<150) 08/20/18 16:49 Cholesterol 155 mg/dL (<200) 08/20/18 16:49 LDL Cholesterol Direct 107 mg/dL (75-193) 08/20/18 16:49 HDL Cholesterol 25 mg/dL (23-92) 08/20/18 16:49 TSH 9.36 uIU/ml (0.34-5.60) H 08/20/18 16:49 Digoxin 0.7 ng/ml (0.8-2.0) L 08/20/18 16:45 Salicylates < 25.0 mg/L (30.0-100.0) L 08/20/18 16:49 Acetaminophen < 10.0 ug/mL (10.0-30.0) L 08/20/18 16:49 Ethyl Alcohol < 10 mg/dL (0-10) 08/20/18 16:49 RPR NONREACTIVE (NONREACTIVE) 08/20/18 16:49 Hepatitis A IgM Ab Negative (Negative) 08/22/18 16:55 Hep Bs Antigen Negative (Negative) 08/22/18 16:55 Hep B Core IgM Ab Negative (Negative) 08/22/18 16:55 Hepatitis C Antibody >11.0 s/co ratio (0.0-0.9) H 08/22/18 16:55 - Physical Exam Vitals and I&O: Vital Signs Temp 97.6 F 08/28/18 06:27 Pulse 63 08/28/18 08:44 Resp 18 08/28/18 06:27 BP 126/86 08/28/18 06:27 Pulse Ox 95 08/28/18 06:27 Intake & Output 08/27/18 08/28/18 08/28/18 18:59 06:59 18:59 Intake Total 240 Balance 240 Intake: Oral 240 Other: # Voids 2 # Bowel Movements 0 Active Medications: Current Medications Acetaminophen (Tylenol) 650 mg PO Q4HR PRN PRN Reason: PAIN Stop: 10/19/18 20:23 Amiodarone HCl (Cordarone) 200 mg PO BID [facility] Stop: 10/20/18 08:59 Last Admin: 08/28/18 08:43 Dose: 200 mg Bisacodyl (Dulcolax 10 Mg Supp) 10 mg RC DAILY PRN PRN Reason: IF MOM INEFFECTIVE Stop: 10/19/18 20:23 Digoxin (Lanoxin) 0.125 mg PO MWF [facility] Stop: 10/20/18 08:59 Last Admin: 08/28/18 08:44 Dose: 0.125 mg Divalproex Sodium (Depakote Dr) 250 mg PO Q12HR [facility]; Protocol Stop: 10/19/18 20:59 Last Admin: 08/28/18 08:46 Dose: 250 mg Docusate Sodium (Colace) 100 mg PO DAILY [facility] Stop: 10/20/18 08:59 Last Admin: 08/28/18 08:47 Dose: 100 mg Famotidine (Pepcid) 20 mg PO BID [facility] Stop: 10/20/18 08:59 Last Admin: 08/28/18 08:47 Dose: 20 mg Lorazepam (Ativan) 0.5 mg PO Q4HR PRN; Protocol PRN Reason: Anxiety Stop: 09/19/18 20:42 Magnesium Hydroxide (Milk Of Magnesia) 30 ml PO DAILY PRN PRN Reason: BOWEL MAINTENANCE Stop: 10/19/18 20:23 Mirtazapine (Remeron) 30 mg PO HS [facility]; Protocol Stop: 10/19/18 20:59 Last Admin: 08/27/18 21:18 Dose: 30 mg Rivaroxaban (Xarelto) 10 mg PO DAILY [facility] Stop: 10/22/18 08:59 Last Admin: 08/28/18 08:48 Dose: 10 mg Sucralfate (Carafate) 1 gm PO ACHS [facility] Stop: 10/19/18 20:59 Last Admin: 08/28/18 10:53 Dose: 1 gm Zolpidem Tartrate (Ambien) 5 mg PO HS PRN PRN Reason: Insomnia Stop: 10/19/18 20:42 Last Admin: 08/24/18 20:58 Dose: 5 mg General: weak, demented HEENT: NC/AT Neck: Supple Lungs: CTAB Cardiovascular: Normal S1, Normal S2 Abdomen: soft, non-tender Extremities: excoriation Neurological: no change, disorganized Internal Medicine Assmt/Plan - Assessment Assessment: depression thrombocytopenia htn hx cva tia dyslipidemia - Plan Plan: fall precautions follow up cbc in am continue current plan of care Nutritional Asmnt/Malnutr-PDOC - Dietary Evaluation Malnutrition Findings (Please click <Entered> for more info): Nutritional Asmnt/Malnutrition Start: 08/24/18 09: 49 Text: Status: Complete Freq: Protocol: Document 08/24/18 09:50 ERWIN (Rec: 08/24/18 09:54 ERWIN ANGUIANO- FNS1) Nutritional Asmnt/Malnutrition Patient General Information Diagnosis psychosis Pertinent Medical Hx/Surgical Hx HTN, CVA, TIA, dyslipidemia, PAd, GERD, dementia Subjective Information Pt asleep at time of visit Current Diet Order/ Nutrition Support mechanical soft chopped Pertinent Medications bisacodyl, coalce, pepcid, MOM , sucrafate Pertinent Labs 08/20: Na 140, K 4.3, Cl 105, CO2 27, BUN 25, Cr 1.7, Ca 8.4 , glucose 86 Nutritional Hx/Data Height 5 ft 9 in Height (Calculated Centimeters) 175.3 Current Weight (lbs) 180 lb Weight (Calculated Kilograms) 81.6 Weight (Calculated Grams) 65385.6 Body Mass Index (BMI) 26.6 Weight Status Underweight GI Symptoms GI Symptoms None Last BM 08/23 Cultural/Ethnic/Episcopal Belief unknown Usual diet at home mechanical soft chopped Skin Integrity/Comment: timothy score 15 Estimated Nutritional Goals BEE in Kcals: Using Current wt Calories/Kcals/Kg 25-30kcals/kg Kcals Calculated 2049-2460kcals/day Protein: Using Current wt Protein g/kg: ~1g/kg Protein Calculated ~82kg/day Fluid: ml per MD Nutritional Problem 1. Problem Problem No nutrition diagnosis at this time Intervention/Recommendation Comments Recommend continuing ALEXANDER Mechancial soft diet Expected Outcomes/Goals Expected Outcomes/Goals PO intake >75% of meals
[2018-08-29] MEDS: Multivitamin w/ Minerals Tab PO SCH (08:53)
--- NOTE | 2018-08-29 11:15 | Discharge Summary ---
DATE OF DISCHARGE: 08/29/2018 PSYCHIATRIC DISCHARGE SUMMARY IDENTIFYING DATA: The patient is a 63-year-old male, a resident of [facility]. JUSTIFICATION OF HOSPITALIZATION: The patient is admitted on a voluntary basis in view of his depression and agitation. CHIEF COMPLAINT: "I am not feeling well." DIAGNOSES AT THE TIME OF ADMISSION: AXIS I: Major depressive disorder, recurrent, by history. AXIS II: None. AXIS III: As per Dr. Castillo. HISTORY OF PRESENT ILLNESS: Please refer to the 08/21/2018 dictation done by me. HOSPITAL COURSE AND RESPONSE TO TREATMENT: The patient's blood work has been reviewed and no major intervention was needed. Platelet count was noted to be very low at 65, WBC 3.9. Creatinine was noted to be 1.7. These labs were reviewed by Dr. Castillo. The patient's liver function tests are noted to be high at 107, 79. In view of this, Depakote has been discontinued and the patient has been closely monitored. During the hospitalization, the patient has been noted to be less irritable, no major behavioral problems are noted, and the patient started to do fairly well and the patient was finally discharged on 08/29/2018. MENTAL STATUS EXAMINATION AT THE TIME OF DISCHARGE: The patient was noted to be less irritable. Affect is appropriate. Not suicidal or homicidal. Insight and judgment are noted to be fair. Impulse control is also noted to be fair. The patient is not presenting with any threats to harm self or others. DIAGNOSES AT THE TIME OF DISCHARGE: AXIS I: Major depressive disorder, recurrent and moderate. AXIS II: None. AXIS III: As per Dr. Castillo. AFTERCARE PLAN: The patient is discharged to [facility] for followup on an outpatient basis. PROGNOSIS AT THE TIME OF THE DISCHARGE: Noted to be fair with the treatment. JOB# [id number]
--- NOTE | 2018-08-29 11:25 | Internal Medicine Prog Note ---
Internal Medicine Subjective - Subjective Service Date: 08/29/18 Patient is:: awake, interactive, confused, other (depressed,impulsive ) Patient Complaints of:: other (depression ) Per staff patient has:: no adverse event, tolerating meds Internal Medicine Objective - Results Result Diagrams: 08/20/18 16:49 08/20/18 16:49 Recent Labs: Laboratory Last Values WBC 3.9 Th/cmm (4.8-10.8) L 08/20/18 16:49 RBC 4.88 Mil/cmm (3.80-5.80) 08/20/18 16:49 Hgb 14.7 gm/dL (12-16) 08/20/18 16:49 Hct 44.3 % (41.0-60) 08/20/18 16:49 MCV 90.7 fl (80-99) 08/20/18 16:49 MCH 30.1 pg (27.0-31.0) 08/20/18 16:49 MCHC Differential 33.3 pg (28.0-36.0) 08/20/18 16:49 RDW 13.8 % (11.5-20.0) 08/20/18 16:49 Plt Count 65 Th/cmm (150-400) L 08/20/18 16:49 MPV 8.3 fl 08/20/18 16:49 Neutrophils % 40.1 % (40.0-80.0) 08/20/18 16:49 Lymphocytes % 44.2 % (20.0-50.0) 08/20/18 16:49 Monocytes % 10.9 % (2.0-10.0) H 08/20/18 16:49 Eosinophils % 4.0 % (0.0-5.0) 08/20/18 16:49 Basophils % 0.8 % (0.0-2.0) 08/20/18 16:49 Sodium 140 mEq/L (136-145) 08/20/18 16:49 Potassium 4.3 mEq/L (3.5-5.1) 08/20/18 16:49 Chloride 105 mEq/L (98-107) 08/20/18 16:49 Carbon Dioxide 27.0 mEq/L (21.0-31.0) 08/20/18 16:49 Anion Gap 12.3 (7.0-16.0) 08/20/18 16:49 BUN 25 mg/dL (7-25) 08/20/18 16:49 Creatinine 1.7 mg/dL (0.7-1.3) H 08/20/18 16:49 Est GFR ( Amer) 52.3 ml/min (>90) 08/20/18 16:49 Est GFR (Non-Af Amer) 43.2 ml/min 08/20/18 16:49 BUN/Creatinine Ratio 14.7 08/20/18 16:49 Glucose 86 mg/dL (70-105) 08/20/18 16:49 Whole Bld Lactic Acid 1.38 mmol/L (0.60-1.99) 08/20/18 17:01 Calcium 8.4 mg/dL (8.6-10.3) L 08/20/18 16:49 Total Bilirubin 0.5 mg/dL (0.3-1.0) 08/20/18 16:49 AST 107 U/L (13-39) H 08/20/18 16:49 ALT 79 U/L (7-52) H 08/20/18 16:49 Alkaline Phosphatase 73 U/L (34-104) 08/20/18 16:49 Troponin I 0.02 ng/mL (0.01-0.05) 08/20/18 16:49 Total Protein 6.5 gm/dL (6.0-8.3) 08/20/18 16:49 Albumin 3.1 gm/dL (4.2-5.5) L 08/20/18 16:49 Globulin 3.4 gm/dL 08/20/18 16:49 Albumin/Globulin Ratio 0.9 (1.0-1.8) L 08/20/18 16:49 Triglycerides 103 mg/dL (<150) 08/20/18 16:49 Cholesterol 155 mg/dL (<200) 08/20/18 16:49 LDL Cholesterol Direct 107 mg/dL (75-193) 08/20/18 16:49 HDL Cholesterol 25 mg/dL (23-92) 08/20/18 16:49 TSH 9.36 uIU/ml (0.34-5.60) H 08/20/18 16:49 Digoxin 0.7 ng/ml (0.8-2.0) L 08/20/18 16:45 Salicylates < 25.0 mg/L (30.0-100.0) L 08/20/18 16:49 Acetaminophen < 10.0 ug/mL (10.0-30.0) L 08/20/18 16:49 Ethyl Alcohol < 10 mg/dL (0-10) 08/20/18 16:49 RPR NONREACTIVE (NONREACTIVE) 08/20/18 16:49 Hepatitis A IgM Ab Negative (Negative) 08/22/18 16:55 Hep Bs Antigen Negative (Negative) 08/22/18 16:55 Hep B Core IgM Ab Negative (Negative) 08/22/18 16:55 Hepatitis C Antibody >11.0 s/co ratio (0.0-0.9) H 08/22/18 16:55 - Physical Exam Vitals and I&O: Vital Signs Temp 0 F 08/29/18 06:12 Pulse 74 08/29/18 08:54 Resp 18 08/28/18 21:18 BP 117/64 08/28/18 21:18 Pulse Ox 96 08/28/18 21:18 Intake & Output 08/28/18 08/29/18 08/29/18 18:59 06:59 18:59 Intake Total 900 Balance 900 Intake: Oral 900 Other: # Voids 3 # Bowel Movements 0 Active Medications: Current Medications Acetaminophen (Tylenol) 650 mg PO Q4HR PRN PRN Reason: PAIN Stop: 10/19/18 20:23 Amiodarone HCl (Cordarone) 200 mg PO BID [facility] Stop: 10/20/18 08:59 Last Admin: 08/29/18 08:54 Dose: 200 mg Bisacodyl (Dulcolax 10 Mg Supp) 10 mg RC DAILY PRN PRN Reason: IF MOM INEFFECTIVE Stop: 10/19/18 20:23 Digoxin (Lanoxin) 0.125 mg PO MWF [facility] Stop: 10/20/18 08:59 Last Admin: 08/28/18 08:44 Dose: 0.125 mg Docusate Sodium (Colace) 100 mg PO DAILY [facility] Stop: 10/20/18 08:59 Last Admin: 08/29/18 08:53 Dose: 100 mg Famotidine (Pepcid) 20 mg PO BID [facility] Stop: 10/20/18 08:59 Last Admin: 08/29/18 08:53 Dose: 20 mg Lorazepam (Ativan) 0.5 mg PO Q4HR PRN; Protocol PRN Reason: Anxiety Stop: 09/19/18 20:42 Last Admin: 08/28/18 16:44 Dose: 0.5 mg Magnesium Hydroxide (Milk Of Magnesia) 30 ml PO DAILY PRN PRN Reason: BOWEL MAINTENANCE Stop: 10/19/18 20:23 Mirtazapine (Remeron) 30 mg PO HS [facility]; Protocol Stop: 10/19/18 20:59 Last Admin: 08/28/18 20:55 Dose: 30 mg Rivaroxaban (Xarelto) 10 mg PO DAILY [facility] Stop: 10/22/18 08:59 Last Admin: 08/29/18 08:54 Dose: 10 mg Sucralfate (Carafate) 1 gm PO ACHS [facility] Stop: 10/19/18 20:59 Last Admin: 08/29/18 06:51 Dose: 1 gm Zolpidem Tartrate (Ambien) 5 mg PO HS PRN PRN Reason: Insomnia Stop: 10/19/18 20:42 Last Admin: 08/24/18 20:58 Dose: 5 mg General: weak, demented HEENT: NC/AT Neck: Supple Lungs: CTAB Cardiovascular: Normal S1, Normal S2 Abdomen: soft, non-tender Extremities: excoriation Neurological: no change, disorganized Internal Medicine Assmt/Plan - Assessment Assessment: depression thrombocytopenia htn hx cva tia dyslipidemia - Plan Plan: fall precautions follow up cbc in am continue current plan of care Nutritional Asmnt/Malnutr-PDOC - Dietary Evaluation Malnutrition Findings (Please click <Entered> for more info): Nutritional Asmnt/Malnutrition Start: 08/24/18 09: 49 Text: Status: Complete Freq: Protocol: Document 08/24/18 09:50 ERWIN (Rec: 08/24/18 09:54 ERWIN ANGUIANO- FNS1) Nutritional Asmnt/Malnutrition Patient General Information Diagnosis psychosis Pertinent Medical Hx/Surgical Hx HTN, CVA, TIA, dyslipidemia, PAd, GERD, dementia Subjective Information Pt asleep at time of visit Current Diet Order/ Nutrition Support mechanical soft chopped Pertinent Medications bisacodyl, coalce, pepcid, MOM , sucrafate Pertinent Labs 10/23: Na 140, K 4.3, Cl 105, CO2 27, BUN 25, Cr 1.7, Ca 8.4 , glucose 86 Nutritional Hx/Data Height 5 ft 9 in Height (Calculated Centimeters) 175.3 Current Weight (lbs) 180 lb Weight (Calculated Kilograms) 81.6 Weight (Calculated Grams) 42617.6 Body Mass Index (BMI) 26.6 Weight Status Underweight GI Symptoms GI Symptoms None Last BM 08/23 Cultural/Ethnic/Hinduism Belief unknown Usual diet at home mechanical soft chopped Skin Integrity/Comment: timothy score 15 Estimated Nutritional Goals BEE in Kcals: Using Current wt Calories/Kcals/Kg 25-30kcals/kg Kcals Calculated 2049-2460kcals/day Protein: Using Current wt Protein g/kg: ~1g/kg Protein Calculated ~82kg/day Fluid: ml per MD Nutritional Problem 1. Problem Problem No nutrition diagnosis at this time Intervention/Recommendation Comments Recommend continuing ALEXANDER Mechancial soft diet Expected Outcomes/Goals Expected Outcomes/Goals PO intake >75% of meals
== END 2018-08-29 13:00 | DRG 885 ==
LOC: ER 16:20 → GERO 18:30
PROVIDERS: ADMIT Psychiatry & Neurology Psychiatry; ATTEND Psychiatry & Neurology Psychiatry
DX: F33.9 Major depressive disorder, recurrent, unspecified (principal); D69.6 Thrombocytopenia, unspecified; Z86.73 Personal history of transient ischemic attack (TIA), and cerebral infarction without residual deficits; E78.5 Hyperlipidemia, unspecified; K74.60 Unspecified cirrhosis of liver; R00.1 Bradycardia, unspecified; K21.9 Gastro-esophageal reflux disease without esophagitis; I10 Essential (primary) hypertension; F03.90 Unspecified dementia, unspecified severity, without behavioral disturbance, psychotic disturbance, mood disturbance, and anxiety; T50.995A Adverse effect of other drugs, medicaments and biological substances, initial encounter; Y92.89 Other specified places as the place of occurrence of the external cause; F33.1 Major depressive disorder, recurrent, moderate; Z88.0 Allergy status to penicillin; Z88.8 Allergy status to other drugs, medicaments and biological substances; Z82.49 Family history of ischemic heart disease and other diseases of the circulatory system
CPT/HCPCS: 36415-UA; 80053-TC; 80061-TC; 80074-90; 80162-TC; 80320-TC; 80329-TC; 83036-90; 83605; 84443-TC; 84484-TC; 85025-TC; 86592-TC; 93005; Z7610